=== PATIENT | male | born 1965 | race Caucasian/White ===

== ENCOUNTER 2016-08-10 21:10 | Emergency (ER) | payer OTHER ==
[~2016-08-10] VITALS: Ht 175.3 cm; Wt 77.1 kg
[~2016-08-10 21:10] MED LIST: ALBU17IN2 INH; PAXI20TA3 PO; PROP1TAB29 PO; SERO1TAB PO
[2016-08-10] MEDS ORDERED: LISI-538 PO (21:32)
[2016-08-10] MEDS ORDERED: METH40TA PO (21:32)
[2016-08-10] MEDS ORDERED: CELE20TA PO (21:32)
[2016-08-10] MEDS ORDERED: IPRATROPIUM 0.5MG/ALBUTEROL 2.5MG INH SOL UD 3ML (DUONEB)(J7620) NEB ONE (22:30)
[2016-08-10] MEDS ORDERED: methylPREDNISolone INJ 125 MG/2 ML VIAL (J2930) IV ONE (22:30)
[2016-08-10] MEDS ORDERED: ALBUTEROL SULFATE 2.5 MG/0.5 ML INH NEB SOLN INH ONE (22:30)
[2016-08-10 22:54] LABS: ABG BASE EXCESS 3.5 (-2.0-2.0); ABG HCO3 29.5 MEQ/L (22.0-26.0); ABG PARTIAL PRESSURE CO2 50.1 mmHg (35.0-45.0); ABG PARTIAL PRESSURE O2 58.1 mmHg (75.0-100.0); ABG STANDARD HCO3 27.5 MEQ/L (22.0-26.0); ABG pH (ARTERIAL) 7.388 UNITS (7.350-7.450)
[2016-08-10 23:24] LABS: BASO % 0.1 % (0.0-1.0); EOS # 0.2 K/mm3 (0.0-0.50); EOS % 1.8 % (0.0-3.0); LARGE UNSTAINED CELL # 0.1 K/mm3 (0.0-0.4); LARGE UNSTAINED CELL % 0.7 % (0.0-4.0); LYMPH # 0.8 K/mm3 (1.5-4.5); LYMPH % 9.4 % (24.0-44.0); MEAN CORPUSCULAR HEMOGLOBIN 33.2 pg (27.0-33.0); MEAN CORPUSCULAR HGB CONC 33.7 g/dl (32.0-36.5); MEAN CORPUSCULAR VOLUME 98.8 fl (80.0-96.0); MONO # 0.1 K/mm3 (0.0-0.8); MONO % 1.4 % (0.0-5.0); NEUTROPHILS # 7.8 K/mm3 (1.8-7.7); NEUTROPHILS % 86.7 % (36.0-66.0); PLATELET COUNT, AUTOMATED 218 k/mm3 (150-450); RED CELL DISTRIBUTION WIDTH 12.9 % (11.5-14.5)
[2016-08-10 23:37] LABS: ANION GAP 7 MEQ/L (8-16); BLOOD UREA NITROGEN 15 MG/DL (7-18); CALCIUM LEVEL 8.1 MG/DL (8.5-10.1); CARBON DIOXIDE LEVEL 31 MEQ/L (21-32); CHLORIDE LEVEL 101 MEQ/L (98-107); CREATININE FOR GFR 1.07 MG/DL (0.70-1.30); GLOMERULAR FILTRATION RATE > 60.0 (>60); GLUCOSE, FASTING 120 MG/DL (70-105); POTASSIUM SERUM 3.6 MEQ/L (3.5-5.1); SODIUM LEVEL 139 MEQ/L (136-145)
[2016-08-11 00:08] VITALS: O2SAT 91
[2016-08-11 00:09] VITALS: BP 110/64
[2016-08-11] MEDS ORDERED: MUCI600T34 PO (00:11)
[2016-08-11] MEDS ORDERED: ALBU17IN INH (00:11)
[2016-08-11] MEDS ORDERED: PRED20TA PO (00:11)
--- NOTE | 2016-08-11 08:48 | REP ---
Chest x-ray: Two views. History: Shortness of breath. Comparison study January 03, 2016. Findings: There are increased markings in the left base suggesting early left lower lobe infiltrate. Lung edward are otherwise well inflated and clear. Pleural angles are sharp. Cardiomediastinal silhouette is unremarkable. Impression: Subtle left base infiltrate, suspect left lower lobe pneumonia. Signed by Carlos Sherman MD 08/11/2016 08:40 A
== END 2016-08-11 00:21 | disposition home or self-care (01) ==
LOC: EDBD 21:10 → M ED 23:33
DX: J45.901 Unspecified asthma with (acute) exacerbation (principal)

== ENCOUNTER → 2016-11-02 | Outpatient (CLI) | payer OTHER ==
[~2016-11-02] MED LIST changes: +ALBU17IN INH; +CELE20TA PO; +LISI-538 PO; +METH40TA PO; +MUCI600T34 PO; +PRED20TA PO
--- NOTE | 2016-11-02 09:17 | REP ---
Right shoulder three views: Comparison is 11/08/2015. Mineralization is normal. The acromioclavicular glenohumeral articulations are unremarkable. There is no fracture or dislocation. No calcifications or foreign bodies. Impression: Negative right shoulder. There is no interval change. Sign taking Signed by Stan Torres MD 11/02/2016 09:08 A
--- NOTE | 2016-11-02 09:44 | REP ---
Cervical spine series: Eight views. History: Neck pain. Findings: Lateral views done in flexion/extension and neutral position show preserved vertebral body heights and normal alignment. No subluxation or instability is seen. Disc space narrowing and anterior and posterior osteophyte formation are seen at C4-5, C5-6, and C6-7. There is a vacuum phenomenon at the C5-6 level. These changes indicate degenerative disc disease. Swimmers lateral view shows no additional abnormality. Open-mouth odontoid and AP views are unremarkable. Oblique radiographs demonstrate uncovertebral spurring on the left producing neural foraminal narrowing at C5-6. Mild uncovertebral spurring is seen on the right at C4-5 and C5-6. Impression: Degenerative disc changes C4-5 through C6-7 as described above. Signed by Carlos Sherman MD 11/02/2016 01:18 P
== END ==
LOC: M RAD 08:23
PROVIDERS: ATTEND Nurse Practitioner Family
DX: M54.2 Cervicalgia (principal); M25.511 Pain in right shoulder

== ENCOUNTER → 2016-12-03 | Outpatient (CLI) | payer OTHER ==
[~2016-12-03] MED LIST changes: -MUCI600T34 PO; +MUCI600T37 PO; +PAXI20TA29 PO; -PAXI20TA3 PO
--- NOTE | 2016-12-03 14:02 | REP ---
MRI RIGHT SHOULDER: TECHNIQUE: Axial T2 fat sat, gradient echo, sagittal oblique T2 fat sat, coronal oblique T1, T2 fat sat. There is increased signal on T2-weighted images in the supraspinatus tendon primarily anteriorly, extending through the entire thickness of the tendon compatible with a partial full thickness tear. The rotator cuff tendons appear intact. There are mild hypertropic degenerative changes of the acromioclavicular joint. Acromion is not hooked in shape. Biceps tendon is within the bicipital groove. There is moderate fluid surrounding the biceps tendon which may indicate tenosynovitis. There is no Hill-Sach's deformity. There is no abnormal signal in the deltoid muscle. There is ill-defined high signal in the region of the superior labrum which probably represents some degree of fraying. No other definite labral tear is seen, but the study is somewhat limited due to patient motion. Subchondral cystic changes are seen in the superolateral humeral head. There is no occult fracture. There is no paralabral cyst. IMPRESSION: Full thickness partial tear anterior supraspinatus tendon. Mild hypertrophic degenerative changes acromioclavicular joint. There appears to be fraying of the superior labrum. Evaluation of the labrum is limited due to patient motion. Subchondral cystic changes superolateral humeral head. Fluid around the biceps tendon may indicate tendosynovitis. Signed by Stan Hester MD 12/03/2016 05:09 P
== END ==
LOC: M RAD 11:33
PROVIDERS: ATTEND Nurse Practitioner Family
DX: S46.011A Strain of muscle(s) and tendon(s) of the rotator cuff of right shoulder, initial encounter (principal); X58.XXXA Exposure to other specified factors, initial encounter; Y92.89 Other specified places as the place of occurrence of the external cause; Y93.89 Activity, other specified; Y99.8 Other external cause status

== ENCOUNTER → 2017-02-25 | Outpatient (REF) | payer OTHER ==
[2017-02-25 19:30] LABS: BASO # 0.1 10^3/uL (0.0-0.2); BASO % 0.4 % (0.0-1.0); EOS # 0.3 10^3/uL (0.0-0.50); EOS % 2.5 % (0.0-3.0); IMMATURE GRANULOCYTE % 0.4 % (0-0); LYMPH # 3.1 10^3/uL (1.5-4.5); LYMPH % 23.1 % (24.0-44.0); MEAN CORPUSCULAR HEMOGLOBIN 32.7 pg (27.0-33.0); MEAN CORPUSCULAR HGB CONC 33.3 g/dl (32.0-36.5); MEAN CORPUSCULAR VOLUME 98.2 fl (80.0-96.0); MONO # 1.3 10^3/uL (0.0-0.8); MONO % 9.5 % (0.0-5.0); NEUTROPHILS # 8.5 10^3/uL (1.8-7.7); NEUTROPHILS % 64.1 % (36.0-66.0); PLATELET COUNT, AUTOMATED 295 10^3/uL (150-450); RED CELL DISTRIBUTION WIDTH 12.9 % (11.5-14.5); WHITE BLOOD COUNT 13.3 10^3/uL (4.0-10.0)
[2017-02-25 20:22] LABS: VITAMIN B12 LEVEL 552 PG/ML (247-911)
[2017-02-25 20:32] LABS: ALBUMIN 3.8 GM/DL (3.2-5.2); ALBUMIN/GLOBULIN RATIO 1.03 (1.00-1.93); ALKALINE PHOSPHATASE 63 U/L (45-117); ALT/SGPT 29 U/L (12-78); ANION GAP 6 MEQ/L (8-16); AST/SGOT 21 U/L (15-37); BILIRUBIN,TOTAL 0.4 MG/DL (0.2-1.0); BLOOD UREA NITROGEN 12 MG/DL (7-18); CALCIUM LEVEL 8.9 MG/DL (8.5-10.1); CARBON DIOXIDE LEVEL 30 MEQ/L (21-32); CHLORIDE LEVEL 101 MEQ/L (98-107); CHOLESTEROL LEVEL 253 MG/DL (<200); CREATININE FOR GFR 0.76 MG/DL (0.70-1.30); FERRITIN 94 NG/ML (26-388); GLOMERULAR FILTRATION RATE > 60.0 (>60); GLUCOSE, FASTING 76 MG/DL (70-105); PERCENT SATURATION 14.8 % (19.7-50.0); POTASSIUM SERUM 4.4 MEQ/L (3.5-5.1); SODIUM LEVEL 137 MEQ/L (136-145); TOTAL IRON BINDING CAPACITY 237 UG/DL (250-450); TOTAL PROTEIN 7.5 GM/DL (6.4-8.2); TRIGLYCERIDES LEVEL 193 MG/DL (<150)
== END ==
LOC: M SFHCPLAZ 15:33
PROVIDERS: ATTEND Physician Assistant Medical
DX: Z86.2 Personal history of diseases of the blood and blood-forming organs and certain disorders involving the immune mechanism (principal); I10 Essential (primary) hypertension; E78.00 Pure hypercholesterolemia, unspecified

== ENCOUNTER → 2017-03-13 | Outpatient (REF) | payer OTHER | LOC: M SFHCPLAZ 11:36 | PROVIDERS: ATTEND Physician Assistant Medical | DX: D50.9 Iron deficiency anemia, unspecified (principal) ==

== ENCOUNTER 2017-07-30 10:42 | Outpatient (CLI) | payer OTHER ==
[2017-07-31 13:23] LABS: BASO % 0.5 % (0.0-1.0); EOS # 0.3 10^3/uL (0.0-0.50); EOS % 3.5 % (0.0-3.0); HEMATOCRIT 43.6 % (42.0-52.0); IMMATURE GRANULOCYTE % 0.5 % (0-3.0); LYMPH # 2.7 10^3/uL (1.5-4.5); MEAN CORPUSCULAR HGB CONC 34.4 g/dl (32.0-36.5); MONO # 0.6 10^3/uL (0.0-0.8); MONO % 6.8 % (0.0-5.0); NEUTROPHILS # 4.8 10^3/uL (1.8-7.7); NEUTROPHILS % 56.7 % (36.0-66.0); PLATELET COUNT, AUTOMATED 347 10^3/uL (150-450); RED BLOOD COUNT 4.69 10^6/uL (4.30-6.10); RED CELL DISTRIBUTION WIDTH 13.2 % (11.5-14.5); WHITE BLOOD COUNT 8.5 10^3/uL (4.0-10.0)
[2017-07-31 14:27] LABS: ALBUMIN 4.2 GM/DL (3.2-5.2); ALBUMIN/GLOBULIN RATIO 1.17 (1.00-1.93); ALKALINE PHOSPHATASE 84 U/L (45-117); ALT/SGPT 17 U/L (12-78); ANION GAP 9 MEQ/L (8-16); AST/SGOT 16 U/L (7-37); BILIRUBIN,TOTAL 0.4 MG/DL (0.2-1.0); BLOOD UREA NITROGEN 19 MG/DL (7-18); CARBON DIOXIDE LEVEL 27 MEQ/L (21-32); CHLORIDE LEVEL 99 MEQ/L (98-107); CREATININE FOR GFR 0.92 MG/DL (0.70-1.30); GLOMERULAR FILTRATION RATE > 60.0 (>56); GLUCOSE, FASTING 89 MG/DL (70-100); POTASSIUM SERUM 4.3 MEQ/L (3.5-5.1); SODIUM LEVEL 135 MEQ/L (136-145); TOTAL PROTEIN 7.8 GM/DL (6.4-8.2)
== END 2017-07-31 ==
LOC: M LAB 10:42
DX: F11.20 Opioid dependence, uncomplicated (principal)
CPT/HCPCS: 93005

== ENCOUNTER 2018-01-13 18:12 | Emergency (ER) | payer OTHER | END 2018-01-13 20:31 | disposition left against medical advice (07) | LOC: M ED 18:12 | DX: Z53.21 Procedure and treatment not carried out due to patient leaving prior to being seen by health care provider (principal) ==

== ENCOUNTER → 2018-07-23 | Outpatient (REF) | payer OTHER ==
[~2018-07-23] MED LIST changes: +BENA25CA4 PO; +GABA800T4 PO; +HYDR-3363 PO; +METH10CO6 PO; -PROP1TAB29 PO; +PROP20TA72 PO; +SERT-138 PO
[2018-07-23 18:08] LABS: BASO # 0.1 10^3/uL (0.0-0.2); BASO % 0.7 % (0.0-1.0); EOS # 0.4 10^3/uL (0.0-0.50); EOS % 5.5 % (0.0-3.0); HEMATOCRIT 39.3 % (42.0-52.0); HEMOGLOBIN 13.3 g/dl (13.5-17.5); LYMPH # 2.7 10^3/uL (1.5-4.5); LYMPH % 36.7 % (24.0-44.0); MEAN CORPUSCULAR HEMOGLOBIN 31.9 pg (27.0-33.0); MEAN CORPUSCULAR HGB CONC 33.8 g/dl (32.0-36.5); MEAN CORPUSCULAR VOLUME 94.2 fl (80.0-96.0); MONO # 0.8 10^3/uL (0.0-0.8); MONO % 11.1 % (0.0-5.0); NEUTROPHILS # 3.4 10^3/uL (1.8-7.7); NEUTROPHILS % 45.6 % (36.0-66.0); PLATELET COUNT, AUTOMATED 337 10^3/uL (150-450); RED BLOOD COUNT 4.17 10^6/uL (4.30-6.10); WHITE BLOOD COUNT 7.4 10^3/uL (4.0-10.0)
[2018-07-23 18:37] LABS: ALBUMIN 3.9 GM/DL (3.2-5.2); ALT/SGPT 23 U/L (12-78); BILIRUBIN,TOTAL 0.2 MG/DL (0.2-1.0); BLOOD UREA NITROGEN 22 MG/DL (7-18); CALCIUM LEVEL 8.7 MG/DL (8.5-10.1); CARBON DIOXIDE LEVEL 32 MEQ/L (21-32); CHLORIDE LEVEL 102 MEQ/L (98-107); CHOLESTEROL LEVEL 314 MG/DL (<200); CHOLESTEROL RISK RATIO 8.263 (<5); CPK CREATINE PHOSPHOKINASE 90 U/L (39-308); CREATININE FOR GFR 0.73 MG/DL (0.70-1.30); GLOMERULAR FILTRATION RATE > 60.0 (>56); GLUCOSE, FASTING 65 MG/DL (70-100); HDL CHOLESTEROL 38 MG/DL (>40); LDL CHOLESTEROL 212 MG/DL (<100); NON-HDL-C 276 MG/DL; POTASSIUM SERUM 4.6 MEQ/L (3.5-5.1); SODIUM LEVEL 137 MEQ/L (136-145); TOTAL PROTEIN 7.3 GM/DL (6.4-8.2); TRIGLYCERIDES LEVEL 322 MG/DL (<150)
== END ==
LOC: M SFHCPLAZ 15:58
PROVIDERS: ATTEND Physician Assistant Medical
DX: E78.00 Pure hypercholesterolemia, unspecified (principal); Z86.2 Personal history of diseases of the blood and blood-forming organs and certain disorders involving the immune mechanism

== ENCOUNTER 2018-07-26 10:47 | Inpatient (IN) | payer OTHER ==
[~2018-07-26] VITALS: Ht 175.3 cm; Wt 76.7 kg
--- NOTE | 2018-07-26 11:08 | REP ---
Clinical: Acute cerebrovascular accident . Comparison: 11/24/2015 . Findings: The ventricles, sulci, and cisterns are normal in position and appearance. Hester-white differentiation is maintained. No acute intracranial hemorrhage, mass/mass effect, pathology or trauma/injury. No evidence for acute infarction. No extra-axial fluid collection. Calvarium is intact. Paranasal sinuses and mastoid air cells are clear. Impression: Normal noncontrast head CT. No evidence for acute intracranial pathology or trauma/injury. Electronically Signed by Iam Garcia MD 07/26/2018 11:00 A
[2018-07-26] MEDS ORDERED: ISOVUE-370 76% 100ML VIAL (Q9967) As Ordered ONE (11:10)
--- NOTE | 2018-07-26 11:19 | REP ---
Clinical: Cerebrovascular accident . Comparison: 08/10/2016 . Findings: The mediastinum and cardiac silhouette are stable and within normal limits for portable technique. The lung edward are clear without acute consolidation, effusion, or pneumothorax. Skeletal structures are intact. Impression: No acute cardiopulmonary process appreciated. Electronically Signed by Iam aGrcia MD 07/26/2018 11:11 A
[2018-07-26] MEDS ORDERED: VENTAER INH (11:29)
[2018-07-26] MEDS ORDERED: SLEE25TA PO (11:29)
[2018-07-26 11:35] LABS: BASO % 0.2 % (0.0-1.0); EOS # 0.3 10^3/uL (0.0-0.50); EOS % 1.4 % (0.0-3.0); HEMATOCRIT 37.5 % (42.0-52.0); HEMOGLOBIN 12.3 g/dl (13.5-17.5); LYMPH # 2.2 10^3/uL (1.5-4.5); LYMPH % 11.6 % (24.0-44.0); MEAN CORPUSCULAR HEMOGLOBIN 32.5 pg (27.0-33.0); MEAN CORPUSCULAR HGB CONC 32.8 g/dl (32.0-36.5); MEAN CORPUSCULAR VOLUME 98.9 fl (80.0-96.0); MONO # 1.5 10^3/uL (0.0-0.8); MONO % 7.7 % (0.0-5.0); NEUTROPHILS # 14.9 10^3/uL (1.8-7.7); NEUTROPHILS % 78.6 % (36.0-66.0); PLATELET COUNT, AUTOMATED 299 10^3/uL (150-450); RED BLOOD COUNT 3.79 10^6/uL (4.30-6.10); WHITE BLOOD COUNT 18.9 10^3/uL (4.0-10.0)
[2018-07-26 11:42] LABS: INR 1.03; PROTHROMBIN TIME 13.6 SECONDS (12.1-14.4)
[2018-07-26 11:43] LABS: PARTIAL THROMBOPLASTIN TIME 28.8 SECONDS (25.4-37.6)
[2018-07-26] MEDS ORDERED: IPRATROPIUM 0.5MG/ALBUTEROL 2.5MG INH SOL UD 3ML (DUONEB)(J7620) NEB ONE (11:45)
[2018-07-26] MEDS ORDERED: ALBUTEROL SULFATE 2.5 MG/0.5 ML INH NEB SOLN INH ONE (11:45)
--- NOTE | 2018-07-26 11:56 | REP ---
Clinical: Left facial droop. Technique: Axial contrast enhanced images obtained in arterial angiographic phase from the skull base to the vertex with coronal and sagittal re-formations. 100 ml Isovue 370 intravenous contrast material administered without complication. Findings: Atherosclerotic disease of the intracranial internal carotid arteries noted. [place] of [place], vertebrobasilar system and arterial vasculature to the bilateral hemispheres appear intact and symmetric. No arteriovenous malformation or obvious aneurysm identified. Impression: Mild atherosclerotic changes of the visualized internal carotid arteries. Otherwise unremarkable examination without significant asymmetry, area of occlusion, AV malformation or aneurysm. Electronically Signed by Iam Garcia MD 07/26/2018 11:46 A
--- NOTE | 2018-07-26 12:07 | REP ---
Clinical: Left facial droop. Technique: Axial contrast enhanced images are obtained following the intravenous administration of 100 mL of Isovue 370. Sagittal, coronal and 3D reconstruction images are performed. Findings: Partially calcified atheromatous plaque identified at the bilateral carotid bulbs bilaterally without evidence for significant stenosis/narrowing. Asymmetric tortuosity noted of the left internal carotid artery. The bilateral common carotid arteries as well as the visualized internal carotid arteries are otherwise patent and relatively symmetric without evidence for significant stenosis. The vertebral arteries are essentially symmetric and patent. Surrounding visualized soft tissues of the neck are essentially symmetric and normal. No obvious mass lesion is appreciated. No significant adenopathy noted. Incidental note is made of mild scattered patchy ill-defined opacities in the visualized lung apices. IMPRESSION: 1. Mild mixed atheromatous plaquing of the bilateral carotid bulbs (left greater than right) without areas of stenosis. Electronically Signed by Iam Garcia MD 07/26/2018 11:58 A
[2018-07-26] MEDS ORDERED: ATORVASTATIN 20 MG TAB PO ONE (12:15)
[2018-07-26] MEDS ORDERED: ASPIRIN 81 MG CHEW TABLET PO ONE (12:15)
[2018-07-26] MEDS ORDERED: NS 1,000 ML IV ONE ×3 (12:15→14:00)
[2018-07-26 12:25] LABS: BLOOD UREA NITROGEN 35 MG/DL (7-18); CALCIUM LEVEL 8.3 MG/DL (8.5-10.1); CARBON DIOXIDE LEVEL 28 MEQ/L (21-32); CHLORIDE LEVEL 102 MEQ/L (98-107); CPK CREATINE PHOSPHOKINASE 1555 U/L (39-308); CREATININE FOR GFR 3.19 MG/DL (0.70-1.30); GLUCOSE, FASTING 89 MG/DL (70-100); MB/CK RELATIVE INDEX 6.08 (< OR =4); POTASSIUM SERUM 4.5 MEQ/L (3.5-5.1); SODIUM LEVEL 137 MEQ/L (136-145); TROPONIN I < 0.02 NG/ML (< 0.10)
[2018-07-26 14:20] LABS: SALICYLATE LEVEL 2.8 MG/DL (5.0-30.0)
[2018-07-26 14:21] LABS: ACETAMINOPHEN LEVEL < 2.0 UG/ML (10.0-30.0); ETHYL ALCOHOL (ETHANOL) < 0.003 % (0.000-0.010)
[2018-07-26 15:44] LABS: AMPHETAMINES LEVEL URINE NEGATIVE (NEGATIVE); BARBITURATES URINE NEGATIVE (NEGATIVE); BENZODIAZEPINES URINE NEGATIVE (NEGATIVE); CANNABINOIDS URINE NEGATIVE (NEGATIVE); COCAINE METABOLITE URINE NEGATIVE (NEGATIVE); METHADONE URINE POSITIVE (NEGATIVE); OPIATES URINE NEGATIVE (NEGATIVE); PHENCYCLIDINE URINE NEGATIVE (NEGATIVE)
[2018-07-26] MEDS ORDERED: ONDANSETRON 4MG/2ML VIAL (J2405) IV PRN (16:15)
[2018-07-26] MEDS: LR 1,000 ML IV SCH ×2 (16:50→20:52)
[2018-07-26] MEDS ORDERED: LevoFLOXacin IV 500 MG in APPROPRIATE DILUENT 1 EA IV ONE (17:00)
[2018-07-26 17:03] LABS: ALBUMIN 3.2 GM/DL (3.2-5.2); BILIRUBIN,TOTAL 0.4 MG/DL (0.2-1.0); CALCIUM LEVEL 7.7 MG/DL (8.5-10.1); CREATININE FOR GFR 2.48 MG/DL (0.70-1.30); GLOMERULAR FILTRATION RATE 29.4 (>56); PHOSPHORUS LEVEL 4.4 MG/DL (2.5-4.9); POTASSIUM SERUM 4.2 MEQ/L (3.5-5.1)
[2018-07-26] MEDS: METHADONE 10 MG TAB (S0109) PO SCH (17:23)
[2018-07-26] MEDS ORDERED: NS 500 ML IV ONE (18:00)
[2018-07-26] MEDS: PANTOPRAZOLE 40MG INJ (PROTONIX) (C9113) IV SCH (18:23)
[2018-07-26] MEDS: methylPREDNISolone INJ 40 MG/1 ML VIAL (J2920) IV SCH (18:23)
--- NOTE | 2018-07-26 19:18 | ECGEPIP ---
Stationary ECG Study [facility] - ED Test Date: 2018-07-26 Pat Name: JANETH BELLO Department: Room: - Gender: M Outreach Associate: TC : 1965 Requested By: Nisreen Jose Order Number: [id number] Reading MD: Nisreen Jose Measurements Intervals [place] Rate: 77 P: 33 MO: 148 QRS: 34 QRSD: 96 T: 17 QT: 364 QTc: 414 Interpretive Statements SINUS RHYTHM NONSPECIFIC T-WAVE ABNORMALITY CW 07/31/[address] T WAVE CHANGES Electronically Signed On 07-26-2018 19:18:00 EST by Nisreen Jose
[2018-07-26] MEDS: IPRATROPIUM 0.5MG/ALBUTEROL 2.5MG INH SOL UD 3ML (DUONEB)(J7620) NEB SCH (20:00)
[2018-07-26 20:40] VITALS: BP 132/63
[2018-07-26] MEDS: ENOXAPARIN 40 MG/0.4 ML SYRINGE (J1650) SC SCH (20:52)
[2018-07-26] MEDS: GABAPENTIN 400 MG CAP PO SCH (20:52)
[2018-07-26] MEDS: TAMSULOSIN 0.4 MG CAP PO SCH (20:52)
[2018-07-26 22:22] LABS: ALBUMIN 3.3 GM/DL (3.2-5.2); CALCIUM LEVEL 8.2 MG/DL (8.5-10.1); CREATININE FOR GFR 1.47 MG/DL (0.70-1.30); GLOMERULAR FILTRATION RATE 53.8 (>56); PHOSPHORUS LEVEL 1.9 MG/DL (2.5-4.9); POTASSIUM SERUM 4.6 MEQ/L (3.5-5.1)
[2018-07-26 23:59] VITALS: BP 98/55
[2018-07-27 04:00] VITALS: BP 118/65
[2018-07-27 05:52] LABS: BASO % 0.2 % (0.0-1.0); EOS % 0.3 % (0.0-3.0); HEMATOCRIT 34.5 % (42.0-52.0); HEMOGLOBIN 11.3 g/dl (13.5-17.5); LYMPH # 1.5 10^3/uL (1.5-4.5); LYMPH % 17.2 % (24.0-44.0); MEAN CORPUSCULAR HEMOGLOBIN 31.4 pg (27.0-33.0); MEAN CORPUSCULAR HGB CONC 32.8 g/dl (32.0-36.5); MEAN CORPUSCULAR VOLUME 95.8 fl (80.0-96.0); MONO # 0.4 10^3/uL (0.0-0.8); MONO % 4.6 % (0.0-5.0); NEUTROPHILS # 6.8 10^3/uL (1.8-7.7); NEUTROPHILS % 77.1 % (36.0-66.0); PLATELET COUNT, AUTOMATED 235 10^3/uL (150-450); WHITE BLOOD COUNT 8.9 10^3/uL (4.0-10.0)
[2018-07-27] MEDS: IPRATROPIUM 0.5MG/ALBUTEROL 2.5MG INH SOL UD 3ML (DUONEB)(J7620) NEB SCH ×4 (05:55→20:00)
[2018-07-27] MEDS: methylPREDNISolone INJ 40 MG/1 ML VIAL (J2920) IV SCH ×2 (05:59→17:26)
[2018-07-27] MEDS: LR 1,000 ML IV SCH ×2 (05:59→11:09)
[2018-07-27 06:13] LABS: ALBUMIN 2.8 GM/DL (3.2-5.2); ALT/SGPT 34 U/L (12-78); BILIRUBIN,TOTAL 0.6 MG/DL (0.2-1.0); BLOOD UREA NITROGEN 18 MG/DL (7-18); CALCIUM LEVEL 8.4 MG/DL (8.5-10.1); CARBON DIOXIDE LEVEL 26 MEQ/L (21-32); CHLORIDE LEVEL 111 MEQ/L (98-107); CPK CREATINE PHOSPHOKINASE 895 U/L (39-308); CREATININE FOR GFR 0.98 MG/DL (0.70-1.30); GLOMERULAR FILTRATION RATE > 60.0 (>56); GLUCOSE, FASTING 101 MG/DL (70-100); POTASSIUM SERUM 5.1 MEQ/L (3.5-5.1); SODIUM LEVEL 141 MEQ/L (136-145)
[2018-07-27 08:00] VITALS: BP 135/78
[2018-07-27] MEDS: PANTOPRAZOLE 40MG INJ (PROTONIX) (C9113) IV SCH (08:42)
[2018-07-27] MEDS: SERTRALINE HCL 50 MG TAB PO SCH (08:43)
[2018-07-27] MEDS: ASPIRIN 325 MG TAB PO SCH (08:43)
[2018-07-27] MEDS: GABAPENTIN 400 MG CAP PO SCH ×3 (08:44→20:04)
[2018-07-27] MEDS: METHADONE 10 MG TAB (S0109) PO SCH (08:44)
[2018-07-27] MEDS ORDERED: FLUBLOK(EGG FREE)(QUAD)INFLUENZA VACC 0.5ML SYRINGE (90682)18YRS&OLDER IM ONE (09:00)
--- NOTE | 2018-07-27 11:50 | IPNPDOC ---
Subjective Date Seen The patient was seen on 07/27/18. Subjective Chief Complaint/HPI desires to advance diet-took pills s difficulty, improving L sided weakness Constitutional: Denies: Chills, Fever Eyes: Denies: Pain ENT: Denies: Head Aches Skin: Denies: Rash Pulmonary: Denies: Dyspnea, Cough Cardiovascular: Denies: Chest Pain Gastrointestinal: Denies: Nausea, Vomiting Neurological: Reports: Weakness Objective Physical Examination General Exam: Positive: Alert Eye Exam: Positive: PERRLA ENT Exam: Positive: Atraumatic Neck Exam: Negative: JVD Chest Exam: Positive: Rhonchi, Diminished Heart Exam: Positive: Rate Normal Telemetry: Positive: No significant arrhythmia Abdomen Exam: Positive: Normal bowel sounds Extremity Exam: Negative: Edema Skin Exam: Negative: Rash Neuro Exam: Positive: Strength at 5/5 X4 ext (L mild facial droop, 4+/5 L LLE>LUE), Sensation Intact (decreased LT/PP L hand) Psych Exam: Positive: Mental status NL Assessment /Plan Problems (1) Non-hemorrhagic cerebrovascular accident (CVA) Status: Acute Response to Treatment: Stable Problem Specific Plan: Consult Specialist Problem Text: Continues asa 325 (started 07/26/18), rosuva 40 (started 07/27/18) 07/27/18 improving weakness 07/26/18 CT head, CTA head/neck scattered atheromatous plaque 07/27/18 MRI/MRA brain P PT/OT/ST P MBS P for 07/28 (2) Asthma exacerbation Status: Acute Problem Text: D2 levo/SM/alb/atro neb q6H 07/27 improving, AF, on RA, WBC 9 (18.9) 07/26 BCX2 NG 07/26 RP - (3) Acute kidney injury Status: Acute Problem Text: 07/27 resolved c aggressive hydration to 18/1.0, 5.1; therefore, changed LR 200H to 1/2NS 100 c slow advancement of honey-thick liquids (until MBS) (4) Physical deconditioning Status: Acute (5) Methadone maintenance therapy patient Status: Chronic Problem Text: opioid and alcohol use disorder on maintenance methadone 125 QD (per patient from [facility]) 3/ lower dose 40 administered 2 soft BP, lethargy (6) Nicotine use disorder Problem Text: baseline 10 cigs QD 3/3 + 2 mg gum per patient request (7) Rhabdomyolysis Status: Acute Problem Text: improving c hydration-/07/26 admit CPK 1563 c EMANUEL (undetermined etiology) 07/27 895 (8) Hyperlipidemia Status: Chronic Problem Text: chronic non-compliance 07/27 + rosuva 40-watch CPK (9) Hypertension Status: Chronic Problem Text: Stable off HD lisin 20 (10) BPH w urinary obs/LUTS Status: Chronic Problem Text: no evidence of obstruction of on HD tamsul 0.4 (11) MDD (major depressive disorder) Status: Chronic Problem Text: Stable on HD sert/ian Plan/VTE VTE Prophylaxis Ordered?: Yes VS, I&O, 24H, Fishbone Vital Signs/I&O Vital Signs Date Time Temp Pulse Resp B/P (MAP) Pulse Ox O2 Delivery O2 Flow Rate FiO2 07/27/18 08:44 16 07/27/18 08:00 96.5 76 135/78 (97) 97 07/26/18 11:35 Room Air I&O- Last 24 Hours up to 6 AM 07/27/18 06:00 Intake Total 2600 ml Output Total 1250 ml Balance 1350 ml Laboratory Data 24H LABS Laboratory Tests 2 07/26/18 13:55: Urine Color YELLOW, Urine Appearance CLEAR, Urine pH 5.0, Urine Specific [place] 1.020, Urine Protein NEGATIVE, Urine Glucose (UA) NEGATIVE, Urine Ketones NEGATI VE, Urine Blood 2+H, Urine Nitrite NEGATIVE, Urine Bilirubin NEGATIVE, Urine Urobilinogen 0.2, Urine Leukocyte Esterase NEGATIVE, Urine WBC (Auto) 0, Urine RBC (Auto) 0, Urine Hyaline Casts (Auto) 0, Urine Bacteria (Auto) NEGATIVE, Urine Squamous Epithelial Cells 0, Urine Sperm (Auto) , Urine Amphetamines Screen NEGATIVE, Urine Benzodiazepines Screen NEGATIVE, Urine Opiates Screen NEGATIVE, Urine Methadone Screen POSITIVEH, Urine Barbiturates Screen NEGATIVE, Urine Phencyclidine Screen NEGATIVE, Urine Cocaine Metabolite Screen NEGATIVE, Urine Cannabinoids Screen NEGATIVE 07/26/18 14:03: Lactic Acid Level 1.3 07/26/18 16:14: Anion Gap 8, Glomerular Filtration Rate 29.4L, Blood Urea Nitrogen 34H, Creatinine 2.48H, Sodium Level 138, Potassium Level 4.2, Chloride Level 107, Carbon Dioxide Level 23, Calcium Level 7.7L, Phosphorus Level 4.4, Aspartate Ami no Transf (AST/SGOT) 54H, Alanine Aminotransferase (ALT/SGPT) 29, Lactate Dehydrogenase 232, Total Creatine Kinase 1563H, Alkaline Phosphatase 51, Total Bilirubin 0.4, Triglycerides Level 106, Cholesterol Level 244H, Total Protein 6.0L, Albumin 3.2, Albumin/Globulin Ratio 1.14 07/26/18 21:32: Anion Gap 4L, Glomerular Filtration Rate 53.8L, Blood Urea Nitrogen 25H, Creatinine 1.47H, Sodium Level 140, Potassium Level 4.6, Chloride Level 112H, Carbon Dioxide Level 24, Calcium Level 8.2L, Phosphorus Level 1.9#L, Total Creatine Kinase 1555H, Albumin 3.3 07/27/18 05:35: Immature Granulocyte % (Auto) 0.6, White Blood Count 8.9, Red Blood Count 3.60L, Hemoglobin 11.3L, Hematocrit 34.5L, Mean Corpuscular Volume 95.8, Mean Corpuscular Hemoglobin 31.4, Mean Corpuscular Hemoglobin Concent 32.8, Red Cell Distribution Width 13.4, Platelet Count 235, Neutrophils (%) (Auto) 77.1H, Lymphocytes (%) (Auto) 17.2L, Monocytes (%) (Auto) 4.6, Eosinophils (%) (Auto) 0.3, Basophils (%) (Auto) 0.2, Neutrophils # (Auto) 6.8, Lymphocytes # (Auto) 1.5, Monocytes # (Auto) 0.4, Eosinophils # (Auto) 0.0, Basophils # (Auto) 0.0, Nucleated Red Blood Cells % (auto) 0.0, Anion Gap 4L, Glomerular Filtration Rate > 60.0, Blood Urea Nitrogen 18, Creatinine 0.98, Sodium Level 141, Potassium Level 5.1, Chloride Level 111H, Carbon Dioxide Level 26, Calcium Level 8.4L, Aspartate Amino Transf (AST/SGOT) 54H, Alanine Aminotransferase (ALT/SGPT) 34, Total Creatine Kinase 895H, Alkaline Phosphatase 46, Total Bilirubin 0.6, Total Protein 6.0L, Albumin 2.8L, Albumin/Globulin Ratio 0.88L CBC/BMP Laboratory Tests 07/26/18 16:14 Calcium Level 7.7 L, Phosphorus Level 4.4, Aspartate Amino Transf (AST/SGOT) 54 H, Alanine Aminotransferase (ALT/SGPT) 29, Lactate Dehydrogenase 232, Total Creatine Kinase 1563 H, Alkaline Phosphatase 51, Total Bilirubin 0.4, Triglyce rides Level 106, Cholesterol Level 244 H, Total Protein 6.0 L, Albumin 3.2 07/26/18 21:32 Anion Gap 4 L 07/27/18 05:35 Calcium Level 8.4 L, Aspartate Amino Transf (AST/SGOT) 54 H, Alanine Aminotransferase (ALT/SGPT) 34, Total Creatine Kinase 895 H, Alkaline Phosphatase 46, Total Bilirubin 0.6, Total Protein 6.0 L, Albumin 2.8 L, Red Blood Count 3.60 L, Mean Corpuscular Volume 95.8, Mean Corpuscular Hemoglobin 31.4, Mean Corpuscular Hemoglobin Concent 32.8, Red Cell Distribution Width 13.4, Neutrophils (%) (Auto) 77.1 H, Lymphocytes (%) (Auto) 17.2 L, Monocytes (%) (Auto) 4.6, Eosinophils (%) (Auto) 0.3, Basophils (%) (Auto) 0.2, Neutrophils # (Auto) 6.8, Lymphocytes # (Auto) 1.5, Monocytes # (Auto) 0.4, Eosinophils # (Auto) 0.0, Basophils # (Auto) 0.0 Microbiology Microbiology 07/26/18 Blood Culture, Received Pending 07/26/18 Blood Culture, Received Pending 07/26/18 Respiratory Virus Panel (PCR) (JILL) - Final, Complete Joe Way M.D. Jul 27, 2018 11:50
[2018-07-27 12:00] VITALS: BP 110/64
[2018-07-27] MEDS: LORazepam 2 MG/ML VIAL (J2060) IV PRN ×2 (12:53→13:21)
[2018-07-27] MEDS: ROSUVASTATIN 10 MG TAB (CRESTOR) PO SCH (12:53)
[2018-07-27] MEDS: NICOTINE POLACRILEX 2 MG GUM PO PRN (12:54)
[2018-07-27] MEDS ORDERED: METHADONE 10 MG TAB (S0109) PO ONE (13:00)
[2018-07-27] MEDS: NS 0.45% 1,000 ML IV SCH (14:40)
[2018-07-27 16:00] VITALS: BP 117/66
[2018-07-27] MEDS ORDERED: LevoFLOXacin IV 500 MG in APPROPRIATE DILUENT 1 EA IV SCH (17:00)
[2018-07-27 20:00] VITALS: BP 120/58
[2018-07-27] MEDS: TAMSULOSIN 0.4 MG CAP PO SCH (20:04)
[2018-07-27] MEDS: ENOXAPARIN 40 MG/0.4 ML SYRINGE (J1650) SC SCH (20:05)
[2018-07-28] VITALS: BP 121/74
[2018-07-28] MEDS: NS 0.45% 1,000 ML IV SCH (00:50)
[2018-07-28 04:00] VITALS: BP 115/59
[2018-07-28] MEDS: IPRATROPIUM 0.5MG/ALBUTEROL 2.5MG INH SOL UD 3ML (DUONEB)(J7620) NEB SCH ×3 (04:39→13:32)
[2018-07-28 05:17] LABS: BASO % 0.2 % (0.0-1.0); EOS % 0.4 % (0.0-3.0); HEMATOCRIT 33.9 % (42.0-52.0); HEMOGLOBIN 11.4 g/dl (13.5-17.5); LYMPH # 2.5 10^3/uL (1.5-4.5); LYMPH % 29.8 % (24.0-44.0); MEAN CORPUSCULAR HEMOGLOBIN 32.3 pg (27.0-33.0); MEAN CORPUSCULAR HGB CONC 33.6 g/dl (32.0-36.5); MONO # 0.5 10^3/uL (0.0-0.8); MONO % 5.8 % (0.0-5.0); NEUTROPHILS # 5.3 10^3/uL (1.8-7.7); NEUTROPHILS % 63.3 % (36.0-66.0); PLATELET COUNT, AUTOMATED 232 10^3/uL (150-450); RED BLOOD COUNT 3.53 10^6/uL (4.30-6.10); WHITE BLOOD COUNT 8.4 10^3/uL (4.0-10.0)
[2018-07-28 05:53] LABS: ALBUMIN 2.8 GM/DL (3.2-5.2); ALT/SGPT 30 U/L (12-78); BILIRUBIN,TOTAL 0.5 MG/DL (0.2-1.0); BLOOD UREA NITROGEN 15 MG/DL (7-18); CALCIUM LEVEL 8.4 MG/DL (8.5-10.1); CARBON DIOXIDE LEVEL 27 MEQ/L (21-32); CHLORIDE LEVEL 109 MEQ/L (98-107); CPK CREATINE PHOSPHOKINASE 245 U/L (39-308); CREATININE FOR GFR 0.75 MG/DL (0.70-1.30); GLOMERULAR FILTRATION RATE > 60.0 (>56); GLUCOSE, FASTING 87 MG/DL (70-100); POTASSIUM SERUM 4.4 MEQ/L (3.5-5.1); SODIUM LEVEL 140 MEQ/L (136-145); TOTAL PROTEIN 5.9 GM/DL (6.4-8.2)
--- NOTE | 2018-07-28 06:21 | ECHO ---
DATE OF PROCEDURE: 07/27/2018 DATE OF : 1965 AGE: 53 REFERRING PROVIDER: Dr. Joe Way. REASON FOR ECHOCARDIOGRAM: Cerebrovascular accident (CVA). 2D MEASUREMENTS: IVS: 0.8 cm LV: 5.0 cm LVPW: 0.8 cm LA: 2.8 cm Aorta: 3.0 cm IVC: 2.5 cm DOPPLER MEASUREMENTS: Peak velocity across the aortic valve: 1.9 m/s Peak velocity across the LVOT: 1.2 m/s Mitral E: 1.1 Mitral A: 0.70 Ratio 1.5 2D COMMENTS: 1. Normal left ventricular size, wall thickness and normal global left ventricular systolic function. The estimated global left ventricular systolic ejection fraction is 60% to 65%. 2. Normal left atrium. Normal right atrium and right ventricle. 3. The atrial septum appeared to be normal without evidence of defect or shunt. 4. Normal aortic root. 5. Trace pericardial effusion noted in limited views posteriorly. 6. Minimally calcified aortic valve with minimally limited leaflet motion. Normal mitral valve, normal tricuspid valve. The pulmonic valve and proximal pulmonary artery branches were not well visualized. 7. The inferior vena cava appeared to be enlarged, central venous pressure might be elevated. DOPPLER: It detects trace mitral regurgitation. Assessment of the left ventricular diastolic function appeared to be normal. IMPRESSION: 1. Normal global left ventricular systolic and diastolic function. 2. Aortic valve sclerosis with trivial aortic stenosis but no aortic regurgitation. 3. Trace mitral regurgitation. 4. Trace pericardial effusion noted posteriorly in limited views. 5. The study was technically limited due to poor acoustic window. [facility]
[2018-07-28] MEDS: methylPREDNISolone INJ 40 MG/1 ML VIAL (J2920) IV SCH (06:22)
[2018-07-28 08:00] VITALS: BP 111/64
--- NOTE | 2018-07-28 08:20 | REP ---
MR angiography the brain without contrast: History: Right hemispheric CVA. Technique: 3-D [id number] MR angiography of the brain is acquired in the usual fashion and maximal intensity projection images were generated in rotational format about the vertical and horizontal axes. In addition, source axial T1-weighted images are viewed in cine mode. MR angiographic findings: The distal vertebral arteries are patent and co-dominant. Basilar artery is a little tortuous but widely patent. The posterior cerebral and superior cerebellar vessels are normal and symmetric. The distal internal carotid arteries are unremarkable. Anterior and middle cerebral arteries appear intact. There is no visible martinez aneurysm or arteriovenous malformation. Impression: Unremarkable MR angiography the brain. Electronically Signed by Carlos Sherman MD 07/28/2018 08:12 A
--- NOTE | 2018-07-28 08:30 | REP ---
MRI brain without contrast: History: Right hemispheric CVA. Comparison CT study July 26, 2018. Technique: Axial and sagittal imaging planes are utilized for T1 and T2-weighted scans. Sequences include spin-echo, fast spin echo, FLAIR, and diffusion weighted sequences. MRI findings: Diffusion weighted sequences demonstrate multiple foci of restricted diffusion. The largest is in the right parietal lobe where there is a 3.2 cm area of gyral restricted diffusion. There are also small foci of cerebral ischemia and restricted diffusion in the occipital lobes, one foci on each side. Lastly, there is a focus of restricted diffusion in the left posterior frontal lobe white matter. These areas are consistent with cerebral ischemia. There is no evidence of intracranial hemorrhage. FLAIR and turbo spin echo T2-weighted scans demonstrate T2 hyperintensity in these regions. No T1 hypointensity is appreciated. No extra-axial fluid collection or mass is seen. Craniocervical junction is unremarkable. Impression: Scattered bilateral foci of restricted diffusion consistent with acute infarction involving right parietal lobe, left frontal lobe, and bilateral small foci in each occipital lobe. Question embolic infarction, possibly cerebral anoxic insult. Otherwise negative. Electronically Signed by Carlos Sherman MD 07/28/2018 12:40 P
[2018-07-28] MEDS: PANTOPRAZOLE 40MG INJ (PROTONIX) (C9113) IV SCH (08:42)
[2018-07-28] MEDS: SERTRALINE HCL 50 MG TAB PO SCH (08:43)
[2018-07-28] MEDS: ASPIRIN 325 MG TAB PO SCH (08:43)
[2018-07-28] MEDS: GABAPENTIN 400 MG CAP PO SCH (08:43)
[2018-07-28] MEDS: ROSUVASTATIN 10 MG TAB (CRESTOR) PO SCH (08:44)
[2018-07-28] MEDS: METHADONE 10 MG TAB (S0109) PO SCH (08:45)
[2018-07-28] MEDS: NICOTINE POLACRILEX 2 MG GUM PO PRN (08:46)
--- NOTE | 2018-07-28 10:53 | NUR ---
Pt seen for bedside swallow evaluation d/t CVA. Pt presents with mild decreased sensation of the left oral cavity. Mild oral phase dysphagia noted with decreased chewing with crunchier solids. Whole meds with thin liquid wash tolerated well. Recommend: Level 2 solids and regular thin liquids. Meds whole with liquid wash. Pt should be OOB and in full upright position for all meals. Will follow for possible upgrade as sensation improves. Oral care 3x a day Addendum: 07/28/18 at 1057 by PAXTON JONES [facility] Amended: Links added.
[2018-07-28] MEDS ORDERED: SERT50TA PO (11:43)
[2018-07-28] MEDS ORDERED: FLOM0.4C39 PO (11:43)
[2018-07-28] MEDS ORDERED: NICO2GUM40 PO (11:43)
[2018-07-28] MEDS ORDERED: PRED20TA PO (11:43)
[2018-07-28] MEDS ORDERED: ASPI1TAB20 PO (11:43)
[2018-07-28] MEDS ORDERED: CRES10TA32 PO (11:43)
[2018-07-28] MEDS ORDERED: LEVO500T3 PO (11:43)
[2018-07-28 12:00] VITALS: BP 139/83
--- NOTE | 2018-07-29 06:56 | DSES ---
DATE OF ADMISSION: 07/26/2018 DATE OF DISCHARGE: 07/28/2018 PRIMARY CARE PROVIDER: QUAN Christensen ATTENDING TODAY: Dr. Guido Lagos. HISTORY: This is a 53-year-old male patient who presented to [facility] emergency room where he suffered from left sided facial droop as well as aphasia, loss of strength, numbness to the left upper extremity. He was evaluated in the emergency room with a CT scan of the head which was benign. He was admitted to the hospital for cerebrovascular accident, started on aspirin 325 mg daily as well as rosuvastatin 40 mg daily. He has had improvement in his weakness. His speech has improved significantly. He feels as though his slight slurring of the speech is related to his left lower lip feeling numb and with decreased motion. He is also felt to be an active asthma exacerbation and was started on IV Levaquin/Solu-Medrol as well as nebulizers. His respiratory status has improved significantly. He was in mild acute renal failure which resolved with hydration. After admission, he underwent MRI of the brain which was suggestive of scattered bilateral foci of restricted diffusion consistent with acute infarct involving the right parietal lobe, left frontal lobe, bilateral small foci in each occipital lobe, question embolic infarction, possibly cerebral anoxic insult, otherwise negative. CT angio of the brain was performed in the emergency room with mild atherosclerotic changes of the visualized internal carotid arteries. Otherwise unremarkable. CTA of the neck was performed with mild mixed atheromatous plaquing of bilateral carotid bulbs left greater than right without areas of stenosis. He underwent an echocardiogram following admission with a normal ejection fraction, normal ventricular size, thickness and function, normal left atrium, normal right atrium and ventricle, normal aortic root, trace pericardial effusion noted in limited views posteriorly, minimally calcified aortic valve with minimally limited leaflet motion, normal mitral valve, normal tricuspid valve. The pulmonic valve and proximal pulmonary arteries were not well visualized. Inferior vena cava appeared to be enlarged with potentially elevated CVP. Doppler reveals trace mitral regurgitation. Left ventricular diastolic function appears to be normal. During his hospitalization, the patient has remained medically stable. He is eager to return home. DISCHARGE DIAGNOSES: Nonhemorrhagic cerebral vascular accident. Asthma exacerbation. Acute kidney injury. Physical deconditioning. Methadone maintenance therapy. Nicotine use disorder. Rhabdomyolysis. Hyperlipidemia. Hypertension. Benign prostatic hypertrophy. Major depressive disorder. DISCHARGE MEDICATION: Includes: - Sertraline 150 mg by mouth daily - aspirin 325 mg by mouth daily - Levaquin 500 mg by mouth daily times 7 days - prednisone 20 mg daily times 5 additional days - Crestor 40 mg daily - tamsulosin 0.4 mg by mouth daily - albuterol sulfate HFA two puffs inhaled every 4 hours as needed for shortness of breath - gabapentin 800 mg by mouth three times daily - hydroxyzine 25 mg by mouth every 8 hours as needed for anxiety or agitation - lisinopril 20 mg daily - methadone by mouth daily DISCHARGE PLAN: Followup with Alyson Arceo and Dr. Joe Way in 5-7 days. His diet should be regular with thin liquids, level 2 solid, soft. He had an influenza vaccine during his hospitalization. He will be referred for outpatient occupational therapy (OT)/physical therapy (PT) evaluation which the patient is aware of and agreeable to.
== END 2018-07-28 14:11 | disposition home or self-care (01) | DRG 45 ==
LOC: M ED 10:47 → M ED INP 16:13 → M PCU 20:28
PROVIDERS: ADMIT Family Medicine; ATTEND Family Medicine
DX: I63.59 Cerebral infarction due to unspecified occlusion or stenosis of other cerebral artery (principal); N17.9 Acute kidney failure, unspecified; M62.82 Rhabdomyolysis; J45.31 Mild persistent asthma with (acute) exacerbation; F11.20 Opioid dependence, uncomplicated; R47.01 Aphasia; E78.2 Mixed hyperlipidemia; I10 Essential (primary) hypertension; F17.210 Nicotine dependence, cigarettes, uncomplicated; F34.1 Dysthymic disorder; R29.810 Facial weakness; N40.0 Benign prostatic hyperplasia without lower urinary tract symptoms; J32.1 Chronic frontal sinusitis; Z79.899 Other long term (current) drug therapy

== ENCOUNTER → 2018-08-04 | Outpatient (REF) | payer OTHER ==
[~2018-08-04] MED LIST changes: +ASPI1TAB20 PO; +ASPI81TA85 PO; +B COTAB3 PO; +CRES10TA32 PO; +ELIQ5TAB PO; +FLOM0.4C39 PO; +LEVO25TA5 PO; +LEVO500T3 PO; +LISI10TA4 PO; +NICO14PA TD; +NICO2GUM34 PO; +NICO2GUM40 PO; +ROSU40TA3 PO; +SERT50TA PO; +SLEE25TA PO; +VENTAER INH
[2018-08-04 17:39] LABS: HEMOGLOBIN A1c 5.3 %
[2018-08-04 17:49] LABS: C REACTIVE PROTEIN QUANTITATIV 0.84 MG/DL (0.00-0.30); CHOLESTEROL RISK RATIO 3.352 (<5); FREE T4 0.82 NG/DL (0.76-1.46); THYROID STIMULATING HORMONE 9.57 uIU/ML (0.358-3.740)
[2018-08-04 17:55] LABS: BASO # 0.1 10^3/uL (0.0-0.2); BASO % 0.5 % (0.0-1.0); EOS # 0.3 10^3/uL (0.0-0.50); EOS % 2.9 % (0.0-3.0); HEMATOCRIT 39.5 % (42.0-52.0); HEMOGLOBIN 13.1 g/dl (13.5-17.5); LYMPH # 2.7 10^3/uL (1.5-4.5); MEAN CORPUSCULAR HEMOGLOBIN 32.2 pg (27.0-33.0); MEAN CORPUSCULAR HGB CONC 33.2 g/dl (32.0-36.5); MEAN CORPUSCULAR VOLUME 97.1 fl (80.0-96.0); MONO # 0.9 10^3/uL (0.0-0.8); MONO % 8.7 % (0.0-5.0); NEUTROPHILS # 5.7 10^3/uL (1.8-7.7); NEUTROPHILS % 58.8 % (36.0-66.0); PLATELET COUNT, AUTOMATED 336 10^3/uL (150-450); RED BLOOD COUNT 4.07 10^6/uL (4.30-6.10); WHITE BLOOD COUNT 9.8 10^3/uL (4.0-10.0)
== END ==
LOC: M SFHCPLAZ 15:31
PROVIDERS: ATTEND Family Medicine
DX: I10 Essential (primary) hypertension (principal); E78.2 Mixed hyperlipidemia; I63.9 Cerebral infarction, unspecified

== ENCOUNTER 2018-08-06 14:47 | Observation (INO) | payer OTHER ==
[~2018-08-06] VITALS: Ht 175.3 cm; Wt 79.4 kg
[2018-08-06] MEDS: LEVOTHYROXINE 25MCG TABLET (0.025MG) PO SCH (06:00)
[~2018-08-06 14:47] MED LIST changes: -ASPI81TA85 PO; -B COTAB3 PO; -ELIQ5TAB PO; -LEVO25TA5 PO; -LISI10TA4 PO; -NICO14PA TD; -NICO2GUM34 PO; -ROSU40TA3 PO
[2018-08-06] MEDS ORDERED: LEVO25TA5 PO (15:05)
[2018-08-06] MEDS ORDERED: ASPI81TA85 PO (15:05)
[2018-08-06] MEDS ORDERED: ELIQ5TAB PO (15:38)
--- NOTE | 2018-08-06 15:56 | REP ---
CT Head without contrast HISTORY: Neurologic symptoms COMPARISON: 07/26/2018 There is no intraparenchymal hemorrhage, acute infarct, mass or midline shift. The ventricular system is normal in appearance. There is no extra cerebral collection. There is no fracture. The visualized sinuses are clear. IMPRESSION: There is no intracranial lesion. Electronically Signed by Kvng Fritz MD 08/06/2018 03:47 P
[2018-08-06] MEDS ORDERED: ACETAMINOPHEN TAB 650MG DOSE (2X325MG) PO ONE (16:00)
[2018-08-06 16:21] LABS: HEMATOCRIT 36.7 % (42.0-52.0); HEMOGLOBIN 11.9 g/dl (13.5-17.5); MEAN CORPUSCULAR HEMOGLOBIN 32.2 pg (27.0-33.0); MEAN CORPUSCULAR HGB CONC 32.4 g/dl (32.0-36.5); MEAN CORPUSCULAR VOLUME 99.2 fl (80.0-96.0); PLATELET COUNT, AUTOMATED 256 10^3/uL (150-450); WHITE BLOOD COUNT 8.8 10^3/uL (4.0-10.0)
--- NOTE | 2018-08-06 16:25 | REP ---
Chest one-view HISTORY: Fever Comparison: 07/26/2018 The lungs are clear. The heart is normal in size. The pulmonary vasculature is normal in appearance. Impression: No acute disease. Electronically Signed by Kvng Fritz MD 08/06/2018 04:17 P
[2018-08-06] MEDS ORDERED: ASPIRIN 325 MG TAB PO ONE (16:30)
[2018-08-06 16:33] LABS: BLOOD UREA NITROGEN 43 MG/DL (7-18); CALCIUM LEVEL 8.6 MG/DL (8.5-10.1); CARBON DIOXIDE LEVEL 29 MEQ/L (21-32); CHLORIDE LEVEL 104 MEQ/L (98-107); CPK CREATINE PHOSPHOKINASE 130 U/L (39-308); CREATININE FOR GFR 1.92 MG/DL (0.70-1.30); GLOMERULAR FILTRATION RATE 39.5 (>56); GLUCOSE, FASTING 69 MG/DL (70-100); MB/CK RELATIVE INDEX 1.77 (< OR =4); POTASSIUM SERUM 5.5 MEQ/L (3.5-5.1); SODIUM LEVEL 137 MEQ/L (136-145); TROPONIN I < 0.02 NG/ML (< 0.10)
[2018-08-06] MEDS ORDERED: ROSU40TA3 PO (16:44)
[2018-08-06] MEDS ORDERED: NICO2GUM34 PO (16:44)
[2018-08-06] MEDS ORDERED: NS 1,000 ML IV ONE (16:45)
[2018-08-06] MEDS ORDERED: SERT50TA PO (16:46)
[2018-08-06] MEDS ORDERED: B COTAB3 PO (16:47)
[2018-08-06] MEDS ORDERED: FLOM0.4C39 PO (16:47)
[2018-08-06 17:09] LABS: INR 1.03; PROTHROMBIN TIME 13.6 SECONDS (12.1-14.4)
[2018-08-06 17:10] LABS: PARTIAL THROMBOPLASTIN TIME 31.2 SECONDS (25.4-37.6)
[2018-08-06] MEDS ORDERED: LORazepam 2 MG/ML VIAL (J2060) IV STA (17:39)
[2018-08-06] MEDS ORDERED: NICOTINE POLACRILEX 2 MG GUM PO PRN (18:45)
[2018-08-06] MEDS ORDERED: ALBUTEROL 90 MCG/ACT 8GM HFA INHALER INH PRN (18:45)
[2018-08-06] MEDS ORDERED: hydrOXYzine 25 MG TAB PO PRN (18:45)
--- NOTE | 2018-08-06 19:12 | REPVR ---
EXAM: MR Head Without Contrast EXAM DATE/TIME: 08/06/2018 6:03 PM CLINICAL HISTORY: 53 years old, male; Signs and symptoms; Other: Recurrent neuro symptoms; Additional info: Recurrent neuro symptoms, recnt embolic infarcts TECHNIQUE: MR of the head without contrast. COMPARISON: MRI-Brain without Contrast 07/27/2018 1:33 PM FINDINGS: Brain: There is a focus of abnormal gyral diffusion demonstrated in the mid posterior right parietal lobe which is visible on flair and T2 weighted images. Findings have substantially improved in comparison to the prior study. -Small focus of restricted diffusion demonstrated in the anterior parietal lobe on the left markedly decreased in signal intensity on flair weighted imaging improved in comparison to the prior study. -Foci of abnormal gyral diffusion which is no longer demonstrated on flair or T2-weighted weighted imaging demonstrated the left occipital lobe with a small barely visible similar focus in the right occipital lobe. Findings are substantially improved in comparison to prior study. Ventricles: Normal. No ventriculomegaly. Bones/joints: Unremarkable. Soft tissues: Normal. Sinuses: Normal as visualized. No acute sinusitis. Mastoid air cells: Normal as visualized. No mastoid effusion. Orbits: Unremarkable. IMPRESSION: There is a focus of abnormal gyral diffusion demonstrated in the mid posterior right parietal lobe which is visible on flair and T2 weighted images. Findings have substantially improved in comparison to the prior study. Similar improvement demonstrated in the left frontal lobe both occipital lobes. Findings may represent evolution of previously demonstrated suspected embolic infarcts. Electronically signed by: Dick Keenan On 08/06/2018 19:11:58 PM
[2018-08-06] MEDS: NS 1,000 ML IV SCH (19:30)
--- NOTE | 2018-08-06 19:34 | HPE ---
DATE OF ADMISSION: 08/06/2018 ADDENDUM Patient has been noted to have an isolated fever. He has no white count. He is symptomatic. He has no upper respiratory symptoms. He has no abdominal pain, nausea. No dysuria or frequency. Urinalysis and chest x-ray were negative. Will get a respiratory panel and see if this could be either fluid versus some kind of acute viral syndrome. For now, no antibiotics necessary.
--- NOTE | 2018-08-06 19:41 | HPE ---
DATE OF ADMISSION: 08/06/2018 53-year-old male with past medical history of hypertension, hyperlipidemia, chronic active tobacco use, quit post infarct this past month on admission presents to the emergency room after the family noticed that he has a worsening left facial droop and the visiting nurse noted the blood pressure of the patient to be 80 systolic. In the ER, the patient's blood pressure was initially 117/58. Was given gentle hydration. He did drop to 82/60 but has been maintaining systolic 110 to 120s when I was interviewing him. According to the patient, he does feel that in the last few days his left droop has worsened and he has been drooling a little bit more. No coughing. He has been eating well. His swallowing reflex has been okay and has been taking all of his medications as prescribed. ER attending called neurology who recommended the patient is staying in the hospital for a repeat MR in case there is an extension of the infarct and/or new infarcts being present. Patient denies any chest pain, shortness of breath, vertigo or headache. Again he was just discharged this past month for multiple acute infarctions that appear embolic though the patient has no history of atrial fibrillation. PAST MEDICAL HISTORY: Hypertension. Hyperlipidemia. History of opioid abuse, on methadone program. History of chronic alcoholism. Benign prostatic hypertrophy (BPH). Asthma. History of recent multiple cerebrovascular accident (CVA) with mild residual deficit. Hypothyroidism. ALLERGIES: He has no known drug allergies. FAMILY HISTORY: Noncontributory. SOCIAL HISTORY: Patient was a pack a day smoker for many years. Quit this past month after his strokes. He denies any alcohol or illicit drugs. MEDICATIONS: He takes at home are as follow: - albuterol as needed - Apixaban which was just started today 5 mg orally daily - aspirin 81 mg orally daily - B complex vitamin one tablet orally daily - gabapentin 800 mg orally three times a day - hydroxyzine 25 mg orally every 8 hours as needed - Synthroid 25 mcg orally daily - lisinopril 20 mg orally daily - methadone 223 mg orally daily - nicotine 2 mg by mouth every one hour as needed - rosuvastatin 40 mg orally daily - sertraline 50 mg orally three times a day - tamsulosin 0.4 mg orally at bedtime REVIEW OF SYSTEMS: Negative all 10 major systems except what is mentioned in HPI. VITALS: Blood pressure 95/56, heart rate 90 and regular. Respiratory rate is 16. Temperature is 101.3, oxygen saturation is 93% on 1 liter nasal cannula. Head: Atraumatic. Normocephalic. Neck: Supple. No jugular venous distention (JVD). Lungs: Clear to auscultation. S1, S2 audible. No murmurs appreciated. Abdomen: Soft, positive bowel sounds. No pedal edema. Skin: Intact. Neurological examination: Patient awake, alert and oriented times three. Patient does have a left facial droop noted though I do not know what his baseline was. He has +4 strength in his left upper extremity. No other focalities noted. LABS: WBC 8.8, hemoglobin 11.9, hematocrit 36.7, platelets are 256,000. Sodium 137, potassium 5.5, chloride 104, CO2 29, BUN is 43, creatinine is 1.92. Glucose is 69. Troponin is less than 0.02. Urinalysis shows specific urine, specific gravity of 1.019, otherwise negative urinalysis. CT head was negative for acute bleed. IMPRESSION: 1. TIA or CVA. 2. Acute kidney injury (EMANUEL). PLAN: Patient will be admitted to the PCU. Will get another MRI as per neurology and have them on consult. As far as the EMANUEL is concerned, the patient has been eating and drinking well. I believe this is likely secondary to the lisinopril. I am holding the lisinopril. I feel the lisinopril is also causing the transient hypotension. Again, it will be held for now. I will start the patient on normal saline 100 mL an hour and will monitor BUN and creatine trends. Will continue following his care in the PCU.
--- NOTE | 2018-08-06 21:05 | ECGEPIP ---
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
[2018-08-06] MEDS: GABAPENTIN 400 MG CAP PO SCH (22:30)
[2018-08-06] MEDS: TAMSULOSIN 0.4 MG CAP PO SCH (22:30)
[2018-08-06] MEDS: SERTRALINE HCL 50 MG TAB PO SCH (22:30)
[2018-08-07] MEDS: NS 1,000 ML IV SCH ×2 (05:30→15:35)
[2018-08-07] MEDS: LEVOTHYROXINE 25MCG TABLET (0.025MG) PO SCH (06:00)
[2018-08-07] MEDS ORDERED: LISINOPRIL 20 MG TAB PO SCH (09:00)
[2018-08-07] MEDS: METHADONE 10 MG TAB (S0109) PO SCH (11:25)
[2018-08-07 12:20] VITALS: BP 117/72
[2018-08-07] MEDS: SERTRALINE HCL 50 MG TAB PO SCH ×3 (12:39→20:09)
[2018-08-07] MEDS: GABAPENTIN 400 MG CAP PO SCH ×3 (12:39→20:09)
[2018-08-07] MEDS: ASPIRIN 81 MG ENTERIC TAB PO SCH (12:39)
[2018-08-07] MEDS: ROSUVASTATIN 10 MG TAB (CRESTOR) PO SCH (12:39)
[2018-08-07 14:27] LABS: HEMATOCRIT 37.2 % (42.0-52.0); HEMOGLOBIN 12.2 g/dl (13.5-17.5); MEAN CORPUSCULAR HEMOGLOBIN 32.4 pg (27.0-33.0); MEAN CORPUSCULAR HGB CONC 32.8 g/dl (32.0-36.5); MEAN CORPUSCULAR VOLUME 98.9 fl (80.0-96.0); PLATELET COUNT, AUTOMATED 214 10^3/uL (150-450); RED BLOOD COUNT 3.76 10^6/uL (4.30-6.10); WHITE BLOOD COUNT 4.6 10^3/uL (4.0-10.0)
[2018-08-07 14:44] LABS: ALBUMIN 3.4 GM/DL (3.2-5.2); ALT/SGPT 36 U/L (12-78); BILIRUBIN,TOTAL 0.4 MG/DL (0.2-1.0); BLOOD UREA NITROGEN 26 MG/DL (7-18); CALCIUM LEVEL 8.1 MG/DL (8.5-10.1); CARBON DIOXIDE LEVEL 29 MEQ/L (21-32); CHLORIDE LEVEL 107 MEQ/L (98-107); CREATININE FOR GFR 0.83 MG/DL (0.70-1.30); GLOMERULAR FILTRATION RATE > 60.0 (>56); GLUCOSE, FASTING 99 MG/DL (70-100); POTASSIUM SERUM 4.8 MEQ/L (3.5-5.1); SODIUM LEVEL 141 MEQ/L (136-145); TOTAL PROTEIN 6.2 GM/DL (6.4-8.2)
[2018-08-07 16:00] VITALS: BP 100/56
[2018-08-07] MEDS: NICOTINE 14 MG/24 HR TRANSDERMAL TD SCH (16:45)
--- NOTE | 2018-08-07 18:27 | IPNPDOC ---
Subjective Date Seen The patient was seen on 08/07/18. Subjective Chief Complaint/HPI Patient seen this morning in the ER with his mother. Last night he was with his family and clinical nursing assistant who noticed he was having left sided drooling and facial drooping. This prompted them to bring him to the emergency department. This morning he has no similar complaints and is feeling generally well. His blood pressure is low and he is concerned about that. He acknowledges left sided perioral numbness, and 1st/2nd digit numbness and weakness. Objective Physical Examination General Exam: Positive: Alert, Cooperative, No Acute Distress Eye Exam: Positive: PERRLA, Conjunctiva & lids normal, EOMI; Negative: Sclera icteric ENT Exam: Positive: Atraumatic, Mucous membr. moist/pink, Pharynx Normal Neck Exam: Positive: Supple; Negative: JVD Chest Exam: Positive: Clear to auscultation, Normal air movement; Negative: Rales, Rhonchi, Wheezing, Diminished Heart Exam: Positive: Rate Normal, Normal S1, Normal S2; Negative: Gallops, Murmurs, Rubs Abdomen Exam: Positive: Normal bowel sounds, Soft; Negative: Tenderness Extremity Exam: Negative: Edema Skin Exam: Positive: Nl turgor and temperature; Negative: Rash Neuro Exam: Positive: Normal Speech, Strength at 5/5 X4 ext, Normal Tone, Cranial Nerves 3-12 NL, Reflexes 2+; Negative: Sensation Intact (perioral numbness on the left side along V2 dermatome with slight lopsided smile. ) Psych Exam: Positive: Mental status NL, Mood NL Assessment /Plan Problems (1) TIA (transient ischemic attack) Status: Acute Problem Text: Patient presenting with symptoms of TIA, as this is the second event in recent time without the patient being seen by neurology, we will consult there service for evaluation. Dr. Way had planned on starting the patient on eliquis for suspected PAF as well as having the patient get a 30 day event monitor from cardiology, we will wait on neuro recommendations before initiating this med as the patient had yet to start it. (2) Acute kidney injury Status: Resolved Problem Text: Resolved with IV fluid hydration. 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 (7) Nicotine use disorder Status: Chronic Response to Treatment: Stable Plan/VTE VTE Prophylaxis Ordered?: Yes VS, I&O, 24H, Fishbone Vital Signs/I&O Vital Signs Date Time Temp Pulse Resp B/P (MAP) Pulse Ox O2 Delivery O2 Flow Rate FiO2 08/07/18 16:00 96.5 62 18 100/56 (71) 96 08/07/18 12:08 Room Air 08/07/18 06:00 2.0 Laboratory Data 24H LABS Laboratory Tests 2 08/07/18 13:49: Nucleated Red Blood Cells % (auto) 0.0, Anion Gap 5L, Glomerular Filtration Rate > 60.0, Blood Urea Nitrogen 26H, Creatinine 0.83#, Sodium Level 141, Potassium Level 4.8, Chloride Level 107, Carbon Dioxide Level 29, Calcium Level 8.1L, Aspartate Amino Transf (AST/SGOT) 49H, Alanine Aminotransferase (ALT/SGPT) 36, Alkaline Phosphatase 43L, Total Bilirubin 0.4, Total Protein 6.2L, Albumin 3.4, Albumin/Globulin Ratio 1.21 CBC/BMP Laboratory Tests 08/07/18 13:49 Red Blood Count 3.76 L, Mean Corpuscular Volume 98.9 H, Mean Corpuscular Hemoglobin 32.4, Mean Corpuscular Hemoglobin Concent 32.8, Red Cell Distribution Width 14.2, Calcium Level 8.1 L, Aspartate Amino Transf (AST/SGOT) 49 H, Alanine Aminotransferase (ALT/SGPT) 36, Alkaline Phosphatase 43 L, Total Bilirubin 0.4, Total Protein 6.2 L, Albumin 3.4 Microbiology Microbiology 08/06/18 Blood Culture - Preliminary, Resulted No growth after 24 hours . All specim... 08/06/18 Blood Culture - Preliminary, Resulted No growth after 24 hours . All specim... 08/06/18 Respiratory Virus Panel (PCR) (JILL) - Final, Complete GME ATTESTATION GME ATTESTATION My faculty preceptor for this patient encounter was physically present during the encounter and was fully available. All aspects of the patient interview, examination, medical decision making process, and medical care plan development were reviewed and approved by the faculty preceptor. The faculty preceptor is aware and concurs with the plan as stated in the body of this note and will attest to such by his/her cosignature. HANNAH BALDERAS DO Aug 07, 2018 18:27
[2018-08-07 20:00] VITALS: BP 108/72
[2018-08-07] MEDS: TAMSULOSIN 0.4 MG CAP PO SCH (20:09)
[2018-08-07 23:00] VITALS: BP 145/69
[2018-08-07 23:38] VITALS: BP 122/58
[2018-08-08] MEDS: NS 1,000 ML IV SCH (01:04)
[2018-08-08 04:00] VITALS: BP 111/58
[2018-08-08 05:35] LABS: HEMATOCRIT 34.4 % (42.0-52.0); HEMOGLOBIN 11.1 g/dl (13.5-17.5); MEAN CORPUSCULAR HEMOGLOBIN 31.7 pg (27.0-33.0); MEAN CORPUSCULAR HGB CONC 32.3 g/dl (32.0-36.5); MEAN CORPUSCULAR VOLUME 98.3 fl (80.0-96.0); PLATELET COUNT, AUTOMATED 180 10^3/uL (150-450); WHITE BLOOD COUNT 4.8 10^3/uL (4.0-10.0)
[2018-08-08] MEDS: LEVOTHYROXINE 25MCG TABLET (0.025MG) PO SCH (05:36)
[2018-08-08 05:56] LABS: BLOOD UREA NITROGEN 18 MG/DL (7-18); CALCIUM LEVEL 8.1 MG/DL (8.5-10.1); CARBON DIOXIDE LEVEL 27 MEQ/L (21-32); CHLORIDE LEVEL 108 MEQ/L (98-107); CREATININE FOR GFR 0.73 MG/DL (0.70-1.30); GLOMERULAR FILTRATION RATE > 60.0 (>56); GLUCOSE, FASTING 84 MG/DL (70-100); POTASSIUM SERUM 4.4 MEQ/L (3.5-5.1); SODIUM LEVEL 139 MEQ/L (136-145)
[2018-08-08 08:00] VITALS: BP 110/75
--- NOTE | 2018-08-08 08:47 | CR ---
DATE OF CONSULTATION: 08/07/2018 REASON FOR CONSULTATION: Suspected stroke. The patient is a 53-year-old male with past medical history significant for recent ischemic stroke thought to be embolic involving right parietal, left cerebral hemisphere, bilateral occipital regions. The patient was under the care of Dr. Joe Way, his primary care provider. He also has a history of hypertension, hyperlipidemia, history of tobacco abuse in the past. The patient was discharged with plans to be placed on low-dose aspirin and Eliquis. The patient could not acquire Eliquis. He presents to [facility] after being noted to have significant hypotension. The patient was presenting similar symptoms of his prior stroke, including left facial droop. He has residual paresthesia, numbness around his lip and left digits 1 and 2 of his hand. The patient states that intermittently he has had slurred speech, depending on how much he is tired. The patient is currently on lisinopril 10 mg daily. It is recommended at this point to adjust the medication to provide adequate tissue perfusion to the brain. The patient's symptoms were likely due to hypoperfusion of the brain parenchyma affected by the prior stroke. The patient does not appear to have had a new embolic stroke or ischemic stroke. MRI of the brain was completed, which was negative for that. It is unclear whether the patient had a transesophageal echocardiogram (CHRISTIE) in the past. As a young person having a stroke thought to be cardioembolic it would be necessary to eliminate the intracardiac source. Recommend transesophageal echocardiogram if not completed. Continue telemetry monitoring, physical therapy (PT), occupational therapy (OT) evaluation, adjust antihypertensive medications to optimize blood pressure keeping systolic blood pressures 110-120 rather than low 100 or 90s systolic. PAST MEDICAL HISTORY: 1. Hypertension. 2. Hyperlipidemia. 3. History of recent ischemic stroke in July 2018, thought to be embolic. 4. Hypothyroidism. 5. Asthma. 6. BPH. 7. History of chronic alcoholism. 8. History of tobacco abuse in the past. ALLERGIES: NO KNOWN DRUG ALLERGIES. FAMILY HISTORY: Noncontributory. SOCIAL HISTORY: The patient is a former smoker. He used to drink. Denies use of any illicit drugs. CURRENT MEDICATIONS: - albuterol - aspirin 81 mg by mouth daily - B complex by mouth daily - gabapentin 800 mg by mouth three times a day - hydroxyzine 25 mg by mouth every 8 hours - Synthroid 25 mcg by mouth daily - lisinopril 20 mg by mouth daily (now currently 10 mg by mouth daily) - methadone 223 mg by mouth daily - nicotine 2 mg every hour as needed - rosuvastatin 40 mg by mouth daily - sertraline 50 mg by mouth three times a day - tamsulosin 0.4 mg by mouth nightly REVIEW OF SYSTEMS: 14-point review of systems obtained and is negative except as per history of present illness (HPI). PHYSICAL EXAMINATION: Blood pressure is 100/63, pulse rate 77, respiratory rate is 18, temperature is 98.1 degrees Fahrenheit, oxygenation 96% on 2 liters nasal cannula. The patient is awake, alert, oriented to person, place and time. Speech, language, comprehension, repetition are intact. Very faint subtle left upper motor neuron weakness is noted of the face. There is no pronator drift. The patient has decrease touch sensation involving the left face perioral as well as left digits 1 and 2 of the hand. Extraocular movements are intact. Pupils are round and reactive. Tongue is midline. No weakness of sternocleidomastoids bilaterally. Hearing is subjectively equal to finger rub. Strength is 5/5 in bilateral deltoids, biceps, triceps, handgrip, iliopsoas, tibialis anterior. Sensory is intact in all four extremities with exception as mentioned above. Coordination without any gross ataxia, dysmetria. Gait deferred. ASSESSMENT: 53-year-old male with recent ischemic stroke in early July of 2017 presenting with hypotension likely resulting in hypoperfusion to the patient's prior brain parenchyma affected by stroke. At this point, it is less likely the patient had another ischemic event. There is no evidence of new stroke or cardioembolic stroke. No evidence of atrial fibrillation presently. PLAN: 1. Adjust antihypertensive medications to not be so aggressive to treat blood pressure. 2. Recommend transesophageal echocardiogram if not already completed. 3. Recommend continue telemetry monitoring. 4. Recommend increase aspirin to 325 mg p.o. daily. 5. Continue rosuvastatin 40 mg daily. 6. PT, OT evaluation. 7. Followup with primary care provider as scheduled. 8. Recommend loop recorder placement for long-term evaluation for possible paroxysmal atrial fibrillation (AFib) as a cause of the patient's multiple strokes.
[2018-08-08] MEDS ORDERED: LISINOPRIL 10 MG TAB PO SCH (09:00)
[2018-08-08 09:08] VITALS: BP 110/75
[2018-08-08] MEDS: GABAPENTIN 400 MG CAP PO SCH (09:08)
[2018-08-08] MEDS: ROSUVASTATIN 10 MG TAB (CRESTOR) PO SCH (09:08)
[2018-08-08] MEDS: ASPIRIN 81 MG ENTERIC TAB PO SCH (09:08)
[2018-08-08] MEDS: SERTRALINE HCL 50 MG TAB PO SCH (09:09)
[2018-08-08] MEDS: METHADONE 10 MG TAB (S0109) PO SCH (09:10)
[2018-08-08] MEDS: NICOTINE 14 MG/24 HR TRANSDERMAL TD SCH (09:10)
--- NOTE | 2018-08-08 09:59 | IPNPDOC ---
Subjective Date Seen The patient was seen on 08/08/18. Subjective Chief Complaint/HPI Pt this morning is feeling pretty well. He reports that his symptoms have improved. Some numbness of L upper lip and L fingers, but better than on admission. He wants to go home. Was seen by Neuro yest General: Denies: Fatigue Constitutional: Denies: Chills, Fever ENT: Denies: Head Aches Pulmonary: Denies: Dyspnea, Cough Cardiovascular: Denies: Chest Pain, Palpitations Gastrointestinal: Denies: Nausea, Vomiting, Diarrhea Neurological: Denies: Weakness Psych: Reports: Mood Normal Objective Physical Examination General Exam: Positive: Alert, Cooperative, No Acute Distress ENT Exam: Positive: Mucous membr. moist/pink Neck Exam: Positive: Supple; Negative: JVD Chest Exam: Positive: Clear to auscultation, Normal air movement; Negative: Rales, Rhonchi, Wheezing, Diminished Heart Exam: Positive: Rate Normal, Normal S1, Normal S2; Negative: Gallops, Murmurs, Rubs Abdomen Exam: Positive: Normal bowel sounds, Soft; Negative: Tenderness Extremity Exam: Negative: Edema Skin Exam: Positive: Nl turgor and temperature; Negative: Rash Neuro Exam: Positive: Normal Speech, Strength at 5/5 X4 ext, Normal Tone, Cranial Nerves 3-12 NL, Reflexes 2+; Negative: Sensation Intact (perioral numbness on the left side along V2 dermatome with slight lopsided smile. ) Psych Exam: Positive: Mental status NL, Mood NL Assessment /Plan Problems (1) TIA (transient ischemic attack) Status: Acute Problem Text: 08/08 Pt with clinical improvement, suspect symptoms related to hypotension and hypoperfusion of the brain. Pressures improved since inpt. Await input from Neuro today with dictated note. Cont with tele for now. Will need outpt event monitor. 08/07 Patient presenting with symptoms of TIA, as this is the second event in recent time without the patient being seen by neurology, we will consult there service for evaluation. Dr. Way had planned on starting the patient on eliquis for suspected PAF as well as having the patient get a 30 day event monitor from cardiology, we will wait on neuro recommendations before initiating this med as the patient had yet to start it. (2) Acute kidney injury Status: Resolved Problem Text: Resolved with IV fluid hydration. 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 (7) Nicotine use disorder Status: Chronic Response to Treatment: Stable Plan/VTE VTE Prophylaxis Ordered?: Yes VS, I&O, 24H, Fishbone Vital Signs/I&O Vital Signs Date Time Temp Pulse Resp B/P (MAP) Pulse Ox O2 Delivery O2 Flow Rate FiO2 08/08/18 09:10 18 08/08/18 09:08 110/75 08/08/18 08:00 96.8 73 97 08/07/18 12:08 Room Air 08/07/18 06:00 2.0 I&O- Last 24 Hours up to 6 AM 08/08/18 06:00 Intake Total 2040 ml Output Total 2975 ml Balance -935 ml Laboratory Data 24H LABS Laboratory Tests 2 08/07/18 13:49: Nucleated Red Blood Cells % (auto) 0.0, Anion Gap 5L, Glomerular Filtration Rate > 60.0, Blood Urea Nitrogen 26H, Creatinine 0.83#, Sodium Level 141, Potassium Level 4.8, Chloride Level 107, Carbon Dioxide Level 29, Calcium Level 8.1L, Aspartate Amino Transf (AST/SGOT) 49H, Alanine Aminotransferase (ALT/SGPT) 36, Alkaline Phosphatase 43L, Total Bilirubin 0.4, Total Protein 6.2L, Albumin 3.4, Albumin/Globulin Ratio 1.21 08/08/18 04:53: Nucleated Red Blood Cells % (auto) 0.0, Anion Gap 4L, Glomerular Filtration Rate > 60.0, Blood Urea Nitrogen 18, Creatinine 0.73, Sodium Level 139, Potassium Level 4.4, Chloride Level 108H, Carbon Dioxide Level 27, Calcium Level 8.1L CBC/BMP Laboratory Tests 08/07/18 13:49 Red Blood Count 3.76 L, Mean Corpuscular Volume 98.9 H, Mean Corpuscular Hemoglobin 32.4, Mean Corpuscular Hemoglobin Concent 32.8, Red Cell Distribution Width 14.2, Calcium Level 8.1 L, Aspartate Amino Transf (AST/SGOT) 49 H, Alanine Aminotransferase (ALT/SGPT) 36, Alkaline Phosphatase 43 L, Total Bilirubin 0.4, Total Protein 6.2 L, Albumin 3.4 08/08/18 04:53 Red Blood Count 3.50 L, Mean Corpuscular Volume 98.3 H, Mean Corpuscular Hemoglobin 31.7, Mean Corpuscular Hemoglobin Concent 32.3, Red Cell Distribution Width 13.8, Calcium Level 8.1 L Microbiology Microbiology 08/06/18 Blood Culture - Preliminary, Resulted No growth after 24 hours . All specim... 08/06/18 Blood Culture - Preliminary, Resulted No growth after 24 hours . All specim... 08/06/18 Respiratory Virus Panel (PCR) (JILL) - Final, Complete LUCIAN MARIANO PA-C Aug 08, 2018 09:59
[2018-08-08 12:00] VITALS: BP 136/65
[2018-08-08] MEDS ORDERED: LISI10TA4 PO (12:14)
[2018-08-08] MEDS ORDERED: NICO14PA TD (12:14)
== END 2018-08-08 14:56 | disposition home or self-care (01) ==
LOC: M ED 14:47 → M ED INP 18:44 → M PCU 08-07 12:19
PROVIDERS: ADMIT Internal Medicine; ATTEND Family Medicine
DX: G45.9 Transient cerebral ischemic attack, unspecified (principal); N17.9 Acute kidney failure, unspecified; I10 Essential (primary) hypertension; E78.5 Hyperlipidemia, unspecified; N40.1 Benign prostatic hyperplasia with lower urinary tract symptoms; J45.909 Unspecified asthma, uncomplicated; E03.9 Hypothyroidism, unspecified; Z86.73 Personal history of transient ischemic attack (TIA), and cerebral infarction without residual deficits; Z87.891 Personal history of nicotine dependence; Z79.51 Long term (current) use of inhaled steroids; Z79.82 Long term (current) use of aspirin; Z79.899 Other long term (current) drug therapy; F11.11 Opioid abuse, in remission; F10.21 Alcohol dependence, in remission
CPT/HCPCS: 36415; 70450; 70551; 71045; 80048; 80053; 81001; 82550; 82553; 85027; 85610; 85730; 87040; 87486; 87581; 87633; 87798; 93005; 96361; 96374; 99285; J2060

== ENCOUNTER → 2018-08-19 | Outpatient (REF) | payer OTHER ==
[~2018-08-19] MED LIST changes: +ASPI81TA85 PO; +B COTAB3 PO; +ELIQ5TAB PO; +LEVO25TA5 PO; +LISI10TA4 PO; +NICO14PA TD; +NICO2GUM34 PO; +ROSU40TA3 PO
[2018-08-19 17:48] LABS: BASO % 0.5 % (0.0-1.0); EOS # 0.3 10^3/uL (0.0-0.50); EOS % 3.4 % (0.0-3.0); HEMATOCRIT 37.8 % (42.0-52.0); HEMOGLOBIN 13.1 g/dl (13.5-17.5); LYMPH # 2.4 10^3/uL (1.5-4.5); LYMPH % 32.8 % (24.0-44.0); MEAN CORPUSCULAR HEMOGLOBIN 32.1 pg (27.0-33.0); MEAN CORPUSCULAR HGB CONC 34.7 g/dl (32.0-36.5); MEAN CORPUSCULAR VOLUME 92.6 fl (80.0-96.0); MONO # 0.6 10^3/uL (0.0-0.8); MONO % 8.1 % (0.0-5.0); NEUTROPHILS # 4.1 10^3/uL (1.8-7.7); NEUTROPHILS % 54.9 % (36.0-66.0); PLATELET COUNT, AUTOMATED 318 10^3/uL (150-450); RED BLOOD COUNT 4.08 10^6/uL (4.30-6.10); WHITE BLOOD COUNT 7.5 10^3/uL (4.0-10.0)
[2018-08-19 17:54] LABS: ALBUMIN 4.1 GM/DL (3.2-5.2); ALT/SGPT 23 U/L (12-78); BILIRUBIN,TOTAL 0.7 MG/DL (0.2-1.0); BLOOD UREA NITROGEN 13 MG/DL (7-18); CALCIUM LEVEL 9.2 MG/DL (8.5-10.1); CARBON DIOXIDE LEVEL 25 MEQ/L (21-32); CHLORIDE LEVEL 103 MEQ/L (98-107); CREATININE FOR GFR 0.95 MG/DL (0.70-1.30); GLOMERULAR FILTRATION RATE > 60.0 (>56); GLUCOSE, FASTING 77 MG/DL (70-100); POTASSIUM SERUM 4.4 MEQ/L (3.5-5.1); SODIUM LEVEL 135 MEQ/L (136-145); TOTAL PROTEIN 7.3 GM/DL (6.4-8.2)
== END ==
LOC: M SFHCPLAZ 15:06
PROVIDERS: ATTEND Physician Assistant Medical
DX: N17.9 Acute kidney failure, unspecified (principal)

== ENCOUNTER 2018-09-09 13:50 | Day surgery (SDC) | payer OTHER ==
[~2018-09-09] VITALS: Ht 175.3 cm; Wt 80.7 kg
[~2018-09-09 13:50] MED LIST changes: +CRES10TA PO; -CRES10TA32 PO; +LIDOCAINE VISCOUS 2% SOLN 15ML UDC As Ordered ONE; +LISI-542 PO; -NICO2GUM34 PO; +NICO2GUM50 PO; +SERT-141 PO; -SERT50TA PO; +ceFAZolin SOD 1 GM in D5W MINI-BAG PLUS 50 ML IV ONE
[2018-09-09] MEDS ORDERED: MIDAZOLAM INJ 2 MG/2 ML VIAL (J2250) As Ordered ONE (14:13)
[2018-09-09 15:10] VITALS: BP 105/69
[2018-09-09] MEDS ORDERED: NS 1,000 ML IV ONE (15:15)
--- NOTE | 2018-09-09 15:27 | T-ECHO ---
DATE OF PROCEDURE: 09/09/2018 REFERRING PHYSICIAN: Dr. Martinez Fabian. INDICATION: Cryptogenic stroke. PROCEDURE PERFORMED: Transesophageal echocardiogram with bubble study. PREPROCEDURE DIAGNOSIS: Cryptogenic stroke. POSTPROCEDURE DIAGNOSIS. Cryptogenic stroke, very mild aortic sclerosis with trace aortic regurgitation, no patent foramen ovale or atrial septal defect. No intracardiac bubble shunting. IV SEDATION: Midazolam 6 mg IV. PROCEDURE PERFORMED BY: Martinez Fabian MD LABORER GOLF COURSE: None. COMPLICATIONS: None. PROCEDURE DESCRIPTION: Rhythm was sinus. The patient received 50 mL of 2% Viscous lidocaine to gargle and swallow. He received a total of 6 mg of midazolam IV for light IV conscious sedation. Esophageal intubation was accomplished without difficulty using a Zoila 3D transesophageal echocardiogram probe. The atrium was intact anatomically and by color flow Doppler. Bubble study was performed twice, each time using 1 mL of the patient's own blood withdrawn from the antecubital vein into the syrine, along with 8.5 mL of normal saline and 0.5 mL of air. This was swished back and forth between a three way stopcock and this was performed twice during Valsalva maneuver with injection into the right antecubital vein. No intracardiac shunting was seen and specifically no appearance of contrast bubbles appearing in the left atrium, either from the pulmonary veins or the intraatrial septum. Left and right ventricles were normal in size and systolic function and without regional wall motion abnormalities. Left ventricular ejection fraction was 65% by visual estimate. No pericardial effusion. Aortic valve was 3-cusp and displayed mild focal thickening and minor focal calcific deposits. Trace aortic regurgitation was present. Mitral leaflets were structurally functional and without mitral regurgitation. Tricuspid and pulmonic valves were normal and without regurgitation. Distal aortic arch and descending thoracic aorta appeared normal. CONCLUSIONS: 1. Negative bubble study for detection of intracardiac shunting. Negative for detection of atrial septal defect or patent foramen ovale. 2. Mild aortic valve sclerosis of a 3- cusp aortic valve. Trace aortic regurgitation. 3. Normal left and right ventricle systolic function. LVEF 65% by visual estimate.
== END 2018-09-09 15:13 | disposition home or self-care (01) ==
LOC: M OPP 13:50
PROVIDERS: ATTEND Internal Medicine Cardiovascular Disease
DX: I35.0 Nonrheumatic aortic (valve) stenosis (principal); I35.8 Other nonrheumatic aortic valve disorders; I63.9 Cerebral infarction, unspecified; I10 Essential (primary) hypertension; E78.2 Mixed hyperlipidemia; E66.3 Overweight; E03.9 Hypothyroidism, unspecified; K21.9 Gastro-esophageal reflux disease without esophagitis; R07.9 Chest pain, unspecified; J45.909 Unspecified asthma, uncomplicated; M25.511 Pain in right shoulder; R06.83 Snoring; N40.0 Benign prostatic hyperplasia without lower urinary tract symptoms; F41.9 Anxiety disorder, unspecified; F32.9 Major depressive disorder, single episode, unspecified; Z68.25 Body mass index [BMI] 25.0-25.9, adult; Z72.0 Tobacco use; Z86.59 Personal history of other mental and behavioral disorders; Z79.899 Other long term (current) drug therapy
CPT/HCPCS: 93312; 93320; 93325; J0690; J2250

== ENCOUNTER 2018-09-10 10:34 | Day surgery (SDC) | payer OTHER ==
[~2018-09-10] VITALS: Ht 175.3 cm; Wt 80.3 kg
[~2018-09-10 10:34] MED LIST changes: -LIDOCAINE VISCOUS 2% SOLN 15ML UDC As Ordered ONE; +LIDOCAINE VISCOUS 2% SOLN 15ML UDC MT ONE; +MIDAZOLAM INJ 2 MG/2 ML VIAL (J2250) IV ONE; -ceFAZolin SOD 1 GM in D5W MINI-BAG PLUS 50 ML IV ONE
[2018-09-10] MEDS ORDERED: ceFAZolin 2 GM/D5W 50 ML IV BAG (J0690 PER 500MG) As Ordered ONE (10:58)
[2018-09-10] MEDS ORDERED: ceFAZolin 1GM INJ (J0690 PER 500MG) As Ordered ONE (11:03)
[2018-09-10] MEDS ORDERED: ceFAZolin SOD 1 GM in D5W MINI-BAG PLUS 50 ML IV ONE (11:15)
[2018-09-10] MEDS ORDERED: LIDOCAINE 1% SDV INJ 30 ML VIAL As Ordered ONE (12:03)
[2018-09-10] MEDS ORDERED: fentaNYL 100 MCG/2 ML INJECTION (J3010) As Ordered ONE (12:31)
[2018-09-10] MEDS ORDERED: PROPOFOL 200 MG/20 ML VIAL As Ordered ONE (12:31)
[2018-09-10] MEDS ORDERED: LIDOCAINE 2% INJ 100 MG/5 ML SDV (FOR ANES.) As Ordered ONE (12:31)
[2018-09-10] MEDS ORDERED: MIDAZOLAM INJ 2 MG/2 ML VIAL (J2250) As Ordered ONE (12:31)
--- NOTE | 2018-09-10 14:38 | RO ---
DATE OF PROCEDURE: 09/10/2018 PREOPERATIVE DIAGNOSIS: Cryptogenic stroke. POSTOPERATIVE DIAGNOSIS: Cryptogenic stroke. FINDINGS: Cryptogenic stroke. PROCEDURE PERFORMED: Implantation of Medtronic implantable loop recorder. SURGEON: Martinez Fabian MD BATCH STILL OPERATOR: None. ANESTHESIA: Lidocaine 1% local and monitored anesthetic care. SPECIMENS: None. ESTIMATED BLOOD LOSS: 1 mL. No blood products replaced. No drains. No complications. PROCEDURE DESCRIPTION: The patient was prepped and draped over the sternum and left anterior chest. Lidocaine 1% was used as a local anesthetic. An incision approximately 1 cm in length was made with a #15 blade at approximately the left interspace 1 inch lateral to the left midclavicular line. The guide on the insertion tool was placed into the incision and advanced into the subcutaneous fat parallel to the chest wall in a roughly 45 degree left lateral-caudal direction. The insertion tool was then rotated 180 degrees and then the plunger was placed into the insertion tool and used to advance the loop recorder into the subcutaneous tissue. The plunger was removed and then the insertion tool was removed leaving the loop recorder behind. The initial R wave amplitude varied between 1.10 and 1.50 mV. The skin was then approximated with a #4-0 Biosyn suture placed subcuticular with the ends protruding about a half centimeter from the ends of the incision on both sides. Next, two layers of DERMABOND was applied. The Biosyn suture was then snipped at one end and pulled from the other end to remove it entirely from the incision. After the two layers of DERMABOND was dry, Mastisol was applied to either side of the incision and then two 1/2 inch Steri-Strips were applied across the incision in a perpendicular fashion to the direction of the incision line. The patient tolerated the procedure well without any immediate complications. The implantable loop recorder implanted was a YES.TAP Reveal LINQ with model LNQ11 with serial number [id number].
[2018-09-10 14:50] VITALS: BP 101/61
== END 2018-09-10 14:55 | disposition home or self-care (01) ==
LOC: M SDC 10:34
PROVIDERS: ATTEND Internal Medicine Cardiovascular Disease
DX: I63.9 Cerebral infarction, unspecified (principal); I10 Essential (primary) hypertension; E78.2 Mixed hyperlipidemia; E66.3 Overweight; I25.10 Atherosclerotic heart disease of native coronary artery without angina pectoris; I65.23 Occlusion and stenosis of bilateral carotid arteries; E03.9 Hypothyroidism, unspecified; J45.909 Unspecified asthma, uncomplicated; Z79.82 Long term (current) use of aspirin; Z79.899 Other long term (current) drug therapy; Z79.01 Long term (current) use of anticoagulants; N40.0 Benign prostatic hyperplasia without lower urinary tract symptoms; F41.9 Anxiety disorder, unspecified; F32.9 Major depressive disorder, single episode, unspecified; F90.9 Attention-deficit hyperactivity disorder, unspecified type; Z87.891 Personal history of nicotine dependence
CPT/HCPCS: 33285; C1764; J0690; J2250; J3010

== ENCOUNTER → 2018-09-15 | Outpatient (REF) | payer OTHER ==
[~2018-09-15] MED LIST changes: -LIDOCAINE VISCOUS 2% SOLN 15ML UDC MT ONE; -MIDAZOLAM INJ 2 MG/2 ML VIAL (J2250) IV ONE
[2018-09-15 16:25] LABS: ALBUMIN 4.1 GM/DL (3.2-5.2); ALT/SGPT 21 U/L (12-78); BILIRUBIN,TOTAL 0.6 MG/DL (0.2-1.0); BLOOD UREA NITROGEN 19 MG/DL (7-18); CALCIUM LEVEL 9.1 MG/DL (8.5-10.1); CARBON DIOXIDE LEVEL 28 MEQ/L (21-32); CHLORIDE LEVEL 103 MEQ/L (98-107); CPK CREATINE PHOSPHOKINASE 80 U/L (39-308); FREE T4 0.79 NG/DL (0.76-1.46); GLOMERULAR FILTRATION RATE > 60.0 (>56); GLUCOSE, FASTING 84 MG/DL (70-100); SODIUM LEVEL 136 MEQ/L (136-145); TOTAL PROTEIN 7.2 GM/DL (6.4-8.2)
[2018-09-15 16:26] LABS: THYROID PEROXIDASE ANTIBODY 31.7 U/ML (<60.0); VITAMIN B12 LEVEL 369 PG/ML (247-911)
[2018-09-17 10:56] LABS: ALBUMIN 4.36 GM/DL (3.29-5.55); ALBUMIN % 60.6 % (55.8-66.1); ALPHA-1-GLOBULIN % 3.6 % (2.9-4.9); ALPHA-1-GLOBULINS 0.26 GM/DL (0.17-0.41); ALPHA-2-GLOBULINS 0.64 GM/DL (0.42-0.99); ALPHA-2-GLOBULINS % 8.9 % (7.1-11.8); BETA-1-GLOBULINS % 5.7 % (4.7-7.2); BETA-2-GLOBULINS % 6.5 % (3.2-6.5); GAMMA GLOBULIN % 14.7 % (11.1-18.8)
[2018-09-17 10:57] LABS: BETA-1-GLOBULINS 0.41 GM/DL (0.28-0.60); BETA-2-GLOBULINS 0.47 GM/DL (0.19-0.55); GAMMA GLOBULINS 1.06 GM/DL (0.65-1.58)
== END ==
LOC: M SFHCPLAZ 13:11
PROVIDERS: ATTEND Family Medicine
DX: I10 Essential (primary) hypertension (principal); E78.2 Mixed hyperlipidemia; I63.9 Cerebral infarction, unspecified

== ENCOUNTER 2019-03-08 02:46 | Emergency (ER) | payer OTHER ==
[~2019-03-08] VITALS: Ht 175.3 cm; Wt 77.3 kg
[2019-03-08 02:46] VITALS: BP 142/72
[~2019-03-08 02:46] MED LIST changes: -ASPI1TAB20 PO; +ASPI325T57 PO; -ROSU40TA3 PO; +ROSU40TA4 PO
[2019-03-08] MEDS ORDERED: PRED20TA PO (02:58)
[2019-03-08] MEDS ORDERED: diphenhydrAMINE INJ 50MG/ML VIAL (J1200) IM ONE (03:00)
[2019-03-08] MEDS ORDERED: dexameTHASONE 20 MG/5 ML VIAL (J1100) IM ONE (03:00)
== END 2019-03-08 03:23 | disposition home or self-care (01) ==
LOC: M ED 02:46
DX: T78.40XA Allergy, unspecified, initial encounter (principal); L50.9 Urticaria, unspecified; J45.909 Unspecified asthma, uncomplicated; F32.9 Major depressive disorder, single episode, unspecified; N40.1 Benign prostatic hyperplasia with lower urinary tract symptoms
CPT/HCPCS: 96372; 99283; J1100; J1200

== ENCOUNTER → 2019-04-08 | Outpatient (REF) | payer OTHER ==
[2019-04-08 11:02] LABS: BASO % 0.7 % (0.0-1.0); EOS # 0.3 10^3/uL (0.0-0.5); EOS % 5.9 % (0.0-3.0); HEMATOCRIT 40.3 % (42.0-52.0); HEMOGLOBIN 13.4 g/dl (13.5-17.5); LYMPH # 1.9 10^3/uL (1.5-5.0); LYMPH % 34.1 % (24.0-44.0); MEAN CORPUSCULAR HEMOGLOBIN 31.7 pg (27.0-33.0); MEAN CORPUSCULAR HGB CONC 33.3 g/dl (32.0-36.5); MEAN CORPUSCULAR VOLUME 95.3 fl (80.0-96.0); MONO # 0.5 10^3/uL (0.0-0.8); MONO % 9.1 % (0.0-5.0); NEUTROPHILS # 2.8 10^3/uL (1.5-8.5); NEUTROPHILS % 49.7 % (36.0-66.0); PLATELET COUNT, AUTOMATED 308 10^3/uL (150-450); RED BLOOD COUNT 4.23 10^6/uL (4.30-6.10); WHITE BLOOD COUNT 5.6 10^3/uL (4.0-10.0)
[2019-04-08 11:47] LABS: ALBUMIN 3.3 GM/DL (3.2-5.2); ALT/SGPT 19 U/L (12-78); BILIRUBIN,TOTAL 0.2 MG/DL (0.2-1.0); BLOOD UREA NITROGEN 8 MG/DL (7-18); CALCIUM LEVEL 8.7 MG/DL (8.5-10.1); CARBON DIOXIDE LEVEL 30 MEQ/L (21-32); CHLORIDE LEVEL 104 MEQ/L (98-107); CPK CREATINE PHOSPHOKINASE 92 U/L (39-308); CREATININE FOR GFR 0.85 MG/DL (0.70-1.30); FREE T4 0.78 NG/DL (0.76-1.46); GLOMERULAR FILTRATION RATE > 60.0 (>56); GLUCOSE, FASTING 71 MG/DL (70-100); POTASSIUM SERUM 4.5 MEQ/L (3.5-5.1); SODIUM LEVEL 140 MEQ/L (136-145); TOTAL PROTEIN 6.2 GM/DL (6.4-8.2)
== END ==
LOC: M SFHCPLAZ 08:17
PROVIDERS: ATTEND Physician Assistant Medical
DX: E03.9 Hypothyroidism, unspecified (principal); I10 Essential (primary) hypertension; E78.2 Mixed hyperlipidemia

== ENCOUNTER → 2019-04-27 | Outpatient (CLI) | payer OTHER ==
[2019-04-27 14:23] LABS: HEMATOCRIT 44.8 % (42.0-52.0); HEMOGLOBIN 15.1 g/dl (13.5-17.5); MEAN CORPUSCULAR HEMOGLOBIN 32.1 pg (27.0-33.0); MEAN CORPUSCULAR HGB CONC 33.7 g/dl (32.0-36.5); MEAN CORPUSCULAR VOLUME 95.3 fl (80.0-96.0); PLATELET COUNT, AUTOMATED 388 10^3/uL (150-450); WHITE BLOOD COUNT 8.6 10^3/uL (4.0-10.0)
[2019-04-27 14:53] LABS: ALT/SGPT 22 U/L (12-78); BILIRUBIN,TOTAL 0.4 MG/DL (0.2-1.0); BLOOD UREA NITROGEN 15 MG/DL (7-18); CALCIUM LEVEL 9.6 MG/DL (8.5-10.1); CARBON DIOXIDE LEVEL 26 MEQ/L (21-32); CHLORIDE LEVEL 106 MEQ/L (98-107); CREATININE FOR GFR 0.84 MG/DL (0.70-1.30); GLOMERULAR FILTRATION RATE > 60.0 (>56); GLUCOSE, FASTING 102 MG/DL (70-100); POTASSIUM SERUM 4.6 MEQ/L (3.5-5.1); SODIUM LEVEL 139 MEQ/L (136-145); TOTAL PROTEIN 7.3 GM/DL (6.4-8.2)
[2019-04-27 15:19] LABS: HEPATITIS B SURFACE ANTIGEN NEGATIVE (NEGATIVE)
[2019-04-27 15:47] LABS: HEPATITIS C VIRUS ABY INDEX 0.1 INDEX (<0.8); HIV 1&2 SCREEN CENTAUR NEGATIVE (NEGATIVE)
--- NOTE | 2019-04-27 15:57 | ECGEPIP ---
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
[2019-04-27 16:17] LABS: CHLAMYDIA DNA AMPLIFICATION NEGATIVE (NEGATIVE); GC DNA AMPLIFICATION NEGATIVE (NEGATIVE)
== END ==
LOC: M LAB 13:29
PROVIDERS: ATTEND Family Medicine
DX: F11.20 Opioid dependence, uncomplicated (principal)

== ENCOUNTER → 2019-06-02 | Outpatient (CLI) | payer OTHER ==
--- NOTE | 2019-06-02 20:16 | REPPI ---
Clinical: Pain with prior rotator cuff injury. Technique: Internal rotation, external rotation, and Y view of the right shoulder. Findings: The acromioclavicular joint is normal. There is a moderate spur along the inferior margin of the glenoid rim. Humeral head appears normal. No acute fracture dislocation. Subacromial space is normal. No periarticular calcifications or loose bodies identified. Impression: Spurring along the inferior margin of the glenoid. Otherwise age appropriate examination. Electronically Signed by Iam Garcia MD 06/02/2019 08:08 P
== END ==
LOC: M PLAIMG 14:44
PROVIDERS: ATTEND Physician Assistant Medical
DX: M75.101 Unspecified rotator cuff tear or rupture of right shoulder, not specified as traumatic (principal)

== ENCOUNTER → 2019-07-07 | Outpatient (CLI) | payer OTHER ==
[~2019-07-07] MED LIST changes: +CONRAY-43 43% 50ML VIAL (Q9960) As Ordered ONE
--- NOTE | 2019-07-07 10:25 | REP ---
CT ARTHROGRAPHY RIGHT SHOULDER: HISTORY: Right shoulder pain. No known injury. Comparison MRI study December 03, 2016. The patient has a loop recorder currently. Comparison radiographs June 02, 2019. TECHNIQUE: Injection procedure is performed and dictated separately. Post intra-articular contrast injected CT arthrography is performed with helical scanning. 3 mm axial images are reformatted. Oblique coronal and oblique sagittal multiplanar re-formation images are generated. CT ARTHROGRAPHIC FINDINGS: Digital hoop driving machine operator helper radiograph demonstrates a loop recorder projecting over the left precordium. On bone window settings, there is subcortical cyst formation in the anteromedial and posterolateral humeral head consistent with impingement. There is good filling and contrast enhancement of the glenohumeral articulation. There is also extensive filling of the subacromial subdeltoid bursa with contrast enhanced saline. There is a full-thickness distal supraspinatus tendon tear near the greater tuberosity of the proximal humerus at the distal end of the tendon. This is allowing for opacification of the subacromial subdeltoid bursa. The AC joint is not opacified. The remainder of the supraspinatus tendon is attenuated and there is narrowing of the subacromial space. There is humeral head and glenoid chondromalacia with linear fissuring in the humeral head articular cartilage and an area of attenuation and thinning anteriorly on the glenoid articular cartilage. This undermines. The anterior labrum. No loose body is seen. Biceps tendon is seen within the bony bicipital groove and appears to be intact. The infraspinatus and subscapularis tendons silhouettes are unremarkable. There is marginal spur formation on the articular margin of the humerus and on the inferior margin of the glenoid. Minimal hypertrophy is seen at the AC joint. IMPRESSION: Findings consistent with complete distal supraspinatus cuff tear with injected contrast enhanced saline filling the subacromial subdeltoid bursa in addition to the glenohumeral joint. There are areas of glenoid and humeral head chondromalacia. There is glenohumeral osteoarthritis spurring. The remaining supraspinatus tendon is attenuated and there is narrowing of the subacromial space. Electronically Signed by Carlos Sherman MD 07/07/2019 07:56 P
--- NOTE | 2019-07-07 20:02 | REP ---
RIGHT SHOULDER ARTHROGRAM The procedure was performed under the direct supervision of Dr. Sherman. The benefits and risks including but not limited to pain infection bleeding and anaphylaxis were explained to the patient and informed consent was obtained. The right glenohumeral joint space was localized using fluoroscopic guidance. The skin was prepped and draped in a sterile fashion. 1% lidocaine was used as a local anesthetic. Using fluoroscopic guidance a 22-gauge spinal needle was inserted and advanced into the joint. 11 ml of Conray 43 was injected. The needle was removed and the patient has taken to CT scan for postprocedural imaging. The patient tolerated the procedure well and there were no immediate complications. Less than 6 seconds of fluoroscopy time was utilized for this procedure. Electronically Signed by NELSON Henry 07/07/2019 04:41 P Electronically Signed by Carlos Sherman MD 07/07/2019 07:53 P
== END ==
LOC: M RADPRO 08:53
PROVIDERS: ATTEND Physician Assistant Medical
DX: M94.211 Chondromalacia, right shoulder (principal); M19.011 Primary osteoarthritis, right shoulder; M75.111 Incomplete rotator cuff tear or rupture of right shoulder, not specified as traumatic
CPT/HCPCS: 23350; 73201; 77002; Q9960

== ENCOUNTER 2019-08-31 20:59 | Emergency (ER) | payer OTHER ==
[~2019-08-31] VITALS: Ht 175.3 cm; Wt 75.0 kg
[2019-08-31 20:59] VITALS: BP 116/67
[~2019-08-31 20:59] MED LIST changes: -CONRAY-43 43% 50ML VIAL (Q9960) As Ordered ONE
[2019-08-31] MEDS ORDERED: ELIQ5TAB PO (21:04)
[2019-08-31] MEDS ORDERED: FLEET OIL RETENTION ENEMA PR STA (22:35)
[2019-08-31] MEDS ORDERED: SIME180C PO (23:09)
--- NOTE | 2019-09-01 07:41 | REP ---
REASON: Constipation. PRIORS: None. FINDINGS: KUB shows the intestinal gas pattern to be nonspecific. The organ silhouettes insofar as delineated are unremarkable. There is no evidence of free intraperitoneal air. There is a moderate amount of stool in the right colon and rectosigmoid region. IMPRESSION: Nonspecific. Electronically Signed by Wisam Loaiza DO 09/01/2019 11:35 A
== END 2019-08-31 23:19 | disposition home or self-care (01) ==
LOC: M ED 20:59
DX: K59.00 Constipation, unspecified (principal); R14.1 Gas pain; I10 Essential (primary) hypertension; E11.9 Type 2 diabetes mellitus without complications; E78.5 Hyperlipidemia, unspecified; J45.909 Unspecified asthma, uncomplicated; K21.9 Gastro-esophageal reflux disease without esophagitis; Z86.73 Personal history of transient ischemic attack (TIA), and cerebral infarction without residual deficits; Z79.899 Other long term (current) drug therapy; Z79.01 Long term (current) use of anticoagulants

== ENCOUNTER → 2020-04-07 | Outpatient (CLI) | payer OTHER ==
[~2020-04-07] MED LIST changes: -ASPI81TA85 PO; +ASPI81TA86 PO; +SIME180C PO
[2020-04-07 12:46] LABS: BASO # 0.1 10^3/uL (0.0-0.2); BASO % 0.7 % (0.0-1.0); EOS # 0.4 10^3/uL (0.0-0.5); EOS % 4.9 % (0.0-3.0); HEMATOCRIT 38.3 % (42.0-52.0); HEMOGLOBIN 12.8 g/dl (13.5-17.5); MEAN CORPUSCULAR HEMOGLOBIN 32.3 pg (27.0-33.0); MEAN CORPUSCULAR HGB CONC 33.4 g/dl (32.0-36.5); MEAN CORPUSCULAR VOLUME 96.7 fl (80.0-96.0); MONO # 0.9 10^3/uL (0.0-0.8); MONO % 11.7 % (0.0-5.0); NEUTROPHILS # 4.2 10^3/uL (1.5-8.5); NEUTROPHILS % 56.4 % (36.0-66.0); PLATELET COUNT, AUTOMATED 255 10^3/uL (150-450); RED BLOOD COUNT 3.96 10^6/uL (4.30-6.10); WHITE BLOOD COUNT 7.5 10^3/uL (4.0-10.0)
[2020-04-07 13:52] LABS: ALBUMIN 3.9 GM/DL (3.2-5.2); ALT/SGPT 23 U/L (12-78); BILIRUBIN,TOTAL 0.3 MG/DL (0.2-1.0); BLOOD UREA NITROGEN 17 MG/DL (7-18); CARBON DIOXIDE LEVEL 28 MEQ/L (21-32); CHLORIDE LEVEL 103 MEQ/L (98-107); CHOLESTEROL LEVEL 208 MG/DL (<200); CHOLESTEROL RISK RATIO 4.078 (<5); CREATININE FOR GFR 0.84 MG/DL (0.70-1.30); FREE T4 0.81 NG/DL (0.76-1.46); GLOMERULAR FILTRATION RATE > 60.0 (>56); GLUCOSE, FASTING 78 MG/DL (70-100); HDL CHOLESTEROL 51 MG/DL (>40); LDL CHOLESTEROL 139 MG/DL (<100); NON-HDL-C 157 MG/DL; POTASSIUM SERUM 4.5 MEQ/L (3.5-5.1); SODIUM LEVEL 137 MEQ/L (136-145); TOTAL PROTEIN 6.9 GM/DL (6.4-8.2); TRIGLYCERIDES LEVEL 92 MG/DL (<150)
== END ==
LOC: M LAB 11:50
PROVIDERS: ATTEND Physician Assistant Medical
DX: I10 Essential (primary) hypertension (principal); E03.9 Hypothyroidism, unspecified; F41.1 Generalized anxiety disorder; E78.2 Mixed hyperlipidemia; I63.9 Cerebral infarction, unspecified

== ENCOUNTER 2020-04-13 19:16 | Inpatient (IN) | payer OTHER ==
[~2020-04-13] VITALS: Ht 175.3 cm; Wt 81.3 kg
[~2020-04-13 19:16] MED LIST changes: -AIRD1INH3 INH; -CEFD1CAP8 PO; -DOXY100T PO; -GABA-1171 PO; -HYDR1CAP25 PO; -MAGICMW SS; -MELO15TA28 PO; -METH10CO PO; -PATIENT COMMENT; -PRED10TA2 PO; -PROAAER10 INH; -SYNT50TA PO
[2020-04-13] MEDS ORDERED: NALOXONE INJ 0.4MG/1ML VIAL (J2310 PER 1MG) As Ordered ONE (20:01)
[2020-04-13] MEDS ORDERED: FUROSEMIDE 40MG/4ML VIAL (J1940) IV ONE (20:15)
[2020-04-13] MEDS ORDERED: NALOXONE INJ 0.4MG/1ML VIAL (J2310 PER 1MG) IV STA (20:26)
[2020-04-13 20:37] LABS: BASO % 0.2 % (0.0-1.0); EOS # 0.4 10^3/uL (0.0-0.5); HEMATOCRIT 32.4 % (42.0-52.0); HEMOGLOBIN 10.3 g/dl (13.5-17.5); LYMPH # 1.2 10^3/uL (1.5-5.0); LYMPH % 11.8 % (24.0-44.0); MEAN CORPUSCULAR HGB CONC 31.8 g/dl (32.0-36.5); MEAN CORPUSCULAR VOLUME 97.6 fl (80.0-96.0); MONO # 0.4 10^3/uL (0.0-0.8); MONO % 3.5 % (0.0-5.0); NEUTROPHILS # 8.1 10^3/uL (1.5-8.5); PLATELET COUNT, AUTOMATED 247 10^3/uL (150-450); RED BLOOD COUNT 3.32 10^6/uL (4.30-6.10); WHITE BLOOD COUNT 10.1 10^3/uL (4.0-10.0)
[2020-04-13] MEDS ORDERED: APIXABAN 5 MG TAB (ELIQUIS) PO SCH (21:00)
[2020-04-13 21:16] LABS: ALBUMIN 2.5 GM/DL (3.2-5.2); BILIRUBIN,DIRECT 0.3 MG/DL (0.0-0.2); BILIRUBIN,TOTAL 0.6 MG/DL (0.2-1.0); CK-MB VALUE MASS 16.5 NG/ML (<3.6); CREATININE FOR GFR 1.39 MG/DL (0.70-1.30); FREE T4 1.23 NG/DL (0.76-1.46); GLOMERULAR FILTRATION RATE 57.1 (>56); MB/CK RELATIVE INDEX 5.34 (< OR =4); POTASSIUM SERUM 3.9 MEQ/L (3.5-5.1); THYROID STIMULATING HORMONE 1.63 uIU/ML (0.358-3.740); TOTAL PROTEIN 5.7 GM/DL (6.4-8.2); TROPONIN I 0.89 NG/ML (< 0.10)
[2020-04-13] MEDS ORDERED: DEXTROSE 50% 50 ML SYRINGE IV STA (21:40)
[2020-04-13] MEDS ORDERED: cefTRIAXone SOD 1 GM in D5W MINI-BAG PLUS 50 ML IV ONE (22:30)
--- NOTE | 2020-04-13 22:46 | HPEPDOC ---
[facility] Medical History & Physical Date of Admission Apr 13, 2020 Date of Service: Apr 13, 2020 Primary Care Physician: Alyson Arceo Attending Physician: BRENT BELL MD History and Physical CHIEF COMPLAINT: Shortness of breath HISTORY OF PRESENT ILLNESS: Patient is a 54-year-old male with multiple comorbidities who presented to the emergency department per the recommendation of his PCP. Patient states that he presented to his primary care provider's office earlier today after a 3 day history of subjective fevers chills and myalgias. He reports a 2- day history of increasing productive cough with green colored sputum. He states that he has been short of breath but that has seemed to have improved. He denies sore throat but does report left lateral tongue irritation 2/2 to a chipped L molar. Patient does carry a history of HTN, embolic CVA, HLD, mood disorder, Opioid/Alcohol use disorder (in remission and on Methadone). In the PCPs office today, patient was found to be hypoxic, saturation of 72 while in the room wearing a mask. Chest x-ray was ordered as an outpatient in addition to a number of laboratory studies. Chest x-ray did demonstrate edema, infectious versus cardiac. CBC showed a white count of 10.5, neutrophilic predominance. H/H of 11.2/35.0. BNP was ordered and found to be 4666. D-dimer of 4000. ESR of 61, CRP of 26.4. BUN/Cr of 37/1.38. Glucose of 49. In the emergency department, the above laboratory studies were repeated with values consistent with earlier results. EKG did demonstrate some ST depressions in the anterior precordial leads. Troponin of 0.89. Cardiology was contacted who felt that this was most likely secondary to demand ischemia, recommend serial troponins and echo. Patient gently diuresed with 40 of IV Lasix. He was started on ceftriaxone, azithromycin for presumed community-acquired pneumonia. Hospitalist team was contacted to admit the patient for further monitoring and management. PAST MEDICAL HISTORY: History of multiple CVAs, anticoagulation with Eliquis Essential hypertension Hyperlipidemia Opioid use disorder, methadone since 2016 Alcohol use disorder, abstinent since 2016 MDD/JANETH BPH Mild persistent asthma Hypothyroid PAST SURGICAL HISTORY: Internal heart monitor, 09/12 Endoscopy, 09/12 SOCIAL HISTORY: Marital status: Single Resides in: Rents a single story apartment in [place], [place]. Employment: Disabled Tobacco use: Former smoker, history of nicotine abuse disorder ETOH: Reports a sensation, history of alcohol abuse disorder Illicit drug use: Denies IV drug use: Denies FAMILY HISTORY: Denies any known history of colon, breast or prostate cancer. ALLERGIES: Please see below. REVIEW OF SYSTEMS: CONSTITUTIONAL: Reports a 3 day history of subjective fevers, chills, myalgias and fatigue. Denies any vickey night sweats. Reports that his weight has been stable. HEENT: Denies any headache, changes in vision, changes in hearing or ear pain/fullness. Patient does report left-sided tongue irritant secondary to left molar. Denies any difficulty swallowing or sore throat. CARDIOVASCULAR: Denies any chest pain, palpitations, near syncopal or syncopal episodes. RESPIRATORY: Admits to 23 days' worth of productive sputum, green in color. Dyspnea on exertion. Denies any hemoptysis, orthopnea, PND GASTROINTESTINAL: Reports 2 days of intermittent generalized abdominal pain, now resolved. Denies any nausea or vomiting or changes in bowel habits. GENITOURINARY: Denies any difficulty urinating. SKIN: No new rashes or bruising MUSCULOSKELETAL: No muscle aches or pains. NEUROLOGICAL: Reports some left upper lip, distal left upper and lower extremity paresthesias secondary to previous CVA. Denies any changes in sensorium or balance. PSYCHIATRIC: Admits to history of depression and anxiety, reports that it is adequately controlled with current medication. This is usually worsened and patient is unable to obtain his methadone. HOME MEDICATIONS: Please see below. PHYSICAL EXAMINATION: VITAL SIGNS: Please see below. GENERAL APPEARANCE: Patient is interviewed and examined in the emergency department. Patient was found to be resting in bed comfortably. He did not appe ar to be in any acute distress. He was conversant, able to answer questions regarding his medical history. HEENT: Normocephalic, atraumatic, EOMI, PERRLA without any obvious scleral icterus or conjunctival injection. Mucous membranes do appear dry. Patient has a very poor oral hygiene, no vickey lacerations of patient's tongue though the left side does appear irritated. No posterior erythema, tonsilar swelling/exudates noted. Nasal turbinates dry. CARDIOVASCULAR: Regular rate and rhythm without any obvious murmur. LUNGS: No conversational dyspnea noted. ABDOMEN: Soft, nontender, nondistended EXTREMITIES: No lower extremity edema. No calf tenderness. NEUROLOGICAL: No dysarthria or aphasia. Strength equal in both upper and lower extremities bilaterally. PSYCHIATRIC: Mood and affect are appropriate. LABORATORY DATA: See below. IMAGING: Chest XR (04/13/20): Diffuse patchy airspace opacities are seen bilaterally. This is seen in conjunction with increased interstitial markings. The pleural angles remain sharp. The heart is not enlarged. The osseous structures are stable and intact. Pulmonary edema either cardiogenic or infectious etiology. Correlate clinically. MICROBIOLOGY: Respiratory virus panel (04/13/20): Negative Blood cultures (04/13/20): Pending Sputum culture (04/13/20): To be collected ASSESSMENT: Patient is a 54-year-old male with a number of comorbidities, sent to the ED from PCP office after outpatient ordered labs and x-rays indicate pulmonary edema cardiogenic versus infectious. Patient carries a 3 day history of subjective fevers and chills with myalgias and a 2 day history of increasingly productive cough with green sputum. In the emergency department patient was found to be afebrile, with saturations in the low 90s on room air. EKG demonstrated small ST depressions in the precordial leads, troponin of 0.89. BNP of 4274. Cardiology was consulted by the ED provider who believes the patient's EKG findings and troponin elevation are indicative of demand ischemia. Per their recommendation, patient will be monitored with telemetry, serial tr oponins and an echocardiogram in the morning. He was started on antibiotic therapy for suspected community acquired pneumonia. PLAN: #Suspect community-acquired pneumonia -Continue ceftriaxone and azithromycin. -WBC of 10.1 in ED, neutrophilic predominance. Pt has remained afebrile. -Pro-calcitonin, Sputum culture pending. -Duonebs and supplemental oxygen #Elevated troponin -Case was discussed with cardiology in the emergency department. EKG does demonstrate some ST depressions in the anterioseptal leads. -Cardiology seems to be in favor of a demand ischemia. He does remain asymptomatic. -Placed on telemetry. We'll continue to monitor troponins throughout the evening. Will speak with cardiology if upward trending. -Echocardiogram ordered for tomorrow. Repeat troponin at 0245 of 2.10. Pt asymptomatic, EKG without ischemic changes. Case again discussed with cardiology who suspects elevation 2/2 to viral eduard/myocarditis. Recommend following trops and echocardiography this morning. Dx supported by elevations of CRP/ESR and BNP. #EMANUEL -Creatinine of 1.39 upon presentation, 0.84 on 04/07/20. -Pt did receive a single dose of 40 mg Lasix IV in the ED. -Gentle PO hydration in the setting of elevated BNP, pending echocardiogram. -Serial CMP for monitoring #Hypoglycemia -Glucose of 49 on presentation. 74 s/p D50w -Patient reports regular dietary habits. -Continue to monitor. #Left lateral tongue irritation -Secondary to poor dental hygiene. -Magic mouthwash PRN. -Recommend dental follow-up after discharge. #Hypertension Normotensive through ED visit. Patient reports that his PCP has taken him off his lisinopril. #History of multiple CVAs -Stable, continue Eliquis and statin #MDD/JANETH -Stable, continue home SSRI. -Limit hydroxyzine PRN #Right supraspinatus tear -Meloxicam and Gabapentin -Will hold Meloxicam 2/2 to increase CVD risk. #Hypothyroid -Continue home levothyroxine 50 mcg. #BPH -Continue home tamsulosin #Methadone dependence -Follows with [facility] DVT PROPHYLAXIS: Teds and sequentials. DISPOSITION: Pending clinical improvement, and to speak tonight's days. Vital Signs Vital Signs Date Time Temp Pulse Resp B/P (MAP) Pulse Ox O2 Delivery O2 Flow Rate FiO2 04/13/20 22:16 75 88 04/13/20 22:15 121/64 (83) 04/13/20 20:54 Nasal Cannula 2.0 04/13/20 19:17 98.7 14 Laboratory Data Labs 24H Laboratory Tests 2 04/13/20 20:09: Immature Granulocyte % (Auto) 0.5, Neutrophils (%) (Auto) 80.0H, Lymphocytes (%) (Auto) 11.8L, Monocytes (%) (Auto) 3.5, Eosinophils (%) (Auto) 4.0H, Basophils (%) (Auto) 0.2, Neutrophils # (Auto) 8.1, Lymphocytes # (Auto) 1.2L, Monocytes # (Auto) 0.4, Eosinophils # (Auto) 0.4, Basophils # (Auto) 0.0, Nucleated Red Blood Cells % (auto) 0.3H, Anion Gap 5L, Glomerular Filtration Rate 57.1, Calcium Level 8.0L, Total Bilirubin 0.6, Direct Bilirubin 0.3H, Aspartate Amino Transf (AST/SGOT) 40H, Alanine Aminotransferase (ALT/SGPT) 17, Alkaline Phosphatase 95, Total Creatine Kinase 309H, Creatine Kinase MB 16.5H, Creatine Kinase MB Relative Index 5.34H, Troponin I 0.89H, MP-Icp-T-Type Natriuretic Peptide 4274H, Total Protein 5.7L, Albumin 2.5L, Albumin/Globulin Ratio 0.8, Thyroid Stimulating Hormone (TSH) 1.630, Free Thyroxine 1.23 CBC/BMP Laboratory Tests 04/13/20 20:09 Microbiology Microbiology 04/13/20 Respiratory Virus Panel (PCR) (JILL) - Final, Complete 04/13/20 Blood Culture, Received Pending 04/13/20 Blood Culture, Received Pending Home Medications Scheduled Apixaban (Eliquis) 5 Mg Tablet, 5 MG PO BID Cefdinir (Cefdinir) 300 Mg Capsule, 300 MG PO BID Doxycycline Hyclate (Doxycycline Hyclate) 100 Mg Tablet, 100 MG PO BID Fluticasone Propion/Salmeterol (Airduo Respiclick 232-14 Mcg) 1 Each Aer.pow.ba, 1 PUFF INH BID HAS NOT STARTED YET Gabapentin (Gabapentin) 100 Mg Capsule, 100 MG PO TID TAKES WITH 800MG FOR 900MG TID Gabapentin (Gabapentin) 800 Mg Tablet, 800 MG PO TID TAKES WITH 100MG FOR 900MG TID Levothyroxine Sodium (Synthroid) 50 Mcg Tablet, 50 MCG PO DAILY Meloxicam (Meloxicam) 15 Mg Tablet, 15 MG PO DAILY Methadone HCl (Methadone HCl) 10 Mg/1 Ml Oral.conc, 138 MG PO DAILY Prednisone (Prednisone) 10 Mg Tablet, 10 MG PO TAPER Take 4 tabs daily x 3 days, then 3 tabs daily x 3 days, then 2 tabs daily x 3 days, then 1 tab daily x 3 days and stop Rosuvastatin Calcium (Rosuvastatin Calcium) 40 Mg Tablet, 40 MG PO DAILY Sertraline HCl (Sertraline HCl) 100 Mg Tablet, 100 MG PO BID Tamsulosin HCl (Flomax) 0.4 Mg Capsule, 0.4 MG PO QHS Scheduled PRN Albuterol Sulfate (Proair Hfa) 8.5 Gm Hfa.aer.ad, 2 PUFF INH Q8H PRN for WHEEZING Hydroxyzine Pamoate (Hydroxyzine Pamoate) 25 Mg Capsule, 25 MG PO Q8H PRN for ANXIETY Magic Mouthwash (First-Mouthwash Blm) 1 Ea Susp, 0 EA SS Q4HP PRN for DISCOMFORT Allergies Coded Allergies: No Known Allergies (Unverified , 09/03/18) A-FIB/CHADSVASC A-FIB History Current/History of A-Fib/PAF?: No Current PO Anticoag Therapy: Yes Age/Risk Factor Scoring CHADSVASC: CHADSVASC Response (Comments) Value Age Risk Factor Age < 65 years old 0 Gender Risk Factor Male 0 Hx of HTN Yes 1 Hx of Stroke/TIA/or VTE Yes 2 Total 3 GME ATTESTATION GME ATTESTATION My faculty preceptor for this patient encounter was physically present during the encounter and was fully available. All aspects of the patient interview, examination, medical decision making process, and medical care plan development were reviewed and approved by the faculty preceptor. The faculty preceptor is aware and concurs with the plan as stated in the body of this note and will attest to such by his/her cosignature. ATTENDING NOTE TIME OF SERVICE 1130PM is a 54 yr old w a hx of alcoholism HTN, dyslipidemia, asthma, multiple CVAs, and Hypothyroidism who presented w c/o fever and cough productive of green sputum; he will be admitted for evaluation of dyspnea possibly due to pneumonitis vs pulm edema & type 2 NSTEMI. 1.Dyspnea possibly due to pneumonitis vs pulm edema - O2, pulse ox & supplemental O2, f/u Echo 2. Elevated troponin possibly 2/2 myocarditis vs type 2 NSTEMI vs reduced trop clearance due to EMANUEL - per d/w trend trops, no need for transfer, no need to switch to Heparin drip and DAPT right now 3. Encephalopathy 2/2 hypoglycemia vs methadone OD - D5NS, neuro checks, FSBS, narcan PRN 4. Macrocytic anemia - f/u iron studies, B12 and folate 5. EMANUEL - IVF, f/u ulytes & renal US rest per 's H&P BROCK PEARSON DO Apr 13, 2020 22:46 BRENT BELL MD Apr 14, 2020 05:32
[2020-04-13] MEDS ORDERED: AZITHROMYCIN INJ 500 MG, VIAL MATE ADAPTER 1 EACH in D5W 250 ML IV ONE (23:00)
[2020-04-13 23:12] LABS: VENOUS BASE EXCESS 4.6 (-2.0-2.0); VENOUS HCO3 29.7 MEQ/L (23.0-27.0); VENOUS O2 SATURATION 97.1 % (60.0-80.0); VENOUS PARTIAL PRESSURE CO2 46.5 mmHg (38.0-50.0); VENOUS PARTIAL PRESSURE O2 96.6 mmHg (30.0-50.0); VENOUS PH 7.423 UNITS (7.330-7.430); VENOUS STANDARD HCO3 28.6 MEQ/L; VENOUS TOTAL CO2 31.1 MEQ/L (24.0-28.0)
[2020-04-13] MEDS ORDERED: ACETAMINOPHEN TAB 650MG DOSE (2X325MG) PO PRN (23:15)
[2020-04-13] MEDS ORDERED: IPRATROPIUM 0.5MG/ALBUTEROL 2.5MG INH SOL UD 3ML (DUONEB) INH PRN (23:15)
[2020-04-13] MEDS ORDERED: ALBUTEROL SULFATE 2.5 MG/0.5 ML INH NEB SOLN INH PRN (23:15)
[2020-04-13] MEDS ORDERED: hydrOXYzine 25 MG TAB PO PRN (23:30)
[2020-04-13] MEDS ORDERED: ALBUTEROL 90 MCG/ACT 8GM HFA INHALER INH PRN (23:30)
[2020-04-14] VITALS (8 sets, daily range): BP systolic 100–119; BP diastolic 55–73; O2SAT 92–94
[2020-04-14] MEDS ORDERED: MAGIC MOUTHWASH SUSPENSION BTL SS PRN
[2020-04-14] MEDS ORDERED: ELIQ5TAB PO (00:07)
[2020-04-14] MEDS ORDERED: HYDR1CAP25 PO (00:07)
[2020-04-14] MEDS ORDERED: ROSU40TA4 PO (00:07)
[2020-04-14] MEDS ORDERED: MELO15TA28 PO (00:07)
[2020-04-14] MEDS ORDERED: METH10CO PO (00:07)
[2020-04-14] MEDS ORDERED: PROAAER10 INH (00:07)
[2020-04-14] MEDS ORDERED: SYNT50TA PO (00:07)
[2020-04-14] MEDS ORDERED: GABA800T4 PO (00:07)
[2020-04-14] MEDS ORDERED: GABA-1171 PO (00:07)
[2020-04-14] MEDS ORDERED: FLOM0.4C39 PO (00:07)
[2020-04-14] MEDS ORDERED: SERT-138 PO (00:07)
[2020-04-14] MEDS ORDERED: AIRD1INH3 INH (00:07)
[2020-04-14] MEDS ORDERED: PATIENT COMMENT (00:08)
[2020-04-14] MEDS ORDERED: D5W/0.9% SODIUM CHLORIDE 1,000 ML IV SCH ×2 (01:15→14:00)
[2020-04-14] MEDS ORDERED: NALOXONE INJ 0.4MG/1ML VIAL (J2310 PER 1MG) IV PRN (01:15)
[2020-04-14 01:42] LABS: PERCENT SATURATION 4.9 % (19.7-50.0)
[2020-04-14 02:50] LABS: HEMATOCRIT 30.9 % (42.0-52.0); HEMOGLOBIN 9.7 g/dl (13.5-17.5); MEAN CORPUSCULAR HGB CONC 31.4 g/dl (32.0-36.5); MEAN CORPUSCULAR VOLUME 98.7 fl (80.0-96.0); PLATELET COUNT, AUTOMATED 238 10^3/uL (150-450); RED BLOOD COUNT 3.13 10^6/uL (4.30-6.10); WHITE BLOOD COUNT 8.7 10^3/uL (4.0-10.0)
[2020-04-14] MEDS: SERTRALINE 100 MG TAB PO SCH ×3 (02:58→20:39)
[2020-04-14] MEDS: GABAPENTIN 300 MG CAP PO SCH ×4 (02:58→20:40)
[2020-04-14] MEDS: TAMSULOSIN 0.4 MG CAP PO SCH ×2 (02:58→20:39)
[2020-04-14 03:25] LABS: ALBUMIN 2.3 GM/DL (3.2-5.2); BILIRUBIN,TOTAL 0.5 MG/DL (0.2-1.0); CALCIUM LEVEL 8.2 MG/DL (8.5-10.1); CREATININE FOR GFR 1.48 MG/DL (0.70-1.30); GLOMERULAR FILTRATION RATE 53.1 (>56); MAGNESIUM LEVEL 2.4 MG/DL (1.8-2.4); PHOSPHORUS LEVEL 4.8 MG/DL (2.5-4.9); POTASSIUM SERUM 3.8 MEQ/L (3.5-5.1); TROPONIN I 2.1 NG/ML (< 0.10)
[2020-04-14] MEDS ORDERED: HEPARIN SOD (PORCINE) 5000UNITS/ML 1ML VIAL/SYRINGE IV PRN (04:00)
[2020-04-14] MEDS ORDERED: ASPIRIN 81 MG CHEW TABLET PO ONE (04:00)
[2020-04-14 04:56] LABS: CHOLESTEROL RISK RATIO 2.562 (<5)
[2020-04-14 05:01] LABS: HEMOGLOBIN A1c 5.2 %
[2020-04-14] MEDS: LEVOTHYROXINE 50MCG TABLET (0.05MG) PO SCH (06:26)
[2020-04-14] MEDS ORDERED: NS 1,000 ML IV SCH ×2 (08:30→09:30)
[2020-04-14] MEDS: ROSUVASTATIN 10 MG TAB (CRESTOR) PO SCH (08:58)
[2020-04-14] MEDS: APIXABAN 5 MG TAB (ELIQUIS) PO SCH ×2 (08:59→20:40)
[2020-04-14] MEDS ORDERED: METHADONE 10 MG TAB (S0109) PO SCH (09:00)
[2020-04-14] MEDS ORDERED: GABAPENTIN 100 MG CAP PO SCH (09:00)
[2020-04-14 09:07] LABS: BASO % 0.5 % (0.0-1.0); EOS # 0.4 10^3/uL (0.0-0.5); EOS % 5.5 % (0.0-3.0); HEMOGLOBIN 9.7 g/dl (13.5-17.5); LYMPH # 0.9 10^3/uL (1.5-5.0); LYMPH % 11.8 % (24.0-44.0); MEAN CORPUSCULAR HGB CONC 31.3 g/dl (32.0-36.5); MONO # 0.2 10^3/uL (0.0-0.8); NEUTROPHILS # 6.3 10^3/uL (1.5-8.5); NEUTROPHILS % 78.7 % (36.0-66.0); PLATELET COUNT, AUTOMATED 236 10^3/uL (150-450); RED BLOOD COUNT 3.13 10^6/uL (4.30-6.10)
--- NOTE | 2020-04-14 09:16 | REP ---
INDICATION: Cough / SOB COMPARISON: None TECHNIQUE: Axial noncontrast images from the thoracic inlet to the upper abdomen with coronal and sagittal reformations. This CT examination was performed using the following dose reduction techniques: Automated exposure control, adjustment of mA and/or kv according to the patient's size, and use of iterative reconstruction technique. FINDINGS: Diffuse bilateral alveolar infiltrates are appreciated throughout the bilateral lung edward with associated mediastinal and hilar adenopathy as well as small pleural effusions. Left axillary adenopathy with inflammatory stranding is also noted. No pneumothorax. Atherosclerotic changes to the thoracic aorta and coronary arteries noted without aortic aneurysm or cardiomegaly/pericardial effusion. Limited upper abdomen cannot exclude subtle mesenteric stranding in the right upper quadrant and possible small reactive lymph nodes in the right upper quadrant/celiac axis distribution. Cholelithiasis also identified. IMPRESSION: 1. Diffuse significant bilateral alveolar infiltrates compatible with multifocal pneumonia including small pleural effusions and reactive adenopathy. 2. Adenopathy and fat stranding in the left axillary region is also appreciated and warrants investigation. 3. Cholelithiasis with possible subtle inflammatory stranding and reactive lymph nodes in the right upper quadrant/celiac axis distribution warranting further investigation. <Electronically signed by Iam Garcia > 04/14/20 0940
[2020-04-14] MEDS: DOXYCYCLINE HYCLATE 100MG TABLET PO SCH ×2 (09:32→20:39)
[2020-04-14 09:37] LABS: ALBUMIN 2.3 GM/DL (3.2-5.2); BILIRUBIN,TOTAL 0.5 MG/DL (0.2-1.0); C REACTIVE PROTEIN QUANTITATIV 20.7 MG/DL (0.00-0.30); CK-MB VALUE MASS 18.9 NG/ML (<3.6); CREATININE FOR GFR 1.39 MG/DL (0.70-1.30); GLOMERULAR FILTRATION RATE 57.1 (>56); MAGNESIUM LEVEL 2.5 MG/DL (1.8-2.4); MB/CK RELATIVE INDEX 7.59 (< OR =4); POTASSIUM SERUM 3.7 MEQ/L (3.5-5.1); TOTAL PROTEIN 5.4 GM/DL (6.4-8.2); TROPONIN I 2.03 NG/ML (< 0.10)
[2020-04-14 10:27] LABS: FOLATE 19.3 NG/ML (>5.4)
--- NOTE | 2020-04-14 10:43 | REP ---
INDICATION: gema COMPARISON: None TECHNIQUE: Real time brumfield scale ultrasound examination using curved array transducer. FINDINGS: The bilateral kidneys are normal in contour, size, echogenicity, and reniform shape without hydronephrosis, nephrolithiasis, cystic or renal mass lesion. Right kidney measures 10.6 x 5.4 x 4.5 cm. Left kidney measures 10.4 x 4.3 x 4.6 cm. Bladder is grossly unremarkable. Incidental findings include cholelithiasis and small right pleural effusion. IMPRESSION: 1. Normal appearance of bilateral kidneys 2. Cholelithiasis 3. Small right pleural effusion <Electronically signed by Iam Garcia > 04/14/20 [id number]
--- NOTE | 2020-04-14 14:26 | ECGEPIP ---
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
--- NOTE | 2020-04-14 14:40 | IPNPDOC ---
Date Seen The patient was seen on 04/14/20. Progress Note SUBJECTIVE: The patient was seen and examined at the bedside this morning. He reports that he came to the ED because of fevers, shortness of breath, cough, and concern for an infected tooth. This morning, he feels that his shortness of breath has somewhat improved but he still has a lot of congestion and pain on his tooth. He denies any chest pain, shortness of breath, abdominal pain, lightheadedness or dizziness. OBJECTIVE PHYSICAL EXAMINATION: VITAL SIGNS: see below GENERAL: alert and oriented, in no apparent distress, pleasant and conversant in full sentences. HEENT: PERRL, EOMI, Oral mucous membranes are moist without lesions. NECK: The patient has no noted JVD. No adenopathy is appreciated. No thyromegaly CHEST/LUNGS: There is diffuse wheezing in all lung edward bilaterally. There is no subcutaneous air appreciated. There is no tenderness to the chest wall. HEART:Regular rate and rhythm. No murmurs, rubs, or gallops are appreciated. Distal pulses are 2+. No carotid bruits appreciated. ABDOMEN: Soft, nontender, and nondistended. Bowel sounds are positive. No organomegaly is appreciated. No masses are appreciated. There are no peritoneal signs. There is no [place] sign. EXTREMITIES: No peripheral edema. There is no focal long bone tenderness or deformity. SKIN: The patients skin is warm and dry, without rashes or lesions. PSYCHIATRIC: AAO x 3, normal mood/affect NEUROLOGIC: The patient has 5/5 strength to the upper and lower extremities bilaterally. Sensation is intact throughout. Deep tendon reflexes are 2+ in all four extremities. There are no deficits to the cranial nerves. LABORATORY DATA, IMAGING STUDIES, MICROBIOLOGY: Please see below. RENAL US: FINDINGS: The bilateral kidneys are normal in contour, size, echogenicity, and reniform shape without hydronephrosis, nephrolithiasis, cystic or renal mass lesion. Right kidney measures 10.6 x 5.4 x 4.5 cm. Left kidney measures 10.4 x 4.3 x 4.6 cm. Bladder is grossly unremarkable. Incidental findings include cholelithiasis and small right pleural effusion. IMPRESSION: 1. Normal appearance of bilateral kidneys 2. Cholelithiasis 3. Small right pleural effusion CHEST CT: FINDINGS: Diffuse bilateral alveolar infiltrates are appreciated throughout the bilateral lung edward with associated mediastinal and hilar adenopathy as well as small pleural effusions. Left axillary adenopathy with inflammatory stranding is also noted. No pneumothorax. Atherosclerotic changes to the thoracic aorta and coronary arteries noted without aortic aneurysm or cardiomegaly/pericardial effusion. Limited upper abdomen cannot exclude subtle mesenteric stranding in the right upper quadrant and possible small reactive lymph nodes in the right upper quadrant/celiac axis distribution. Cholelithiasis also identified. IMPRESSION: 1. Diffuse significant bilateral alveolar infiltrates compatible with multifocal pneumonia including small pleural effusions and reactive adenopathy. 2. Adenopathy and fat stranding in the left axillary region is also appreciated and warrants investigation. 3. Cholelithiasis with possible subtle inflammatory stranding and reactive lymph nodes in the right upper quadrant/celiac axis distribution warranting further investigation. Echocardiogram: Pending official read. I did speak with Dr. Guzman this morning who, on quick read, notes that left atrial size was borderline enlarged, ejection fraction was essentially normal, left atrial pressure is around 10, no noted wall motion abnormality, and the patient has a mild pulmonary hypertension. CVP was normal DVT prophylaxis ordered?: KATTY/SCDs ASSESSMENT AND PLAN: This is a 54-year-old male with history of multiple CVAs, hypertension, hyperlipidemia and opioid use disorder who presented with shortness of breath, productive cough and congestion concerning for pneumonia found to have elevated troponins without EKG changes that is concerning for type II DC. PROBLEMS: 1. Elevated troponin: Concern for type II DC versus demand ischemia versus viral myocarditis -Troponin trend: 0.89 - 2.10 - 2.08 - 2.03 -EKG shows sinus rhythm with no ST changes -Patient denies any chest pain or shortness of breath that is worse than yeste rday -Case discussed with cardiology (Thomas) who looked at the patient's echo and notes no abnormalities other than some mild coronary hypertension. He suggested the elevated troponin is most likely from demand ischemia versus viral myocarditis. Consult placed. Appreciate recommendations -BNP elevated at 4274. No signs of hypervolemia. Will consider rechecking this tomorrow 2. Presumed community-acquired pneumonia: -Azithromycin changed to doxycycline due to prolonged QTC, measured at 476 -Continue course of doxycycline and ceftriaxone -CT demonstrates diffuse significant bilateral alveolar infiltrates compatible with multifocal pneumonia -Pro calcitonin elevated at 53.16 -CRP elevated at 20.7 -IV fluids D5/normal saline 100 mL per hour. Will change back to normal saline once the patient gets his liver ultrasound 3. Cholelithiasis finding on US/CT: -Incidental finding on chest CT and renal ultrasound: Cholelithiasis with possible subtle inflammatory stranding and reactive lymph nodes in the right upper quadrant/celiac axis -Liver ultrasound pending -Liver function studies have been normal and patient denies any abdominal pain 4. Acute kidney injury: Creatinine trended down to 1.39 from 1.48 -Likely prerenal. Will continue to trend -Holding all nephrotoxic medications 5. History of Hypertension: -Blood pressures have been stable 6. ?paroxysmal AF: -Patient currently sees Dr. Fabian and has loop recorder in -Continue [place] 7. History of multiple strokes: -Continue Crestor 8. Mood disorder: -Continue home Zoloft and Atarax 9. Hypothyroidism: -Continue levothyroxin 50 g daily 10. BPH: -Patient is not having any urinary issues. Continue Flomax 11. Methadone dependence: -Continue home methadone; will verify with pharmacy DISPOSITION: Pending clinical improvement VS, I&O, 24H, [facility] Vital Signs/I&O Vital Signs Date Time Temp Pulse Resp B/P (MAP) Pulse Ox O2 Delivery O2 Flow Rate FiO2 04/14/20 12:00 96.7 75 20 110/69 (83) 96 Nasal Cannula 4.0 I&O- Last 24 Hours up to 6 AM 04/14/20 06:00 Intake Total 665 ml Output Total 0 ml Balance 665 ml Laboratory Data 24H LABS Laboratory Tests 2 04/13/20 20:09: Immature Granulocyte % (Auto) 0.5, Neutrophils (%) (Auto) 80.0H, Lymphocytes (%) (Auto) 11.8L, Monocytes (%) (Auto) 3.5, Eosinophils (%) (Auto) 4.0H, Basophils (%) (Auto) 0.2, Neutrophils # (Auto) 8.1, Lymphocytes # (Auto) 1.2L, Monocytes # (Auto) 0.4, Eosinophils # (Auto) 0.4, Basophils # (Auto) 0.0, Nucleated Red Blood Cells % (auto) 0.3H, Anion Gap 5L, Glomerular Filtration Rate 57.1, Ca lcium Level 8.0L, Iron Level 7L, Total Iron Binding Capacity 142L, Transferrin % Saturation 4.9L, Ferritin 208, Total Bilirubin 0.6, Direct Bilirubin 0.3H, Aspartate Amino Transf (AST/SGOT) 40H, Alanine Aminotransferase (ALT/SGPT) 17, Alkaline Phosphatase 95, Total Creatine Kinase 309H, Creatine Kinase MB 16.5H, Creatine Kinase MB Relative Index 5.34H, Troponin I 0.89H, LQ-Epy-O-Type Natriuretic Peptide 4274H, Total Protein 5.7L, Albumin 2.5L, Albumin/Globulin Ratio 0.8, Vitamin B12 Level 871, Folate 19.3, Thyroid Stimulating Hormone (TSH) 1.630, Free Thyroxine 1.23 04/13/20 23:04: Blood Gas Bicarbonate Standard 28.6, Venous Blood pH 7.423, Venous Blood Partial Pressure CO2 46.5, Venous Blood Partial Pressure O2 96.6H, Venous Blood Total Carbon Dioxide 31.1H, Venous Blood HCO3 29.7H, Venous Blood Oxygen Saturation 97.1H, Venous Blood Base Excess 4.6H 04/13/20 23:43: Bedside Glucose (Misc Panel) 74 04/14/20 01:37: Bedside Glucose (Misc Panel) 84 04/14/20 02:43: Estimated Mean Plasma Glucose 103, Hemoglobin A1c 5.2 04/14/20 02:45: Nucleated Red Blood Cells % (auto) 0.3H, Anion Gap 4L, Glomerular Filtration Rate 53.1L, Calcium Level 8.2L, Phosphorus Level 4.8, Magnesium Level 2.4, Total Bilirubin 0.5, Aspartate Amino Transf (AST/SGOT) 44H, Alanine Aminotransferase (ALT/SGPT) 20, Alkaline Phosphatase 84, Total Creatine Kinase 263, Troponin I 2.10#*H, Total Protein 6.0L, Albumin 2.3L, Albumin/Globulin Ratio 0.6, Triglycerides Level 70, Total Cholesterol 82, LDL Cholesterol 36, Non-HDL Cholesterol (LDL + VLDL) 50, Total HDL Cholesterol 32L, Cholesterol/HDL Ratio 2.562 04/14/20 05:56: Bedside Glucose (Misc Panel) 98 04/14/20 08:35: Nucleated Red Blood Cells % (auto) 0.3H, Anion Gap 6L, Glomerular Filtration Rate 57.1, Calcium Level 8.0L, Magnesium Level 2.5H, Total Bilirubin 0.5, Aspartate Amino Transf (AST/SGOT) 44H, Alanine Aminotransferase (ALT/SGPT) 20, Alkaline Phosphatase 88, Total Creatine Kinase 249, Troponin I 2.03*H, Total Protein 5.4L, Albumin 2.3L, Albumin/Globulin Ratio 0.7, Immature Granulocyte % (Auto) 0.5, Neutrophils (%) (Auto) 78.7H, Lymphocytes (%) (Auto) 11.8L, Monocytes (%) (Auto) 3.0, Eosinophils (%) (Auto) 5.5H, Basophils (%) (Auto) 0.5, Neutrophils # (Auto) 6.3, Lymphocytes # (Auto) 0.9L, Monocytes # (Auto) 0.2, Eosinophils # (Auto) 0.4, Basophils # (Auto) 0.0, Creatine Kinase MB 18.9H, Crea agustina Kinase MB Relative Index 7.59H, C-Reactive Protein, Quantitative 20.70H 04/14/20 10:56: Coronavirus (COVID-19)(PCR) NEGATIVE 04/14/20 13:15: Bedside Glucose (Misc Panel) 61L 04/14/20 13:45: CBC/BMP Laboratory Tests 04/13/20 20:09 04/14/20 02:45 04/14/20 08:35 Microbiology Microbiology 04/13/20 Respiratory Virus Panel (PCR) (JILL) - Final, Complete 04/13/20 Blood Culture, Received Pending 04/13/20 Blood Culture, Received Pending GME ATTESTATION GME ATTESTATION My faculty preceptor for this patient encounter was physically present during the encounter and was fully available. All aspects of the patient interview, examination, medical decision making process, and medical care plan development were reviewed and approved by the faculty preceptor. The faculty preceptor is aware and concurs with the plan as stated in the body of this note and will attest to such by his/her cosignature. ATTENDING NOTE I, Hetal Montero, have independently examined this patient and performed my own physical exam, as well as reviewed the documentation and edited where necessary. I have discussed in detail with the resident / student the findings and plan of treatment as documented by the resident / student and edited their note. I agree with their findings and treatment plan and have edited their documentation. I will continue to follow the patient during this hospital stay. DELVIN MARTINEZ MD Apr 14, 2020 14:40 HETAL MONTERO MD Apr 14, 2020 15:41
--- NOTE | 2020-04-14 15:31 | REP ---
INDICATION: inflammation/adenopathy concern for cholecystitis. COMPARISON: None. TECHNIQUE: Real-time sonographic evaluation of right upper quadrant performed. FINDINGS: There is a gallstone in the gallbladder. It measures about 1.5 cm in diameter. There is no gallbladder wall thickening.. There is no intrahepatic or extrahepatic biliary dilatation, common bile duct measures 4 mm in maximum diameter. The liver demonstrates homogeneous echotexture with no gross mass. Pancreas is not well visualized due to overlying bowel gas. The right kidney demonstrates no hydronephrosis, with a normal size of 10.6 cm in length. No free fluid is seen. IMPRESSION: There is a gallstone in the gallbladder. There is no gallbladder wall thickening, pericholecystic fluid or biliary dilatation. <Electronically signed by Stan Hester > 04/14/20 3214
[2020-04-14 17:08] LABS: POTASSIUM RANDOM URINE 17.8 MEQ/L; TOTAL PROTEIN,RANDOM URINE 57.4 MG/DL (0.0-12.0)
[2020-04-14 17:15] LABS: AMPHETAMINES URINE REFLEX NEGATIVE (NEGATIVE); BARBITURATES URINE REFLEX NEGATIVE (NEGATIVE); BENZODIAZEPINES URINE REFLEX PENDING CONFIRMATION (NEGATIVE); CANNABINOIDS URINE REFLEX NEGATIVE (NEGATIVE); COCAINE METABOLITE URINE REFLE NEGATIVE (NEGATIVE); OPIATES URINE REFLEX NEGATIVE (NEGATIVE); PHENCYCLIDINE URINE REFLEX NEGATIVE (NEGATIVE)
[2020-04-14 17:43] LABS: METHADONE URINE REFLEX PENDING CONFIRMATION (NEGATIVE)
[2020-04-14] MEDS: NS 1,000 ML IV SCH (18:19)
[2020-04-14] MEDS ORDERED: PILL CUTTER 1 EACH XX PRN (18:45)
[2020-04-14] MEDS ORDERED: AZITHROMYCIN INJ 500 MG, VIAL MATE ADAPTER 1 EACH in D5W 250 ML IV SCH (22:00)
[2020-04-14] MEDS: cefTRIAXone SOD 1 GM in D5W MINI-BAG PLUS 50 ML IV SCH (23:46)
[2020-04-15] VITALS: BP 109/59
[2020-04-15 04:00] VITALS: BP 121/76
[2020-04-15] MEDS: NS 1,000 ML IV SCH (04:00)
[2020-04-15] MEDS: LEVOTHYROXINE 50MCG TABLET (0.05MG) PO SCH (05:26)
[2020-04-15 06:05] LABS: HEMOGLOBIN 9.7 g/dl (13.5-17.5); MEAN CORPUSCULAR HEMOGLOBIN 30.9 pg (27.0-33.0); MEAN CORPUSCULAR HGB CONC 30.3 g/dl (32.0-36.5); MEAN CORPUSCULAR VOLUME 101.9 fl (80.0-96.0); PLATELET COUNT, AUTOMATED 233 10^3/uL (150-450); RED BLOOD COUNT 3.14 10^6/uL (4.30-6.10); WHITE BLOOD COUNT 6.8 10^3/uL (4.0-10.0)
[2020-04-15 06:42] LABS: ALBUMIN 2.3 GM/DL (3.2-5.2); ALT/SGPT 23 U/L (12-78); BILIRUBIN,TOTAL 0.4 MG/DL (0.2-1.0); BLOOD UREA NITROGEN 24 MG/DL (7-18); CALCIUM LEVEL 8.4 MG/DL (8.5-10.1); CARBON DIOXIDE LEVEL 29 MEQ/L (21-32); CHLORIDE LEVEL 111 MEQ/L (98-107); CPK CREATINE PHOSPHOKINASE 109 U/L (39-308); GLOMERULAR FILTRATION RATE > 60.0 (>56); GLUCOSE, FASTING 83 MG/DL (70-100); MAGNESIUM LEVEL 2.3 MG/DL (1.8-2.4); PHOSPHORUS LEVEL 2.8 MG/DL (2.5-4.9); POTASSIUM SERUM 4.6 MEQ/L (3.5-5.1); SODIUM LEVEL 143 MEQ/L (136-145); TOTAL PROTEIN 5.9 GM/DL (6.4-8.2)
[2020-04-15 07:45] VITALS: BP 122/77
[2020-04-15] MEDS ORDERED: FLUBLOK(EGG FREE)(QUAD)INFLUENZA VACC 0.5ML SYRINGE 18YRS & OLDER IM ONE (09:00)
[2020-04-15] MEDS ORDERED: predniSONE 20 MG TAB PO SCH (09:00)
--- NOTE | 2020-04-15 09:12 | IPNPDOC ---
Date Seen The patient was seen on 04/15/20. Progress Note SUBJECTIVE: The patient was seen and examined at the bedside this morning. He reports that his chest does feel "tight" and he is wheezing but he feels much better than when he came in. He denies any chest pain, nor any abdominal pain, n/v/d. OBJECTIVE PHYSICAL EXAMINATION: VITAL SIGNS: see below GENERAL: alert and oriented, in no apparent distress, pleasant and conversant in full sentences. HEENT: PERRL, EOMI, Oral mucous membranes are moist without lesions. NECK: The patient has no noted JVD. No adenopathy is appreciated. No thyromegaly CHEST/LUNGS: There is diffuse wheezing in all lung edward bilaterally. There is no subcutaneous air appreciated. There is no tenderness to the chest wall. HEART:Regular rate and rhythm. No murmurs, rubs, or gallops are appreciated. Distal pulses are 2+. No carotid bruits appreciated. ABDOMEN: Soft, nontender, and nondistended. Bowel sounds are positive. No organomegaly is appreciated. No masses are appreciated. There are no peritoneal signs. There is no [place] sign. EXTREMITIES: No peripheral edema. There is no focal long bone tenderness or deformity. SKIN: The patients skin is warm and dry, without rashes or lesions. PSYCHIATRIC: AAO x 3, normal mood/affect NEUROLOGIC: The patient has 5/5 strength to the upper and lower extremities bilaterally. Sensation is intact throughout. Deep tendon reflexes are 2+ in all four extremities. There are no deficits to the cranial nerves. LABORATORY DATA, IMAGING STUDIES, MICROBIOLOGY: Please see below. RENAL US: FINDINGS: The bilateral kidneys are normal in contour, size, echogenicity, and reniform shape without hydronephrosis, nephrolithiasis, cystic or renal mass lesion. Right kidney measures 10.6 x 5.4 x 4.5 cm. Left kidney measures 10.4 x 4.3 x 4.6 cm. Bladder is grossly unremarkable. Incidental findings include cholelithiasis and small right pleural effusion. IMPRESSION: 1. Normal appearance of bilateral kidneys 2. Cholelithiasis 3. Small right pleural effusion LIVER US: FINDINGS: There is a gallstone in the gallbladder. It measures about 1.5 cm in diameter. There is no gallbladder wall thickening.. There is no intrahepatic or extrahepatic biliary dilatation, common bile duct measures 4 mm in maximum diameter. The liver demonstrates homogeneous echotexture with no gross mass. Pancreas is not well visualized due to overlying bowel gas. The right kidney demonstrates no hydronephrosis, with a normal size of 10.6 cm in length. No free fluid is seen. IMPRESSION: There is a gallstone in the gallbladder. There is no gallbladder wall thickening, pericholecystic fluid or biliary dilatation. CHEST CT: FINDINGS: Diffuse bilateral alveolar infiltrates are appreciated throughout the bilateral lung edward with associated mediastinal and hilar adenopathy as well as small pleural effusions. Left axillary adenopathy with inflammatory stranding is also noted. No pneumothorax. Atherosclerotic changes to the thoracic aorta and coronary arteries noted without aortic aneurysm or cardiomegaly/pericardial effusion. Limited upper abdomen cannot exclude subtle mesenteric stranding in the right upper quadrant and possible small reactive lymph nodes in the right upper quadrant/celiac axis distribution. Cholelithiasis also identified. IMPRESSION: 1. Diffuse significant bilateral alveolar infiltrates compatible with multifocal pneumonia including small pleural effusions and reactive adenopathy. 2. Adenopathy and fat stranding in the left axillary region is also appreciated and warrants investigation. 3. Cholelithiasis with possible subtle inflammatory stranding and reactive lymph nodes in the right upper quadrant/celiac axis distribution warranting further investigation. Echocardiogram: Pending official read. I did speak with Dr. Guzman yesterday morning who, on quick read, notes that left atrial size was borderline enlarged, ejection fraction was essentially normal, left atrial pressure is around 10, no noted wall motion abnormality, and the patient has a mild pulmonary hypertension. CVP was normal DVT prophylaxis ordered?: KATTY/SCDs ASSESSMENT AND PLAN: This is a 54-year-old male with history of multiple CVAs, hypertension, hyperlipidemia and opioid use disorder who presented with shortness of breath, productive cough and congestion concerning for pneumonia found to have elevated troponins without EKG changes that is concerning for type II [place]. His troponins have since trended down but he is still wheezing on exam and requiring 4L oxygen. PROBLEMS: 1. Elevated troponin: Concern for type II TX versus demand ischemia versus viral myocarditis -Troponin trend: 0.89 - 2.10 - 2.08 - 2.03 - 1.54 -EKG shows sinus rhythm with no ST changes -Patient denies any chest pain or shortness of breath -Case discussed with cardiology (Thomas) who looked at the patient's echo and notes no abnormalities other than some mild coronary hypertension. He suggested the elevated troponin is most likely from demand ischemia versus viral myocarditis. Consult placed. Appreciate recommendations -BNP elevated at 4274. No signs of hypervolemia. Will consider rechecking this tomorrow 2. Presumed community-acquired pneumonia: -Azithromycin changed to doxycycline due to prolonged QTC, measured at 476 -Continue course of doxycycline and ceftriaxone -CT demonstrates diffuse significant bilateral alveolar infiltrates compatible with multifocal pneumonia -Pro calcitonin elevated at 53.16 -CRP elevated at 20.7 -IV fluids stopped for now -Prednisone 40mg daily started and inhaled therapy 3. Cholelithiasis finding on US/CT: -Incidental finding on chest CT and renal ultrasound: Cholelithiasis with possible subtle inflammatory stranding and reactive lymph nodes in the right upper quadrant/celiac axis -Liver ultrasound shows gallstones but no gallbladder wall thickening, pericholecystic fluid or biliary dilatation. -Liver function studies have been normal and patient denies any abdominal pain 4. Acute kidney injury: Resolved. Creatinine trended down to 0.80 -Likely prerenal. Will continue to trend -Holding all nephrotoxic medications 5. History of Hypertension: -Blood pressures have been stable 6. ?paroxysmal AF: -Patient currently sees Dr. Fabian and has loop recorder in -Continue Eliquis 7. History of multiple strokes: -Continue Crestor 8. Mood disorder: -Continue home Zoloft and Atarax 9. Hypothyroidism: -Continue levothyroxine 50 g daily 10. BPH: -Patient is not having any urinary issues. Continue Flomax 11. Methadone dependence: -Continue home methadone; Dose clarified with [facility] as 138mg daily, formulary only carries 135mg DISPOSITION: Pending clinical improvement VS, I&O, [facility] Vital Signs/I&O Vital Signs Date Time Temp Pulse Resp B/P (MAP) Pulse Ox O2 Delivery O2 Flow Rate FiO2 04/15/20 07:45 97.0 65 16 122/77 (92) 95 Nasal Cannula 4.0 I&O- Last 24 Hours up to 6 AM 04/15/20 06:00 Intake Total 2485 ml Output Total 1435 ml Balance 1050 ml Laboratory Data 24H LABS Laboratory Tests 2 04/14/20 10:56: Coronavirus (COVID-19)(PCR) NEGATIVE 04/14/20 13:15: Bedside Glucose (Misc Panel) 61L 04/14/20 13:45: Troponin I 1.54#*H 04/14/20 14:28: Bedside Glucose (Misc Panel) 66L 04/14/20 16:33: Urine Random Creatinine 125.0, Urine Random Total Protein 57.4H, Urine Random Sodium 97, Urine Random Potassium 17.8, Urine Opiates Screen NEGATIVE, Urine Methadone Screen PENDING CONFIRMATIONH, Urine Barbiturates Screen NEGATIVE, Urine Phencyclidine Screen NEGATIVE, Urine Amphetamines Screen NEGATIVE, Urine Benzodiazepines Screen PENDING CONFIRMATIONH, Urine Cocaine Metabolite Screen NEGATIVE, Urine Cannabinoids Screen NEGATIVE 04/14/20 17:18: Bedside Glucose (Misc Panel) 98 04/14/20 19:59: Bedside Glucose (Misc Panel) 67L 04/14/20 23:55: Bedside Glucose (Misc Panel) 110H 04/15/20 03:27: Bedside Glucose (Misc Panel) 71 04/15/20 05:41: Nucleated Red Blood Cells % (auto) 0.4H, Anion Gap 3L, Glomerular Filtration Rate > 60.0, Calcium Level 8.4L, Phosphorus Level 2.8#, Magnesium Level 2.3, Total Bilirubin 0.4, Aspartate Amino Transf (AST/SGOT) 38H, Alanine Aminotransferase (ALT/SGPT) 23, Alkaline Phosphatase 101, Total Creatine Kinase 109, Total Protein 5.9L, Albumin 2.3L, Albumin/Globulin Ratio 0.6 CBC/BMP Laboratory Tests 04/15/20 05:41 Microbiology Microbiology 04/13/20 Respiratory Virus Panel (PCR) (JILL) - Final, Complete 04/13/20 Blood Culture - Preliminary, Resulted No growth after 24 hours . All specim... 04/13/20 Blood Culture - Preliminary, Resulted No growth after 24 hours . All specim... GME ATTESTATION GME ATTESTATION My faculty preceptor for this patient encounter was physically present during the encounter and was fully available. All aspects of the patient interview, examination, medical decision making process, and medical care plan development were reviewed and approved by the faculty preceptor. The faculty preceptor is aware and concurs with the plan as stated in the body of this note and will attest to such by his/her cosignature. ATTENDING NOTE I, Hetal Montero, have independently examined this patient and performed my own physical exam, as well as reviewed the documentation and edited where necessary. I have discussed in detail with the resident / student the findings and plan of treatment as documented by the resident / student and edited their note. I agree with their findings and treatment plan and have edited their documentation. I will continue to follow the patient during this hospital stay. DELVIN MARTINEZ MD Apr 15, 2020 09:12 HETAL MONTERO MD Apr 15, 2020 18:50
[2020-04-15] MEDS: ROSUVASTATIN 10 MG TAB (CRESTOR) PO SCH (09:34)
[2020-04-15] MEDS: APIXABAN 5 MG TAB (ELIQUIS) PO SCH ×2 (09:34→20:19)
[2020-04-15] MEDS: SERTRALINE 100 MG TAB PO SCH ×2 (09:34→20:19)
[2020-04-15] MEDS: DOXYCYCLINE HYCLATE 100MG TABLET PO SCH ×2 (09:34→20:19)
[2020-04-15] MEDS: GABAPENTIN 300 MG CAP PO SCH ×3 (09:35→20:18)
[2020-04-15] MEDS: METHADONE 10 MG TAB (S0109) PO SCH (09:45)
[2020-04-15] MEDS ORDERED: SLF 3 ML SYR IV PRN (11:45)
[2020-04-15 12:00] VITALS: BP 131/79
[2020-04-15] MEDS ORDERED: LIDOCAINE VISCOUS 2% SOLN 15ML UDC SSP PRN (12:00)
[2020-04-15] MEDS: IPRATROPIUM 0.5MG/ALBUTEROL 2.5MG INH SOL UD 3ML (DUONEB) INH SCH ×4 (12:48→23:51)
[2020-04-15] MEDS: SLF 3 ML SYR IV SCH ×2 (13:06→20:20)
[2020-04-15 16:00] VITALS: BP 132/92
[2020-04-15 20:00] VITALS: BP 130/75
[2020-04-15] MEDS: TAMSULOSIN 0.4 MG CAP PO SCH (20:19)
[2020-04-15] MEDS: cefTRIAXone SOD 1 GM in D5W MINI-BAG PLUS 50 ML IV SCH (23:00)
[2020-04-16] VITALS: BP 118/63
[2020-04-16] MEDS: IPRATROPIUM 0.5MG/ALBUTEROL 2.5MG INH SOL UD 3ML (DUONEB) INH SCH ×6 (03:58→23:48)
[2020-04-16 04:00] VITALS: BP 126/78
[2020-04-16 05:45] LABS: HEMATOCRIT 30.3 % (42.0-52.0); HEMOGLOBIN 9.7 g/dl (13.5-17.5); MEAN CORPUSCULAR HEMOGLOBIN 31.8 pg (27.0-33.0); MEAN CORPUSCULAR VOLUME 99.3 fl (80.0-96.0); PLATELET COUNT, AUTOMATED 225 10^3/uL (150-450); RED BLOOD COUNT 3.05 10^6/uL (4.30-6.10); WHITE BLOOD COUNT 6.7 10^3/uL (4.0-10.0)
[2020-04-16] MEDS: LEVOTHYROXINE 50MCG TABLET (0.05MG) PO SCH (05:54)
[2020-04-16] MEDS: SLF 3 ML SYR IV SCH ×3 (05:55→21:49)
[2020-04-16 06:04] LABS: ALBUMIN 2.3 GM/DL (3.2-5.2); ALT/SGPT 20 U/L (12-78); BILIRUBIN,TOTAL 0.3 MG/DL (0.2-1.0); BLOOD UREA NITROGEN 18 MG/DL (7-18); CALCIUM LEVEL 8.5 MG/DL (8.5-10.1); CARBON DIOXIDE LEVEL 30 MEQ/L (21-32); CHLORIDE LEVEL 108 MEQ/L (98-107); CPK CREATINE PHOSPHOKINASE 69 U/L (39-308); CREATININE FOR GFR 0.64 MG/DL (0.70-1.30); GLOMERULAR FILTRATION RATE > 60.0 (>56); GLUCOSE, FASTING 71 MG/DL (70-100); PHOSPHORUS LEVEL 2.7 MG/DL (2.5-4.9); POTASSIUM SERUM 4.3 MEQ/L (3.5-5.1); SODIUM LEVEL 141 MEQ/L (136-145); TOTAL PROTEIN 5.9 GM/DL (6.4-8.2)
[2020-04-16 08:00] VITALS: BP 141/72
[2020-04-16] MEDS: DOXYCYCLINE HYCLATE 100MG TABLET PO SCH ×2 (09:19→20:43)
[2020-04-16] MEDS: APIXABAN 5 MG TAB (ELIQUIS) PO SCH ×2 (09:19→20:43)
[2020-04-16] MEDS: ROSUVASTATIN 10 MG TAB (CRESTOR) PO SCH (09:19)
[2020-04-16] MEDS: GABAPENTIN 300 MG CAP PO SCH ×3 (09:19→20:42)
[2020-04-16] MEDS: SERTRALINE 100 MG TAB PO SCH ×2 (09:19→20:43)
[2020-04-16] MEDS: methylPREDNISolone 40MG 1ML VIAL IV SCH ×2 (09:20→16:18)
[2020-04-16] MEDS: METHADONE 10 MG TAB (S0109) PO SCH (09:20)
--- NOTE | 2020-04-16 10:35 | IPNPDOC ---
Date Seen The patient was seen on 04/16/20. Progress Note SUBJECTIVE: The patient was seen and examined at the bedside this morning. He would like to go home. He denies any shortness of breath or cough. He states he feels well. He is eating/drinking well and denies any chest pain/abdominal pain/n/v/d. OBJECTIVE PHYSICAL EXAMINATION: VITAL SIGNS: see below GENERAL: alert and oriented, in no apparent distress, pleasant and conversant in full sentences. HEENT: PERRL, EOMI, Oral mucous membranes are moist without lesions. NECK: The patient has no noted JVD. No adenopathy is appreciated. No thyromegaly CHEST/LUNGS: There is diffuse wheezing in all lung edward bilaterally. There is no subcutaneous air appreciated. There is no tenderness to the chest wall. HEART:Regular rate and rhythm. No murmurs, rubs, or gallops are appreciated. Distal pulses are 2+. No carotid bruits appreciated. ABDOMEN: Soft, nontender, and nondistended. Bowel sounds are positive. No organomegaly is appreciated. No masses are appreciated. There are no peritoneal signs. There is no [place] sign. EXTREMITIES: No peripheral edema. There is no focal long bone tenderness or deformity. SKIN: The patients skin is warm and dry, without rashes or lesions. PSYCHIATRIC: AAO x 3, normal mood/affect NEUROLOGIC: The patient has 5/5 strength to the upper and lower extremities bilaterally. Sensation is intact throughout. Deep tendon reflexes are 2+ in all four extremities. There are no deficits to the cranial nerves. LABORATORY DATA, IMAGING STUDIES, MICROBIOLOGY: Please see below. Echocardiogram: Pending official read. I did speak with Dr. Guzman who, on quick read, notes that left atrial size was borderline enlarged, ejection fraction was essentially normal, left atrial pressure is around 10, no noted wall motion abnormality, and the patient has a mild pulmonary hypertension. CVP was normal DVT prophylaxis ordered?: KATTY/SCDs ASSESSMENT AND PLAN: This is a 54-year-old male with history of multiple CVAs, hypertension, hyperlipidemia and opioid use disorder who presented with shortness of breath, productive cough and congestion concerning for pneumonia found to have elevated troponins without EKG changes that is concerning for type II [place]. His troponins have since trended down but he is still wheezing on exam and requiring 4L oxygen. PROBLEMS: Multifocal pneumona - possibly 2/2 presumed community-acquired pneumonia, possibly 2/2 viral pneumonia -Azithromycin changed to doxycycline due to prolonged QTC, measured at 476 -Continue course of doxycycline and ceftriaxone (Day 3) -CT demonstrates diffuse significant bilateral alveolar infiltrates compatible with multifocal pneumonia -Pro calcitonin elevated at 53.16 -CRP elevated at 20.7 -IV fluids stopped -Prednisone changed to 40mg Solumedrol Q8H Elevated troponin: Concern for type II [place] versus demand ischemia versus viral myocarditis -Troponin trend: 0.89 - 2.10 - 2.08 - 2.03 - 1.54 -EKG shows sinus rhythm with no ST changes -Patient denies any chest pain or shortness of breath -Case discussed with cardiology (Thomas) who looked at the patient's echo and notes no abnormalities other than some mild coronary hypertension. He suggested the elevated troponin is most likely from demand ischemia versus viral myocarditis. Consult placed. Appreciate recommendations 3. Cholelithiasis finding on US/CT: -Incidental finding on chest CT and renal ultrasound: Cholelithiasis with possible subtle inflammatory stranding and reactive lymph nodes in the right upper quadrant/celiac axis -Liver ultrasound shows gallstones but no gallbladder wall thickening, pericholecystic fluid or biliary dilatation. -Liver function studies have been normal and patient denies any abdominal pain 4. Acute kidney injury: Resolved. Creatinine trended down to 0.64 -Likely prerenal. Will continue to trend -Holding all nephrotoxic medications 5. History of Hypertension: -Blood pressures have been stable 6. ?paroxysmal AF: - Suspected given his history of prior strokes -Patient currently sees Dr. Fabian and has loop recorder in -Continue Eliquis 7. History of multiple strokes: -Continue Crestor 8. Mood disorder: -Continue home Zoloft and Atarax 9. Hypothyroidism: -Continue levothyroxine 50 g daily 10. BPH: -Patient is not having any urinary issues. Continue Flomax 11. Methadone dependence: -Continue home methadone; Dose clarified with [facility] as 138mg daily, formulary only carries 135mg DISPOSITION: Pending clinical improvement VS, I&O, 24H, Fishbone Vital Signs/I&O Vital Signs Date Time Temp Pulse Resp B/P (MAP) Pulse Ox O2 Delivery O2 Flow Rate FiO2 04/16/20 08:00 5.0 04/16/20 08:00 97.8 62 20 141/72 (95) 90 Nasal Cannula I&O- Last 24 Hours up to 6 AM 04/16/20 06:00 Intake Total 1020 ml Output Total 1050 ml Balance -30 ml Laboratory Data 24H LABS Laboratory Tests 2 04/15/20 11:28: Bedside Glucose (Misc Panel) 76 04/15/20 13:54: Bedside Glucose (Misc Panel) 115H 04/15/20 16:09: Bedside Glucose (Misc Panel) 114H 04/15/20 21:05: Bedside Glucose (Misc Panel) 133H 04/16/20 00:22: Bedside Glucose (Misc Panel) 91 04/16/20 05:12: Nucleated Red Blood Cells % (auto) 0.0, Anion Gap 3L, Glomerular Filtration Rate > 60.0, Calcium Level 8.5, Phosphorus Level 2.7, Magnesium Level 2.0, Total Bilirubin 0.3, Aspartate Amino Transf (AST/SGOT) 33, Alanine Aminotransferase (ALT/SGPT) 20, Alkaline Phosphatase 96, Total Creatine Kinase 69, Total Protein 5.9L, Albumin 2.3L, Albumin/Globulin Ratio 0.6 04/16/20 05:58: Bedside Glucose (Misc Panel) 71 04/16/20 08:59: Bedside Glucose (Misc Panel) 79 CBC/BMP Laboratory Tests 04/16/20 05:12 Microbiology Microbiology 04/13/20 Respiratory Virus Panel (PCR) (JILL) - Final, Complete 04/13/20 Blood Culture - Preliminary, Resulted No Growth after 48 hours. All Specime... 04/13/20 Blood Culture - Preliminary, Resulted No Growth after 48 hours. All Specime... GME ATTESTATION GME ATTESTATION My faculty preceptor for this patient encounter was physically present during the encounter and was fully available. All aspects of the patient interview, examination, medical decision making process, and medical care plan development were reviewed and approved by the faculty preceptor. The faculty preceptor is aware and concurs with the plan as stated in the body of this note and will attest to such by his/her cosignature. ATTENDING NOTE I, Hetal Montero, have independently examined this patient and performed my own physical exam, as well as reviewed the documentation and edited where necessary. I have discussed in detail with the resident / student the findings and plan of treatment as documented by the resident / student and edited their note. I agree with their findings and treatment plan and have edited their documentation. I will continue to follow the patient during this hospital stay. DELVIN MARTINEZ MD Apr 16, 2020 10:35 HETAL MONTERO MD Apr 16, 2020 14:06
[2020-04-16] MEDS: LIDOCAINE VISCOUS 2% SOLN 15ML UDC SSP SCH ×4 (12:10→21:49)
--- NOTE | 2020-04-16 14:04 | ECGEPIP ---
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 No remarkable changes. Electronically Signed on 04-16-2020 14:04:41 EST by Yayo Weston
[2020-04-16 16:00] VITALS: BP 144/90
[2020-04-16 20:00] VITALS: BP 152/71
[2020-04-16] MEDS: TAMSULOSIN 0.4 MG CAP PO SCH (20:43)
[2020-04-16 22:00] VITALS: BP 127/78; O2SAT 92
[2020-04-16] MEDS: cefTRIAXone SOD 1 GM in D5W MINI-BAG PLUS 50 ML IV SCH (22:06)
[2020-04-17] MEDS: methylPREDNISolone 40MG 1ML VIAL IV SCH ×2 (01:12→08:37)
[2020-04-17] MEDS: LIDOCAINE VISCOUS 2% SOLN 15ML UDC SSP SCH ×2 (01:12→05:40)
[2020-04-17] MEDS: IPRATROPIUM 0.5MG/ALBUTEROL 2.5MG INH SOL UD 3ML (DUONEB) INH SCH ×2 (03:38→07:18)
[2020-04-17] MEDS: LEVOTHYROXINE 50MCG TABLET (0.05MG) PO SCH (05:39)
[2020-04-17] MEDS: SLF 3 ML SYR IV SCH (05:40)
[2020-04-17 06:00] VITALS: BP 127/56
[2020-04-17 06:36] LABS: BASO % 0.1 % (0.0-1.0); HEMATOCRIT 30.3 % (42.0-52.0); HEMOGLOBIN 9.9 g/dl (13.5-17.5); LYMPH # 0.7 10^3/uL (1.5-5.0); LYMPH % 9.3 % (24.0-44.0); MEAN CORPUSCULAR HEMOGLOBIN 31.8 pg (27.0-33.0); MEAN CORPUSCULAR HGB CONC 32.7 g/dl (32.0-36.5); MEAN CORPUSCULAR VOLUME 97.4 fl (80.0-96.0); MONO # 0.3 10^3/uL (0.0-0.8); MONO % 4.4 % (0.0-5.0); NEUTROPHILS # 6.2 10^3/uL (1.5-8.5); NEUTROPHILS % 84.7 % (36.0-66.0); PLATELET COUNT, AUTOMATED 247 10^3/uL (150-450); RED BLOOD COUNT 3.11 10^6/uL (4.30-6.10); WHITE BLOOD COUNT 7.4 10^3/uL (4.0-10.0)
[2020-04-17 07:34] LABS: BLOOD UREA NITROGEN 15 MG/DL (7-18); C REACTIVE PROTEIN QUANTITATIV 6.98 MG/DL (0.00-0.30); CALCIUM LEVEL 8.7 MG/DL (8.5-10.1); CARBON DIOXIDE LEVEL 30 MEQ/L (21-32); CHLORIDE LEVEL 103 MEQ/L (98-107); CPK CREATINE PHOSPHOKINASE 70 U/L (39-308); CREATININE FOR GFR 0.64 MG/DL (0.70-1.30); GLOMERULAR FILTRATION RATE > 60.0 (>56); GLUCOSE, FASTING 102 MG/DL (70-100); POTASSIUM SERUM 4.3 MEQ/L (3.5-5.1); SODIUM LEVEL 137 MEQ/L (136-145)
[2020-04-17] MEDS: SERTRALINE 100 MG TAB PO SCH (08:37)
[2020-04-17] MEDS: ROSUVASTATIN 10 MG TAB (CRESTOR) PO SCH (08:37)
[2020-04-17] MEDS: GABAPENTIN 300 MG CAP PO SCH (08:37)
[2020-04-17] MEDS: APIXABAN 5 MG TAB (ELIQUIS) PO SCH (08:38)
[2020-04-17] MEDS: DOXYCYCLINE HYCLATE 100MG TABLET PO SCH (08:38)
[2020-04-17] MEDS: METHADONE 10 MG TAB (S0109) PO SCH (08:38)
[2020-04-17] MEDS ORDERED: DOXY100T PO (09:12)
[2020-04-17] MEDS ORDERED: MAGICMW SS (09:12)
[2020-04-17] MEDS ORDERED: PRED10TA2 PO (09:12)
[2020-04-17] MEDS ORDERED: CEFD1CAP8 PO (09:12)
--- NOTE | 2020-04-17 11:07 | DS.PDOC ---
Discharge Summary General Date of Admission Apr 13, 2020 at 22:20 Date of Discharge 04/17/2020 Discharge Summary PROCEDURES PERFORMED DURING STAY: [None]. ADMITTING DIAGNOSES / DISCHARGE DIAGNOSES: Multifocal pneumonia - possibly 2/2 presumed community-acquired pneumonia, possibly 2/2 viral pneumonia s/p Elevated troponin - likely 2/2 demand ischemia / viral Tooth decay Cholelithiasis finding on US/CT: s/p Acute kidney injury HTN Suspected paroxysmal AF: Hx of Multiple CVAs Mood disorder Hypothyroidism: BPH Methadone dependence: DVT prophylaxis COMPLICATIONS/CHIEF COMPLAINT: Dyspnea. HISTORY OF PRESENT ILLNESS: Patient is a 54 year old male with a PMHx of Multiple CVAs, HTN, DLP and Opioid use disorder (on Methadone) who presented with SOB associated with a productive cough and congestion concerning for pneumonia. He was found to have elevated troponins without EKG changes. Patient was admitted to the hospital service for further evaluation and treatment. HOSPITAL COURSE: Multifocal pneumonia - possibly 2/2 presumed community-acquired pneumonia, possibly 2/2 viral pneumonia - Currently patient's breathing is doing better - Has been able to be off oxygen and on room air alone while sitting up in bed - Has been ambulating; patient is not in any distress during ambulation / no SOB; however saturations drop to 86; will provide home oxygen with ambulation on discharge - PCT elevated - Will adjust corticosteroids to Prednisone PO; will DC Solumedrol - c/w Doxycycline / Cefdinir on discharge; will DC Ceftriaxone -will complete antibiotic course as outpatient - c/w Inhaled therapy as ordered s/p Elevated troponin - likely 2/2 demand ischemia / viral - Denies any CP, has been ambulating without difficulty - EKG without any ischemic changes - Troponins have trended down - Case discussed with Cardiology (Dr. Guzman) who looked at the patient's echo and notes no abnormalities other than some mild pulmonary hypertension - Will have outpatient follow up with Cardiology Tooth decay - Patient was scheduled to receive a resection of his left upper molar - Will have outpatient follow-up with his oral surgeon for rescheduling of his appointment - c/w Viscous lidocaine PRN Cholelithiasis finding on US/CT: - Incidental finding on chest CT and renal ultrasound: Cholelithiasis with possible subtle inflammatory stranding and reactive lymph nodes in the right upper quadrant/celiac axis - Liver ultrasound shows gallstones but no gallbladder wall thickening, peric holecystic fluid or biliary dilatation. - Liver function studies have been normal and patient denies any abdominal pain - Will have outpatient follow up with PCP s/p Acute kidney injury - Will avoid nephrotoxic medications - s/p IV fluids HTN - BP well controlled - Currently not on medications Suspected paroxysmal AF: - Suspected given his history of prior strokes - Patient currently sees Dr. Fabian and has loop recorder in - c/w Eliquis Hx of Multiple CVAs - Suspected embolic etiology? - c/w Atorvastatin / Eliquis Mood disorder - c/w Sertraline / Hydroxyzine Hypothyroidism: - c/w Levothyroxine BPH - c/w Flomax Methadone dependence: - c/w Methadone; confirmed with outpatient facility DVT prophylaxis - c/w full anticoagulation with Eliquis DISCHARGE MEDICATIONS: Please see below. ALLERGIES: Please see below. PHYSICAL EXAMINATION ON DISCHARGE: Vitals (See below) General: Sitting up in bed, appears comfortable and having a full conversation, AAOx3 HEENT: NC, AT CVS: RRR, +S1S2 Lungs: Fair air entry b/l, auscultation does not reveal any significant wheezing this morning. There is no rhonchi or crackles Abdomen: Soft, ND, NT Extremities: No evidence of edema, - Calf tenderness LABORATORY DATA: Please see below. ACTIVITY: [As tolerated]. DISCHARGE PLAN: Follow-up with primary care provider, cardiology, and oral surgery within the next 7 days Remain compliant with treatment plan and medications Return to the ER if you experience any problems DISPOSITION: Home DISCHARGE CONDITION: [Stable]. TIME SPENT ON DISCHARGE: 35 minutes. Vital Signs/I&Os Vital Signs Date Time Temp Pulse Resp B/P (MAP) Pulse Ox O2 Delivery O2 Flow Rate FiO2 04/17/20 08:40 0.0 04/17/20 06:00 97.8 82 18 127/56 (79) 94 Room Air I&O- Last 24 Hours up to 6 AM 04/17/20 06:00 Intake Total 600 ml Output Total 1825 ml Balance -1225 ml Laboratory Data Labs 24H Laboratory Tests 2 04/16/20 11:49: Bedside Glucose (Misc Panel) 87 04/17/20 06:03: Immature Granulocyte % (Auto) 1.5, Neutrophils (%) (Auto) 84.7H, Lymphocytes (%) (Auto) 9.3L, Monocytes (%) (Auto) 4.4, Eosinophils (%) (Auto) 0.0, Basophils (%) (Auto) 0.1, Neutrophils # (Auto) 6.2, Lymphocytes # (Auto) 0.7L, Monocytes # (Auto) 0.3, Eosinophils # (Auto) 0.0, Basophils # (Auto) 0.0, Nucleated Red Blood Cells % (auto) 0.0, Anion Gap 4L, Glomerular Filtration Rate > 60.0, Calcium Level 8.7, Magnesium Level 2.0, Total Creatine Kinase 70, C-Reactive Protein, Quantitative 6.98H CBC/BMP Laboratory Tests 04/17/20 06:03 FSBS Laboratory Tests Test 04/16/20 11:49 Range/Units Bedside Glucose (Misc Panel) 87 70-105 MG/DL Microbiology Microbiology 04/13/20 Respiratory Virus Panel (PCR) (JILL) - Final, Complete 04/13/20 Blood Culture - Preliminary, Resulted No Growth after 72 hours. All specime... 04/13/20 Blood Culture - Preliminary, Resulted No Growth after 72 hours. All specime... Discharge Medications Scheduled Apixaban (Eliquis) 5 Mg Tablet, 5 MG PO BID, (Reported) Cefdinir (Cefdinir) 300 Mg Capsule, 300 MG PO BID Doxycycline Hyclate (Doxycycline Hyclate) 100 Mg Tablet, 100 MG PO BID Fluticasone Propion/Salmeterol (Airduo Respiclick 232-14 Mcg) 1 Each Aer.pow.ba, 1 PUFF INH BID, (Reported) HAS NOT STARTED YET Gabapentin (Gabapentin) 100 Mg Capsule, 100 MG PO TID, (Reported) TAKES WITH 800MG FOR 900MG TID Gabapentin (Gabapentin) 800 Mg Tablet, 800 MG PO TID, (Reported) TAKES WITH 100MG FOR 900MG TID Levothyroxine Sodium (Synthroid) 50 Mcg Tablet, 50 MCG PO DAILY, (Reported) Meloxicam (Meloxicam) 15 Mg Tablet, 15 MG PO DAILY, (Reported) Methadone HCl (Methadone HCl) 10 Mg/1 Ml Oral.conc, 138 MG PO DAILY, (Reported) Prednisone (Prednisone) 10 Mg Tablet, 10 MG PO TAPER Take 4 tabs daily x 3 days, then 3 tabs daily x 3 days, then 2 tabs daily x 3 days, then 1 tab daily x 3 days and stop Rosuvastatin Calcium (Rosuvastatin Calcium) 40 Mg Tablet, 40 MG PO DAILY, (Reported) Sertraline HCl (Sertraline HCl) 100 Mg Tablet, 100 MG PO BID, (Reported) Tamsulosin HCl (Flomax) 0.4 Mg Capsule, 0.4 MG PO QHS, (Reported) Scheduled PRN Albuterol Sulfate (Proair Hfa) 8.5 Gm Hfa.aer.ad, 2 PUFF INH Q8H PRN for WHEEZING, (Reported) Hydroxyzine Pamoate (Hydroxyzine Pamoate) 25 Mg Capsule, 25 MG PO Q8H PRN for ANXIETY, (Reported) Magic Mouthwash (First-Mouthwash Blm) 1 Ea Susp, 0 EA SS Q4HP PRN for DISCOMFORT Allergies Coded Allergies: No Known Allergies (Unverified , 09/03/18) BERKLEY NINO MD Apr 17, 2020 11:07
--- NOTE | 2020-04-18 14:56 | ECHO ---
DATE OF PROCEDURE: 04/14/2020 Age: 54 Gender: Male Height: 69 inches Weight: 189 pounds Body surface area: 2.02 m2 PATIENT LOCATION: Inpatient progressive care unit (PCU), Room 3224. REFERRING PHYSICIAN: Rubén Love DO INDICATION: Abnormal EKG. Pulmonary edema. MEASUREMENTS: 2D Measurements: RV - 4.0 cm LV 4.9 cm Septum 1.1 cm Posterior wall 1.1 cm Aortic Root 2.9 cm LA 4.0 cm LVEF 65-70% Doppler Measurements: AV 1.54 msec LVOT 1.46 msec LVOT diameter 2.0 cm MV-E 81, A 71, E/A ratio 1.1 Early mitral deceleration time 135 msec E prime medial 11.4, A prime medial 6.8, E prime lateral 14.1 Average E/E prime ratio 6.5/PCWP 9.9 mmHg PV 0.8 msec Pulmonary artery acceleration time 95 msec RVSP 40 mmHg IVC 1.5 cm COMMENTS: Normal sinus rhythm with subtle intraventricular conduction disturbance. M-mode and two-dimensional echocardiography was performed with pulse, continuous wave, color flow, and tissue Doppler studies. Normal left ventricular size, wall thickness, and wall motion. Borderline left atrial enlargement with currently normal left ventricular (LV) diastolic dysfunction and estimated mean left atrial pressure. Right heart chambers upper limits normal in size with normal right ventricular free wall motion and Doppler evidence of mild pulmonary hypertension. Normal inferior vena cava (IVC) size and collapse against an elevated central venous pressure. Normal aortic dimensions. Normal appearing valvular structures with very mild mitral and tricuspid insufficiency (physiological findings). No apparent intracardiac mass or pericardial effusion. This report was relayed directly to Yin Smith MD at 0910 am on 04/14/2020. THAO
[2020-04-19 07:08] LABS: Benzodiazepines Negative (Cutoff=300); GC Methadone 4625 ng/mL (Cutoff=100); Methadone Positive (.)
[2020-04-19 17:07] LABS: BODY FLUID CULTURE Not indicated. (.); LEGIONELLA ANTIGEN URINE Negative (Negative); ORGANISM ID Not indicated. (.); SPECIMEN SOURCE Urine (.); URINE STREP PNEUMONIAE ANTIGEN Negative (Negative)
== END 2020-04-17 10:08 | disposition home or self-care (01) | DRG 139 ==
LOC: M ED 19:16 → M ED INP 22:20 → ENRESERV 23:47 → M PCU 04-14 01:46 → M MSPAV 04-16 21:34
PROVIDERS: ADMIT Internal Medicine; ATTEND Internal Medicine
DX: J12.89 Other viral pneumonia (principal); N17.9 Acute kidney failure, unspecified; I24.8 Other forms of acute ischemic heart disease; I27.20 Pulmonary hypertension, unspecified; I48.0 Paroxysmal atrial fibrillation; I10 Essential (primary) hypertension; E78.5 Hyperlipidemia, unspecified; F11.21 Opioid dependence, in remission; F10.21 Alcohol dependence, in remission; K02.9 Dental caries, unspecified; F32.9 Major depressive disorder, single episode, unspecified; F41.1 Generalized anxiety disorder; N40.0 Benign prostatic hyperplasia without lower urinary tract symptoms; D53.9 Nutritional anemia, unspecified; J45.30 Mild persistent asthma, uncomplicated; E16.2 Hypoglycemia, unspecified; E03.9 Hypothyroidism, unspecified; Z86.73 Personal history of transient ischemic attack (TIA), and cerebral infarction without residual deficits; Z20.828 Contact with and (suspected) exposure to other viral communicable diseases; Z87.891 Personal history of nicotine dependence; Z79.01 Long term (current) use of anticoagulants; Z79.1 Long term (current) use of non-steroidal anti-inflammatories (NSAID); Z79.899 Other long term (current) drug therapy

== ENCOUNTER → 2020-04-13 | Outpatient (REF) | payer OTHER ==
[~2020-04-13] MED LIST changes: +AIRD1INH3 INH; +CEFD1CAP8 PO; +DOXY100T PO; +GABA-1171 PO; +HYDR1CAP25 PO; +MAGICMW SS; +MELO15TA28 PO; +METH10CO PO; +PATIENT COMMENT; +PRED10TA2 PO; +PROAAER10 INH; +SYNT50TA PO
== END ==
LOC: M SFHCPLAZ 16:53
PROVIDERS: ATTEND Physician Assistant Medical
DX: R49.0 Dysphonia (principal)

== ENCOUNTER → 2020-04-13 | Outpatient (REF) | payer OTHER ==
[2020-04-13 15:38] LABS: BASO % 0.3 % (0.0-1.0); EOS # 0.2 10^3/uL (0.0-0.5); EOS % 2.1 % (0.0-3.0); HEMOGLOBIN 11.2 g/dl (13.5-17.5); LYMPH # 1.1 10^3/uL (1.5-5.0); LYMPH % 10.5 % (24.0-44.0); MEAN CORPUSCULAR HEMOGLOBIN 31.5 pg (27.0-33.0); MEAN CORPUSCULAR VOLUME 98.3 fl (80.0-96.0); MONO # 0.3 10^3/uL (0.0-0.8); NEUTROPHILS # 8.8 10^3/uL (1.5-8.5); NEUTROPHILS % 83.6 % (36.0-66.0); PLATELET COUNT, AUTOMATED 258 10^3/uL (150-450); RED BLOOD COUNT 3.56 10^6/uL (4.30-6.10); WHITE BLOOD COUNT 10.5 10^3/uL (4.0-10.0)
[2020-04-13 15:59] LABS: ERYTHROCYTE SEDIMENTATION RATE 61 mm/hr (0-20)
[2020-04-13 16:05] LABS: ALBUMIN 2.7 GM/DL (3.2-5.2); BILIRUBIN,TOTAL 0.7 MG/DL (0.2-1.0); C REACTIVE PROTEIN QUANTITATIV 26.4 MG/DL (0.00-0.30); CALCIUM LEVEL 8.4 MG/DL (8.5-10.1); CREATININE FOR GFR 1.38 MG/DL (0.70-1.30); GLOMERULAR FILTRATION RATE 57.6 (>56); POTASSIUM SERUM 4.2 MEQ/L (3.5-5.1); TOTAL PROTEIN 5.8 GM/DL (6.4-8.2)
== END ==
LOC: M SFHCPLAZ 14:48
PROVIDERS: ATTEND Physician Assistant Medical
DX: R49.0 Dysphonia (principal); R60.0 Localized edema; J45.30 Mild persistent asthma, uncomplicated

== ENCOUNTER → 2020-04-13 | Outpatient (CLI) | payer OTHER ==
--- NOTE | 2020-04-13 15:49 | REPPI ---
INDICATION: R49.0 HOARSENESS. COMPARISON: 08/06/2018 the latest prior FINDINGS: Diffuse patchy airspace opacities are seen bilaterally. This is seen in conjunction with increased interstitial markings. The pleural angles remain sharp. The heart is not enlarged. The osseous structures stable and intact. IMPRESSION: Pulmonary edema either cardiogenic or infectious etiology. Correlate clinically. <Electronically signed by Wisam Loaiza > 04/13/20 [id number]
== END ==
LOC: M PLAIMG 15:19
PROVIDERS: ATTEND Physician Assistant Medical
DX: R49.0 Dysphonia (principal)

== ENCOUNTER → 2020-06-30 | Outpatient (REF) | payer OTHER ==
[~2020-06-30] MED LIST changes: +AIRD1INH3 INH; +CEFD1CAP8 PO; +DOXY100T PO; +GABA-1171 PO; +HYDR1CAP25 PO; -LISI-538 PO; -LISI-542 PO; +LISI-898 PO; +LISI10TA22 PO; -LISI10TA4 PO; +LISI20TA33 PO; +MAGICMW SS; +MELO15TA28 PO; +METH10CO PO; +PATIENT COMMENT; +PRED10TA2 PO; +PROAAER10 INH; +SYNT50TA PO
[2020-06-30 15:32] LABS: BASO % 0.4 % (0.0-1.0); EOS # 0.3 10^3/uL (0.0-0.5); EOS % 2.6 % (0.0-3.0); HEMATOCRIT 39.7 % (42.0-52.0); HEMOGLOBIN 12.9 g/dl (13.5-17.5); LYMPH # 1.9 10^3/uL (1.5-5.0); LYMPH % 18.9 % (24.0-44.0); MEAN CORPUSCULAR HGB CONC 32.5 g/dl (32.0-36.5); MEAN CORPUSCULAR VOLUME 95.4 fl (80.0-96.0); MONO # 0.7 10^3/uL (0.0-0.8); MONO % 6.6 % (0.0-5.0); NEUTROPHILS % 71.1 % (36.0-66.0); PLATELET COUNT, AUTOMATED 306 10^3/uL (150-450); RED BLOOD COUNT 4.16 10^6/uL (4.30-6.10); WHITE BLOOD COUNT 9.9 10^3/uL (4.0-10.0)
[2020-06-30 15:50] LABS: ERYTHROCYTE SEDIMENTATION RATE 32 mm/hr (0-20)
[2020-06-30 16:16] LABS: ALBUMIN 3.6 GM/DL (3.2-5.2); ALT/SGPT 22 U/L (12-78); BILIRUBIN,TOTAL 0.3 MG/DL (0.2-1.0); BLOOD UREA NITROGEN 16 MG/DL (7-18); C REACTIVE PROTEIN QUANTITATIV 1.09 MG/DL (0.00-0.30); CALCIUM LEVEL 9.5 MG/DL (8.5-10.1); CARBON DIOXIDE LEVEL 30 MEQ/L (21-32); CHLORIDE LEVEL 103 MEQ/L (98-107); CHOLESTEROL LEVEL 262 MG/DL (<200); CHOLESTEROL RISK RATIO 4.158 (<5); CREATININE FOR GFR 0.91 MG/DL (0.70-1.30); GLOMERULAR FILTRATION RATE > 60.0 (>56); GLUCOSE, FASTING 79 MG/DL (70-100); HDL CHOLESTEROL 63 MG/DL (>40); LDL CHOLESTEROL 160 MG/DL (<100); NON-HDL-C 199 MG/DL; NT-PRO BNP 1237 PG/ML (<125); POTASSIUM SERUM 3.8 MEQ/L (3.5-5.1); SODIUM LEVEL 139 MEQ/L (136-145); TOTAL PROTEIN 7.1 GM/DL (6.4-8.2); TRIGLYCERIDES LEVEL 194 MG/DL (<150)
== END ==
LOC: M SFHCPLAZ 13:35
PROVIDERS: ATTEND Physician Assistant Medical
DX: I10 Essential (primary) hypertension (principal); R77.8 Other specified abnormalities of plasma proteins; E78.2 Mixed hyperlipidemia; J18.9 Pneumonia, unspecified organism; I48.0 Paroxysmal atrial fibrillation

== ENCOUNTER 2020-08-24 17:36 | Inpatient (IN) | payer OTHER ==
[~2020-08-24] VITALS: Ht 175.3 cm; Wt 92.3 kg
--- NOTE | 2020-08-24 18:12 | REP ---
INDICATION: DYSPNEA/COUGH. COMPARISON: Portable chest dated 04/13/2020 and 08/06/2018. TECHNIQUE: Portable AP chest with the patient sitting FINDINGS: There is diffuse bilateral interstitial coarsening compatible with interstitial infiltrates. On the comparison study dated 04/13/2020 there were bilateral interstitial and alveolar infiltrates. No definite alveolar infiltrates are identified today. On the comparison study of 08/06/2018 there were no infiltrates. Cardiac size is upper normal for portable positioning. The myrtle, mediastinum, and skeletal structures are unremarkable. A loop recorder is incidentally identified. This is unchanged from 04/13/2020. IMPRESSION: Bilateral interstitial coarsening compatible with diffuse bilateral interstitial infiltrates as discussed in detail above. Loop recorder is incidentally identified. This is unchanged from 04/13/2020. <Electronically signed by Stan Torres > 08/24/20 1510
[2020-08-24 18:22] LABS: BASO % 0.2 % (0.0-1.0); EOS # 0.1 10^3/uL (0.0-0.5); EOS % 0.9 % (0.0-3.0); HEMATOCRIT 29.6 % (42.0-52.0); HEMOGLOBIN 9.8 g/dl (13.5-17.5); LYMPH # 0.6 10^3/uL (1.5-5.0); LYMPH % 4.8 % (24.0-44.0); MEAN CORPUSCULAR HEMOGLOBIN 30.9 pg (27.0-33.0); MEAN CORPUSCULAR HGB CONC 33.1 g/dl (32.0-36.5); MEAN CORPUSCULAR VOLUME 93.4 fl (80.0-96.0); MONO # 0.6 10^3/uL (0.0-0.8); MONO % 4.4 % (2.0-8.0); NEUTROPHILS % 88.7 % (36.0-66.0); PLATELET COUNT, AUTOMATED 193 10^3/uL (150-450); RED BLOOD COUNT 3.17 10^6/uL (4.30-6.10); WHITE BLOOD COUNT 12.4 10^3/uL (4.0-10.0)
[2020-08-24 18:52] LABS: ALBUMIN 2.9 GM/DL (3.2-5.2); ALT/SGPT 21 U/L (12-78); BILIRUBIN,DIRECT 0.4 MG/DL (0.0-0.2); BILIRUBIN,TOTAL 0.6 MG/DL (0.2-1.0); BLOOD UREA NITROGEN 27 MG/DL (7-18); CALCIUM LEVEL 8.2 MG/DL (8.5-10.1); CARBON DIOXIDE LEVEL 25 MEQ/L (21-32); CHLORIDE LEVEL 102 MEQ/L (98-107); CREATININE FOR GFR 1.22 MG/DL (0.70-1.30); GLOMERULAR FILTRATION RATE > 60.0 (>56); GLUCOSE, FASTING 107 MG/DL (70-100); POTASSIUM SERUM 3.3 MEQ/L (3.5-5.1); SODIUM LEVEL 136 MEQ/L (136-145); TOTAL PROTEIN 5.9 GM/DL (6.4-8.2)
[2020-08-24 19:21] LABS: INR 1.36; PROTHROMBIN TIME 17.1 SECONDS (12.5-14.3)
[2020-08-24 19:29] LABS: CK-MB VALUE MASS 4.4 NG/ML (<3.6); CPK CREATINE PHOSPHOKINASE 126 U/L (39-308); MB/CK RELATIVE INDEX 3.49 (< OR =4); NT-PRO BNP 13871 PG/ML (<125); TROPONIN I 0.21 NG/ML (< 0.10)
[2020-08-24] MEDS ORDERED: ISOVUE-370 76% 100ML VIAL As Ordered ONE (20:34)
--- NOTE | 2020-08-24 20:59 | ECGEPIP ---
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
--- NOTE | 2020-08-24 21:26 | REPVR ---
PROCEDURE INFORMATION: Exam: CT Angiography Chest With Contrast Exam date and time: 08/24/2020 8:54 PM Age: 55 years old Clinical indication: Shortness of breath TECHNIQUE: Imaging protocol: Computed tomographic angiography of the chest with contrast. 3D rendering (Not supervised by radiologist): MIP and/or 3D reconstructed images were created by the technologist. Radiation optimization: All CT scans at this facility use at least one of these dose optimization techniques: automated exposure control; mA and/or kV adjustment per patient size (includes targeted exams where dose is matched to clinical indication); or iterative reconstruction. Contrast material: ISOVUE 370; Contrast volume: 75 ml; Contrast route: INTRAVENOUS (IV); COMPARISON: CT Chest without contrast 04/14/2020 8:38 AM FINDINGS: Pulmonary arteries: Normal. No pulmonary emboli. Aorta: There is mild atherosclerosis in the thoracic aorta. There is no aortic dissection or aneurysm. Lungs: Bilateral ground-glass pulmonary parenchymal infiltrates located diffusely extending to the pleural surfaces. Distribution is similar to the prior exam of 04/14/2020 although previously the infiltrates demonstrated a coarse pattern. Findings consistent with multifocal viral pneumonitis (organizing type). The findings are nonspecific and other etiologies for crazy paving pattern including available prognosis and drug-induced pneumonitis to be excluded. Pleural spaces: Small pleural effusions. Heart: There is mild atherosclerotic calcification of the coronary arteries. Lymph nodes: Mediastinal lymphadenopathy likely postinflammatory. Gallbladder and bile ducts: Cholelithiasis. Pericholecystic fluid demonstrated. Finding may indicate acute cholecystitis. Bones/joints: The spine demonstrates mild degenerative changes. Soft tissues: Unremarkable. IMPRESSION: 1. Bilateral ground-glass pulmonary parenchymal infiltrates in a crazy paving pattern as described above. Acute pneumonitis is suspected although other etiologies are suggested as well. 2. Small pleural effusions. 3. There is no aortic dissection or aneurysm. 4. Mediastinal lymphadenopathy likely postinflammatory. 5. Cholelithiasis. Pericholecystic fluid demonstrated. Finding may indicate acute cholecystitis. Electronically signed by: Dick Keenan On 08/24/2020 21:26:16 PM
[2020-08-24 23:07] LABS: CK-MB VALUE MASS 4.5 NG/ML (<3.6); MB/CK RELATIVE INDEX 3.72 (< OR =4); TROPONIN I 0.16 NG/ML (< 0.10)
[2020-08-24] MEDS ORDERED: FUROSEMIDE 20MG/2ML VIAL (J1940) IV ONE (23:35)
[2020-08-25] MEDS ORDERED: ZOLO100T PO (01:09)
--- NOTE | 2020-08-25 01:19 | HPEPDOC ---
[facility] Medical History & Physical Date of Admission Aug 25, 2020 Date of Service: Aug 25, 2020 History and Physical CHIEF COMPLAINT: shortness of breath HISTORY OF PRESENT ILLNESS: 55 yo M with a hx of multiple CVA, HTN, HLD, possible paroxysmal afib (given CVA hx, has loop recorded, needs to f/u with cardio) presenting to ER with a 2 day history of worsening shortness of breath and reduced exercise tolerance, able to walk max 15 feet. He denies lower extremity edema, chest pain, palpitations, fevers, chills, cough, or sputum. Noted to have trop elevation, 0.21 with trend down on repeat to 0.15. EKG showing NSR. Patient has previously had trop elevation in 03/2020 thought to be secondary to type II MT vs viral myocarditis vs demand ischemia. Has not followed up with cardiology. PAST MEDICAL HISTORY: History of multiple CVAs, anticoagulation with Eliquis Essential hypertension Hyperlipidemia Opioid use disorder, methadone since 2016 Alcohol use disorder, abstinent since 2016 MDD/JANETH BPH Mild persistent asthma Hypothyroid PAST SURGICAL HISTORY: Internal heart monitor, 09/12 Endoscopy, 09/12 SOCIAL HISTORY: Former smoker Hx of opioid use disorder prior hx of etoh use disorder Denies illicits FAMILY HISTORY: Reviewed family history with patient, no contributing history. ALLERGIES: Please see below. REVIEW OF SYSTEMS: A 10 point ROS was consulted, relatively findings were noted in HPI HOME MEDICATIONS: Please see below. PHYSICAL EXAMINATION: VITAL SIGNS: please see below General: NAD, comfortable HEENT: PERRLA, EOMI, sclerae clear Neck: supple, normal ROM, no JVD Respiratory: lungs CTAB, mild crackles auscultated bilateral lung bases. Fair inspiratory effort CVS: RRR, normal S1, S2, no murmurs Abdo: soft, no masses, no hepatosplenomegaly, BS+, no rebound tenderness Extremities: no edema, pulses 2+ MSK: no joint deformities, normal ROM Neuro: no focal neuro deficits, moving all 4 extremities, CN2-12 intact. Strength 5/5 in all 4 extremities. No nystagmus. Psych: calm, cooperative, AAO x 3 LABORATORY DATA: See below. IMAGING: CXR (08/24/20): Bilateral interstitial coarsening compatible with diffuse bilateral interstitial infiltrates as discussed in detail above. Loop recorder is incidentally identified. This is unchanged from 04/13/2020. CTA chest with IV contrast (08/24/20): 1. Bilateral ground-glass pulmonary parenchymal infiltrates in a crazy paving pattern as described above. Acute pneumonitis is suspected although other etiologies are suggested as well. 2. Small pleural effusions. 3. There is no aortic dissection or aneurysm. 4. Mediastinal lymphadenopathy likely postinflammatory. 5. Cholelithiasis. Pericholecystic fluid demonstrated. Finding may indicate acute cholecystitis. No PE was seen on CT imaging. MICROBIOLOGY: Please see below. ASSESSMENT: 55 yo M with a hx of multiple CVA, HTN, HLD, possible paroxysmal afib, admitted to hospitalist service for workup of dyspnea. . PLAN: Dyspnea possible 2/2 CHF exacerbation (unspecified) vs viral pneumonitis - 2 day hx, severe limitation in exercise tolerance - requiring 3LPM O2 via NC - covid negative by PCR - BMP 31496 - CXR, CT findings c/w likely fluid overload - s/p 20 mg IV lasix, patient has been making good urine in ER - symptoms have greatly improved s/p lasix - 2L fluid restriction. Daily Is and Os. Daily weights. - ordered 2D echo. Last done 04/16, without gross abnormality - c/w lasix 20 mg BID IV HTN - BP labile, 90s/60s in ER - Currently not on medications - will hold antihypertensives Trop elevation likely 2/2 acute CHF exacerbation - 0.21 to 0.16 - no ischemic changes on EKG - suspect elevation in setting of decompensated CHF Hypokalemia - K+ 3.3 - replace Leukocytosis - WBC 12.4. - afebrile, denies cough, sputum, fevers, chills - monitor clinically - check procal Anemia - Hgb 9.8, down from 12/9 in 07/17 - denies dark stools - check fecal occult stool - iron panel, b12, folate Suspected paroxysmal AF: - Suspected given his history of prior strokes - Has loop recorder in place. Has not seen Dr. Fabian since last admission in 03/2020. - c/w Eliquis - patient strongly encouraged to follow up with cardiology Hx of Multiple CVAs - Suspected embolic etiology - concerning for possible paroxysmal afib - c/w Atorvastatin / Eliquis Mood disorder - c/w Sertraline / Hydroxyzine Hypothyroidism: - c/w Levothyroxine BPH - c/w Flomax Methadone dependence: - c/w Methadone DVT prophylaxis - c/w full anticoagulation with Eliquis Vital Signs Vital Signs Date Time Temp Pulse Resp B/P (MAP) Pulse Ox O2 Delivery O2 Flow Rate FiO2 08/24/20 23:51 80 94 08/24/20 22:45 19 107/62 (77) Nasal Cannula 3.0 08/24/20 17:36 97.2 Laboratory Data Labs 24H Laboratory Tests 2 08/24/20 17:57: Immature Granulocyte % (Auto) 1.0, Neutrophils (%) (Auto) 88.7H, Lymphocytes (%) (Auto) 4.8L, Monocytes (%) (Auto) 4.4, Eosinophils (%) (Auto) 0.9, Basophils (%) (Auto) 0.2, Neutrophils # (Auto) 11.0H, Lymphocytes # (Auto) 0.6L, Monocytes # (Auto) 0.6, Eosinophils # (Auto) 0.1, Basophils # (Auto) 0.0, Nucleated Red Blood Cells % (auto) 0.0, Anion Gap 9, Glomerular Filtration Rate > 60.0, Gilles cium Level 8.2L, Total Bilirubin 0.6, Direct Bilirubin 0.4H, Aspartate Amino Transf (AST/SGOT) 46H, Alanine Aminotransferase (ALT/SGPT) 21, Alkaline Phosphatase 87, Total Creatine Kinase 126, Creatine Kinase MB 4.4H, Creatine Kinase MB Relative Index 3.49, Troponin I 0.21H, EY-Iur-P-Type Natriuretic Peptide 39318O, Total Protein 5.9L, Albumin 2.9L, Albumin/Globulin Ratio 1.0 08/24/20 18:09: Prothrombin Time 17.1H, Prothromb Time International Ratio 1.36, Activated Partial Thromboplast Time 39.0H 08/24/20 18:19: POC Troponin I (Misc) 0.21H 08/24/20 22:15: Total Creatine Kinase 121, Creatine Kinase MB 4.5H, Creatine Kinase MB Relative Index 3.72, Troponin I 0.16#H CBC/BMP Laboratory Tests 08/24/20 17:57 Microbiology Microbiology 08/24/20 Respiratory Virus Panel (PCR) (JILL) - Final, Complete Home Medications Scheduled Apixaban (Eliquis) 5 Mg Tablet, 5 MG PO BID Fluticasone Propion/Salmeterol (Airduo Respiclick 232-14 Mcg) 1 Each Aer.pow.ba, 1 PUFF INH BID Gabapentin (Gabapentin) 100 Mg Capsule, 100 MG PO TID TAKES WITH 800MG FOR 900MG TID Gabapentin (Gabapentin) 800 Mg Tablet, 800 MG PO TID TAKES WITH 100MG FOR 900MG TID Levothyroxine Sodium (Synthroid) 50 Mcg Tablet, 50 MCG PO DAILY Meloxicam (Meloxicam) 15 Mg Tablet, 15 MG PO DAILY Methadone HCl (Methadone HCl) 10 Mg/1 Ml Oral.conc, 138 MG PO DAILY Rosuvastatin Calcium (Rosuvastatin Calcium) 40 Mg Tablet, 40 MG PO QHS Sertraline Hcl (Zoloft) 100 Mg Tablet, 100 MG PO BID Tamsulosin HCl (Flomax) 0.4 Mg Capsule, 0.4 MG PO QHS Scheduled PRN Albuterol Sulfate (Proair Hfa) 8.5 Gm Hfa.aer.ad, 2 PUFF INH Q8H PRN for WHEEZING Hydroxyzine Pamoate (Hydroxyzine Pamoate) 25 Mg Capsule, 25 MG PO Q8H PRN for ANXIETY Allergies Coded Allergies: No Known Allergies (Unverified , 09/03/18) A-FIB/CHADSVASC A-FIB History Current/History of A-Fib/PAF?: Yes Current PO Anticoag Therapy: Yes KEMAR HEREDIA MD Aug 25, 2020 01:19
[2020-08-25] MEDS ORDERED: MOM 30ML SUSPENSION UDC PO PRN (01:20)
[2020-08-25] MEDS ORDERED: ACETAMINOPHEN TAB 650MG DOSE (2X325MG) PO PRN (01:20)
[2020-08-25] MEDS ORDERED: hydrOXYzine 25 MG TAB PO PRN (01:20)
[2020-08-25] MEDS ORDERED: ALBUTEROL 90 MCG/ACT 8GM HFA INHALER INH PRN (01:20)
[2020-08-25] MEDS ORDERED: MAALOX 30 ML SUSP *UDC PO PRN (01:20)
[2020-08-25 02:29] LABS: FERRITIN 230 NG/ML (26-388); IRON (FE) 25 UG/DL (65-175); PERCENT SATURATION 13.3 % (19.7-50.0); TOTAL IRON BINDING CAPACITY 188 UG/DL (250-450)
[2020-08-25] MEDS: LEVOTHYROXINE 50MCG TABLET (0.05MG) PO SCH (06:51)
--- NOTE | 2020-08-25 07:14 | ECGEPIP ---
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
[2020-08-25 07:27] LABS: CK-MB VALUE MASS 4.7 NG/ML (<3.6); MB/CK RELATIVE INDEX 2.32 (< OR =4); TROPONIN I 0.06 NG/ML (< 0.10)
[2020-08-25 07:59] LABS: VITAMIN B12 LEVEL 453 PG/ML (247-911)
[2020-08-25 08:00] LABS: FOLATE 17.5 NG/ML (>5.4)
[2020-08-25] MEDS: SYMBICORT 160/4.5MCG INHALER 6GM INH SCH ×2 (08:00→20:12)
[2020-08-25 09:00] VITALS: BP 116/64
[2020-08-25] MEDS ORDERED: ENOXAPARIN 40MG/0.4ML SYRINGE (J1650 PER 10MG) SC SCH (09:00)
[2020-08-25] MEDS: FUROSEMIDE 20MG/2ML VIAL (J1940) IV SCH ×2 (09:04→17:44)
[2020-08-25] MEDS: DOCUSATE SODIUM 100MG CAPSULE PO SCH ×2 (09:04→20:16)
[2020-08-25] MEDS: METHADONE 10 MG TAB (S0109) PO SCH (09:05)
[2020-08-25] MEDS: APIXABAN 5 MG TAB (ELIQUIS) PO SCH ×2 (09:06→20:16)
[2020-08-25] MEDS: SERTRALINE 100 MG TAB PO SCH ×2 (09:06→20:23)
[2020-08-25] MEDS: GABAPENTIN 400MG CAP PO SCH ×3 (09:06→20:15)
[2020-08-25] MEDS: GABAPENTIN 100 MG CAP PO SCH ×3 (09:06→20:15)
[2020-08-25 10:19] LABS: HEMATOCRIT 32.7 % (42.0-52.0); HEMOGLOBIN 10.8 g/dl (13.5-17.5); MEAN CORPUSCULAR HEMOGLOBIN 30.4 pg (27.0-33.0); MEAN CORPUSCULAR VOLUME 92.1 fl (80.0-96.0); PLATELET COUNT, AUTOMATED 263 10^3/uL (150-450); RED BLOOD COUNT 3.55 10^6/uL (4.30-6.10); WHITE BLOOD COUNT 11.4 10^3/uL (4.0-10.0)
[2020-08-25 10:47] LABS: ALT/SGPT 21 U/L (12-78); BILIRUBIN,TOTAL 0.6 MG/DL (0.2-1.0); BLOOD UREA NITROGEN 18 MG/DL (7-18); CARBON DIOXIDE LEVEL 29 MEQ/L (21-32); CHLORIDE LEVEL 105 MEQ/L (98-107); CK-MB VALUE MASS 5.2 NG/ML (<3.6); CPK CREATINE PHOSPHOKINASE 253 U/L (39-308); CREATININE FOR GFR 0.69 MG/DL (0.70-1.30); GLOMERULAR FILTRATION RATE > 60.0 (>56); GLUCOSE, FASTING 73 MG/DL (70-100); MB/CK RELATIVE INDEX 2.06 (< OR =4); NT-PRO BNP 7039 PG/ML (<125); POTASSIUM SERUM 3.8 MEQ/L (3.5-5.1); SODIUM LEVEL 142 MEQ/L (136-145); TOTAL PROTEIN 6.7 GM/DL (6.4-8.2)
[2020-08-25 12:00] VITALS: BP 110/61
--- NOTE | 2020-08-25 13:01 | IPNPDOC ---
Date Seen The patient was seen on 08/25/20. Progress Note SUBJECTIVE: Neg fluid balance overnight since admission, remains on 4 L NC and will attempt to further wean down. NSR currently. Procalcitonin pending to r/o PNA. Discussed case with Dr. Fabian who agreed with current treatment: diuretics, fluid restriction and echocardiogram. Trop normal this AM and thought to be 2/2 to CHF. Denies chest pain, fevers, cough, chills, n/v/d. OBJECTIVE: PHYSICAL EXAMINATION: VITAL SIGNS: please see below General: NAD, comfortable HEENT: PERRLA, EOMI, sclerae clear, NC in place Neck: supple, normal ROM, mildly elevated JVD Respiratory: lungs CTAB, mild crackles auscultated bilateral lung bases. Fair inspiratory effort CVS: RRR, normal S1, S2, no murmurs Abdo: soft, no masses, no hepatosplenomegaly, BS+, no rebound tenderness Extremities: no edema, pulses 2+ MSK: no joint deformities, normal ROM Neuro: no focal neuro deficits, moving all 4 extremities, CN2-12 intact. Strength 5/5 in all 4 extremities. No nystagmus. Psych: calm, cooperative, AAO x 3 LABORATORY DATA: See below. IMAGING: CXR (08/24/20): Bilateral interstitial coarsening compatible with diffuse bilateral interstitial infiltrates as discussed in detail above. Loop recorder is incidentally identified. This is unchanged from 04/13/2020. CTA chest with IV contrast (08/24/20): 1. Bilateral ground-glass pulmonary parenchymal infiltrates in a crazy paving pattern as described above. Acute pneumonitis is suspected although other etiologies are suggested as well. 2. Small pleural effusions. 3. There is no aortic dissection or aneurysm. 4. Mediastinal lymphadenopathy likely postinflammatory. 5. Cholelithiasis. Pericholecystic fluid demonstrated. Finding may indicate acute cholecystitis. No PE was seen on CT imaging. Last echocardiogram 2019: EF 65-70% Normal sinus rhythm with subtle intraventricular conduction disturbance. M-mode and two-dimensional echocardiography was performed with pulse, continuous wave, color flow, and tissue Doppler studies. Normal left ventricular size, wall thickness, and wall motion. Borderline left atrial enlargement with currently normal left ventricular (LV) diastolic dysfunction and estimated mean left atrial pressure. Right heart chambers upper limits normal in size with normal right ventricular free wall motion and Doppler evidence of mild pulmonary hypertension. Normal inferior vena cava (IVC) size and collapse against an elevated central venous pressure. Normal aortic dimensions. Normal appearing valvular structures with very mild mitral and tricuspid insuf ficiency (physiological findings). No apparent intracardiac mass or pericardial effusion. MICROBIOLOGY: Please see below. ASSESSMENT: 55 yo M with a hx of multiple CVA, HTN, HLD, possible paroxysmal afib, admitted for SOB likely 2/2 to CHF exacerbation with pleural effusions, ? infiltrates (PNA) vs. pneumonitis. PLAN: SOB likely multifactorial 2/2 to acute HFpEF exacerbation with pleural ef fusions, ? infiltrates (PNA) vs. pneumonitis. -remains on 4 L NC, diuresing nicely -WBC remains mildly elevated at 11K, not currently on abx -BNP improving since admission -Echo from 2019 above -F/u echocardiogram, procalcitonin to r/o PNA -Discussed case with Dr. Mayes, to review CT scan -For now c/w lasix BID, strict I&O's, daily wt, decreased fluid restriction to 1800 mL/day. HFpEF with exacerbation -Please see above Hypotension -Hx of HTN -Improved -Monitor while agressively diuresing -HOlding home antihypertensives while on BId IV lasix Trop elevation likely 2/2 acute CHF exacerbation -Peaked at 0.21, this AM wnl -Denies chest pain, diaphoresis, incr shortness of breath -No ischemic changes on EKG -Discussed with Dr. Fabian Hypokalemia, acute and resolved -K wnl this AM -Daily labs NATANAEL -H/H improved. No concerns for bleeding -Starting on iron BID -F/u fecal occult stool -daily CBC Suspected paroxysmal AF -Currently NSR, rate controlled. Hx of prior strokes -Has loop recorder in place. Has not seen Dr. Fabian since last admission in 03/2020. -C/w Eliquis -Discussed with Dr. Fabian, f/u after discharge. Hx of Multiple CVAs believed to be 2/2 to embolic etiology -Concerning for possible paroxysmal afib -C/w Atorvastatin / Eliquis Mood disorder -Stable -C/w Sertraline / Hydroxyzine Hypothyroidism -C/w Levothyroxine BPH -C/w Flomax Methadone dependence -C/w Methadone DVT prophylaxis -C/w full anticoagulation with Eliquis DISPOSITION: Admitted as acute inpatient. Plan is discharge home when medically improved. VS, I&O, 24H[facility] Vital Signs/I&O Vital Signs Date Time Temp Pulse Resp B/P (MAP) Pulse Ox O2 Delivery O2 Flow Rate FiO2 08/25/20 09:00 98.2 83 20 116/64 (81) 89 Nasal Cannula 2.0 Laboratory Data 24H LABS Laboratory Tests 2 08/24/20 17:57: Immature Granulocyte % (Auto) 1.0, Neutrophils (%) (Auto) 88.7H, Lymphocytes (%) (Auto) 4.8L, Monocytes (%) (Auto) 4.4, Eosinophils (%) (Auto) 0.9, Basophils (%) (Auto) 0.2, Neutrophils # (Auto) 11.0H, Lymphocytes # (Auto) 0.6L, Monocytes # (Auto) 0.6, Eosinophils # (Auto) 0.1, Basophils # (Auto) 0.0, Nucleated Red Blood Cells % (auto) 0.0, Anion Gap 9, Glomerular Filtration Rate > 60.0, Calcium Level 8.2L, Iron Level 25L, Total Iron Binding Capacity 188L, Transferrin % Saturation 13.3L, Ferritin 230, Total Bilirubin 0.6, Direct Bilirubin 0.4H, Aspartate Amino Transf (AST/SGOT) 46H, Alanine Aminotransferase (ALT/SGPT) 21, Alkaline Phosphatase 87, Total Creatine Kinase 126, Creatine Kinase MB 4.4H, Creatine Kinase MB Relative Index 3.49, Troponin I 0.21H, VR-Whc-O-Type Natriuretic Peptide 24851N, Total Protein 5.9L, Albumin 2.9L, Albumin/Globulin Ratio 1.0, Vitamin B12 Level 453, Folate 17.5 08/24/20 18:09: Prothrombin Time 17.1H, Prothromb Time International Ratio 1.36, Activated Partial Thromboplast Time 39.0H 08/24/20 18:19: POC Troponin I (Misc) 0.21H 08/24/20 22:15: Total Creatine Kinase 121, Creatine Kinase MB 4.5H, Creatine Kinase MB Relative Index 3.72, Troponin I 0.16#H 08/25/20 04:42: Total Creatine Kinase 203, Creatine Kinase MB 4.7H, Creatine Kinase MB Relative Index 2.32, Troponin I 0.06# 08/25/20 09:37: Total Creatine Kinase 253, Creatine Kinase MB 5.2H, Creatine Kinase MB Relative Index 2.06, Troponin I 0.10#, Nucleated Red Blood Cells % (auto) 0.0, Anion Gap 8, Glomerular Filtration Rate > 60.0, Calcium Level 9.0, Total Bilirubin 0.6, Aspartate Amino Transf (AST/SGOT) 52H, Alanine Aminotransferase (ALT/SGPT) 21, Alkaline Phosphatase 92, YT-Dtu-D-Type Natriuretic Peptide 7039H, Total Protein 6.7, Albumin 3.0L, Albumin/Globulin Ratio 0.8 CBC/BMP Laboratory Tests 08/24/20 17:57 08/25/20 09:37 Microbiology Microbiology 08/24/20 Respiratory Virus Panel (PCR) (JILL) - Final, Complete Current Medications Current Medications Medications (Trade) Dose Ordered Sig/Amanda Route PRN Reason Start Time Stop Time Status Last Admin Dose Admin Acetaminophen (Tylenol Tab) 650 mg Q4H PRN PO PAIN OR FEVER 08/25/20 01:20 Al Hydrox/Mg Hydrox/Simethicone (Mylanta) 30 ml DAILY PRN PO DYSPEPSIA 08/25/20 01:20 Albuterol Sulfate (Proventil, Ventolin Hfa) 2 puff Q8H PRN INH WHEEZING 08/25/20 01:20 Apixaban (Eliquis) 5 mg BID PO 08/25/20 09:00 08/25/20 09:06 Budesonide/ Formoterol Fumarate (Symbicort 160/ 4.5mcg) 2 puff RBID INH 08/25/20 08:00 Docusate Sodium (Colace) 100 mg BID PO 08/25/20 09:00 08/25/20 09:04 Enoxaparin Sodium (Lovenox) 40 mg DAILY SC 08/25/20 09:00 08/25/20 02:18 DC Furosemide (LASIX injection) 20 mg BID@09,17 IV 08/25/20 09:00 08/25/20 09:04 Gabapentin (Neurontin) 100 mg TID PO 08/25/20 09:00 08/25/20 09:06 Gabapentin (Neurontin) 800 mg TID PO 08/25/20 09:00 08/25/20 09:06 Home Med (Med Rec Complete!) ASDIRECTED XX 08/25/20 01:10 08/25/20 01:21 DC Hydroxyzine HCl (Atarax) 25 mg Q8H PRN PO ANXIETY 08/25/20 01:20 Levothyroxine Sodium (Synthroid) 50 mcg DAILY@0600 PO 08/25/20 06:00 08/25/20 06:51 Magnesium Hydroxide (Milk Of Magnesia) 30 ml DAILY PRN PO CONSTIPATION 08/25/20 01:20 Meloxicam (Mobic) 15 mg DAILY PO 08/25/20 09:00 Methadone HCl (Dolophine) 140 mg DAILY PO 08/25/20 09:00 08/25/20 09:05 Rosuvastatin Calcium (Crestor) 40 mg QHS PO 08/25/20 21:00 Sertraline HCl (Zoloft) 100 mg BID PO 08/25/20 09:00 08/25/20 09:06 Tamsulosin HCl (Flomax) 0.4 mg QHS PO 08/25/20 21:00 Allergies Coded Allergies: No Known Allergies (Unverified , 09/03/18) Francisca De León MD Aug 25, 2020 13:01
[2020-08-25] MEDS: FERROUS SULFATE 325MG TAB PO SCH ×2 (13:31→20:16)
[2020-08-25] MEDS: MELOXICAM (MOBIC) 7.5 MG TAB PO SCH (13:31)
[2020-08-25 16:00] VITALS: BP 108/64
[2020-08-25] MEDS: ROSUVASTATIN 10 MG TAB (CRESTOR) PO SCH (20:15)
[2020-08-25] MEDS: TAMSULOSIN 0.4 MG CAP PO SCH (20:17)
[2020-08-25 20:30] VITALS: BP 98/60
[2020-08-26] VITALS: BP 97/65
[2020-08-26 04:00] VITALS: BP 113/69
[2020-08-26 05:39] LABS: BASO % 0.5 % (0.0-1.0); EOS # 0.6 10^3/uL (0.0-0.5); EOS % 8.1 % (0.0-3.0); HEMATOCRIT 37.3 % (42.0-52.0); LYMPH # 1.7 10^3/uL (1.5-5.0); LYMPH % 22.4 % (24.0-44.0); MEAN CORPUSCULAR HEMOGLOBIN 30.5 pg (27.0-33.0); MEAN CORPUSCULAR HGB CONC 32.2 g/dl (32.0-36.5); MEAN CORPUSCULAR VOLUME 94.7 fl (80.0-96.0); MONO # 0.4 10^3/uL (0.0-0.8); MONO % 4.9 % (2.0-8.0); NEUTROPHILS # 4.7 10^3/uL (1.5-8.5); NEUTROPHILS % 63.2 % (36.0-66.0); PLATELET COUNT, AUTOMATED 262 10^3/uL (150-450); RED BLOOD COUNT 3.94 10^6/uL (4.30-6.10); WHITE BLOOD COUNT 7.4 10^3/uL (4.0-10.0)
[2020-08-26] MEDS: LEVOTHYROXINE 50MCG TABLET (0.05MG) PO SCH (06:15)
[2020-08-26] MEDS: SYMBICORT 160/4.5MCG INHALER 6GM INH SCH ×2 (07:48→20:40)
[2020-08-26 08:00] VITALS: BP 110/62
[2020-08-26] MEDS: METHADONE 10 MG TAB (S0109) PO SCH (08:58)
[2020-08-26] MEDS: FERROUS SULFATE 325MG TAB PO SCH ×2 (08:59→20:18)
[2020-08-26] MEDS: GABAPENTIN 100 MG CAP PO SCH ×3 (08:59→20:18)
[2020-08-26] MEDS: DOCUSATE SODIUM 100MG CAPSULE PO SCH ×2 (08:59→20:18)
[2020-08-26] MEDS: FUROSEMIDE 20MG/2ML VIAL (J1940) IV SCH ×2 (08:59→16:20)
[2020-08-26] MEDS: APIXABAN 5 MG TAB (ELIQUIS) PO SCH ×2 (08:59→20:18)
[2020-08-26] MEDS: SERTRALINE 100 MG TAB PO SCH ×2 (08:59→20:18)
[2020-08-26] MEDS: MELOXICAM (MOBIC) 7.5 MG TAB PO SCH (08:59)
[2020-08-26] MEDS: GABAPENTIN 400MG CAP PO SCH ×3 (08:59→20:18)
[2020-08-26 09:57] LABS: ALBUMIN 2.8 GM/DL (3.2-5.2); ALT/SGPT 21 U/L (12-78); BILIRUBIN,TOTAL 0.4 MG/DL (0.2-1.0); BLOOD UREA NITROGEN 23 MG/DL (7-18); CALCIUM LEVEL 8.9 MG/DL (8.5-10.1); CARBON DIOXIDE LEVEL 32 MEQ/L (21-32); CHLORIDE LEVEL 103 MEQ/L (98-107); CREATININE FOR GFR 0.67 MG/DL (0.70-1.30); GLOMERULAR FILTRATION RATE > 60.0 (>56); GLUCOSE, FASTING 66 MG/DL (70-100); MAGNESIUM LEVEL 2.2 MG/DL (1.8-2.4); SODIUM LEVEL 141 MEQ/L (136-145); TOTAL PROTEIN 6.2 GM/DL (6.4-8.2)
[2020-08-26] MEDS ORDERED: SLF 3 ML SYR IV PRN (10:55)
[2020-08-26 11:02] LABS: VITAMIN B12 LEVEL 550 PG/ML (247-911)
[2020-08-26 11:38] LABS: FOLATE > 24.0 NG/ML (>5.4)
[2020-08-26 12:00] VITALS: BP 107/69
[2020-08-26] MEDS: SLF 3 ML SYR IV SCH ×2 (13:31→20:18)
[2020-08-26 16:00] VITALS: BP 100/58
--- NOTE | 2020-08-26 16:30 | IPNPDOC ---
Text Note Date of Service The patient was seen on 08/26/20. NOTE SUBJECTIVE: Patient continues to diurese quite well. His oxygen requirements have been going down, he was on 2 L oxygen when I entered the room, but I turned it off, and during our entire conversation he was not short of breath, therefore we will see how he does without oxygen. He has had some minimal crackles at the lower bases, but otherwise is overall clinical appearance appears to be significantly improved. He does admit that he drinks 2 L Pepsi daily, and he is aware that overconsumption of liquids may be contributing to his current issue. He will try to maintain his fluid restriction while at home. OBJECTIVE: PHYSICAL EXAMINATION: VITAL SIGNS: please see below General: NAD, comfortable HEENT: PERRLA, EOMI, sclerae clear, NC in place Neck: supple, normal ROM, mildly elevated JVD Respiratory: mild crackles auscultated bilateral lung bases bilaterally, othe rwise remainder of the lung edward are clear CVS: RRR, normal S1, S2, no murmurs Abdo: soft, no masses, no hepatosplenomegaly, BS+, no rebound tenderness Extremities: no edema, pulses 2+ MSK: no joint deformities, normal ROM Neuro: no focal neuro deficits, moving all 4 extremities, CN2-[address]th 5/5 in all 4 extremities. No nystagmus. Psych: calm, cooperative, AAO x 3 LABORATORY DATA: See below. ASSESSMENT: 55 yo M with a hx of multiple CVA, HTN, HLD, possible paroxysmal afib, admitted for SOB likely 2/2 to CHF exacerbation with pleural effusions, ? infiltrates (PNA) vs. pneumonitis. PLAN: SOB likely multifactorial 2/2 to acute HFpEF exacerbation with pleural effusions, ? infiltrates (PNA) vs. pneumonitis. -diuresing nicely, oxygen requirements continued to decrease -WBC within normal limits today. Not currently on abx, and given his significant improvement clinically, will continue to hold antibiotics at this time. -BNP improving since admission -Repeat echo was performed today, awaiting results -Discussed case with Dr. Mayes, to review CT scan -For now c/w lasix BID, strict I&O's, daily wt, decreased fluid restriction to 1800 mL/day. HFpEF with exacerbation -Please see above Hypotension -Hx of HTN -Improved -Monitor while agressively diuresing -HOlding home antihypertensives while on BId IV lasix Trop elevation likely 2/2 acute CHF exacerbation -Now within normal limits -Denies chest pain, diaphoresis, incr shortness of breath -No ischemic changes on EKG Hypokalemia, acute and resolved -Daily labs NATANAEL -H/H improved. No concerns for bleeding -iron BID -F/u fecal occult stool -daily CBC Suspected paroxysmal AF -Currently NSR, rate controlled. Hx of prior strokes -Has loop recorder in place. Has not seen Dr. Fabian since last admission in 03/2020. -C/w Eliquis -Discussed with Dr. Fabian, f/u after discharge. Hx of Multiple CVAs believed to be 2/2 to embolic etiology -Concerning for possible paroxysmal afib -C/w Atorvastatin / Eliquis Mood disorder -Stable -C/w Sertraline / Hydroxyzine Hypothyroidism -C/w Levothyroxine BPH -C/w Flomax Methadone dependence -C/w Methadone DVT prophylaxis -C/w full anticoagulation with Eliquis DISPOSITION: Admitted as acute inpatient. Plan is discharge home when medically improved. VS,Fishbone, I+O VS, Fishbone, I+O Laboratory Tests 08/26/20 05:00 Vital Signs Date Time Temp Pulse Resp B/P (MAP) Pulse Ox O2 Delivery O2 Flow Rate FiO2 08/26/20 04:00 97.7 76 18 113/69 (84) 93 High Flow Cannula 3.0 I&O- Last 24 Hours up to 6 AM 08/26/20 06:00 Intake Total 805 ml Output Total 1750 ml Balance -945 ml ROCCO HOLBROOK DO Aug 26, 2020 09:58
--- NOTE | 2020-08-26 17:14 | ECGEPIP ---
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
[2020-08-26] MEDS: ROSUVASTATIN 10 MG TAB (CRESTOR) PO SCH (20:18)
[2020-08-26] MEDS: TAMSULOSIN 0.4 MG CAP PO SCH (20:18)
[2020-08-26 21:34] VITALS: BP 104/80
[2020-08-27] VITALS: BP 113/70
[2020-08-27 04:00] VITALS: BP 104/64
[2020-08-27] MEDS: LEVOTHYROXINE 50MCG TABLET (0.05MG) PO SCH (06:18)
[2020-08-27] MEDS: SLF 3 ML SYR IV SCH (06:19)
[2020-08-27 06:45] LABS: BASO # 0.1 10^3/uL (0.0-0.2); BASO % 0.8 % (0.0-1.0); EOS # 0.5 10^3/uL (0.0-0.5); EOS % 6.1 % (0.0-3.0); LYMPH # 1.5 10^3/uL (1.5-5.0); LYMPH % 19.4 % (24.0-44.0); MEAN CORPUSCULAR HEMOGLOBIN 30.8 pg (27.0-33.0); MEAN CORPUSCULAR HGB CONC 32.4 g/dl (32.0-36.5); MEAN CORPUSCULAR VOLUME 94.9 fl (80.0-96.0); MONO # 0.4 10^3/uL (0.0-0.8); MONO % 5.1 % (2.0-8.0); PLATELET COUNT, AUTOMATED 315 10^3/uL (150-450); WHITE BLOOD COUNT 7.5 10^3/uL (4.0-10.0)
[2020-08-27 07:02] LABS: ALBUMIN 2.8 GM/DL (3.2-5.2); ALT/SGPT 25 U/L (12-78); BILIRUBIN,TOTAL 0.4 MG/DL (0.2-1.0); BLOOD UREA NITROGEN 22 MG/DL (7-18); CALCIUM LEVEL 8.7 MG/DL (8.5-10.1); CARBON DIOXIDE LEVEL 33 MEQ/L (21-32); CHLORIDE LEVEL 100 MEQ/L (98-107); GLOMERULAR FILTRATION RATE > 60.0 (>56); GLUCOSE, FASTING 75 MG/DL (70-100); MAGNESIUM LEVEL 2.1 MG/DL (1.8-2.4); POTASSIUM SERUM 3.8 MEQ/L (3.5-5.1); SODIUM LEVEL 139 MEQ/L (136-145); TOTAL PROTEIN 6.2 GM/DL (6.4-8.2)
[2020-08-27] MEDS: SYMBICORT 160/4.5MCG INHALER 6GM INH SCH (07:32)
[2020-08-27 08:00] VITALS: BP 125/79
[2020-08-27] MEDS: FERROUS SULFATE 325MG TAB PO SCH (08:26)
[2020-08-27] MEDS: MELOXICAM (MOBIC) 7.5 MG TAB PO SCH (08:26)
[2020-08-27] MEDS: APIXABAN 5 MG TAB (ELIQUIS) PO SCH (08:26)
[2020-08-27] MEDS: METHADONE 10 MG TAB (S0109) PO SCH (08:26)
[2020-08-27] MEDS: FUROSEMIDE 20MG/2ML VIAL (J1940) IV SCH (08:27)
[2020-08-27] MEDS: GABAPENTIN 100 MG CAP PO SCH (08:27)
[2020-08-27] MEDS: SERTRALINE 100 MG TAB PO SCH (08:27)
[2020-08-27] MEDS: GABAPENTIN 400MG CAP PO SCH (08:27)
[2020-08-27] MEDS ORDERED: FURO20TA2 PO (08:49)
[2020-08-27 08:53] LABS: NT-PRO BNP 842 PG/ML (<125)
[2020-08-27] MEDS: DOCUSATE SODIUM 100MG CAPSULE PO SCH (09:00)
--- NOTE | 2020-08-27 15:37 | DS.PDOC ---
Discharge Summary General Date of Admission Aug 25, 2020 at 01:20 Date of Discharge 08/27/2020 Discharge Summary PRIMARY CARE PHYSICIAN: Alyson Arceo ATTENDING AT TIME OF DISCHARGE: Dr. 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 He was found to be having an acute decompensation of heart failure with preserved ejection fraction. He was found to have mildly elevated troponins on admission, but these trended down and his EKG showed no acute changes. The likely etiology of his acute decompensation was not adherence to fluid restrictions while at home, he admits that he had been drinking too much diet Pepsi, in excess of 2 L daily. After aggressive diuresis and strict fluid restriction his clinical picture is significantly improved, he was weaned off of oxygen, and no longer has crackles on examination. Today he does appear stable for discharge. PHYSICAL EXAMINATION ON DISCHARGE: GENERAL: Awake, alert, oriented 3. He is in no acute distress at this time. CARDIOVASCULAR EXAMINATION: Regular rate and rhythm, with no rubs, gallops, or murmur. RESPIRATORY EXAMINATION: Clear to auscultation bilaterally with no wheezes, rales, or rhonchi. ABDOMINAL EXAMINATION: Soft, nontender, nondistended. Bowel sounds present. EXTREMITIES: No clubbing or edema noted. 2+ pulses in the radial bilaterally. DISPOSITION: Home DISCHARGE INSTRUCTIONS: Follow-up with primary care provider within 7-14 days. Recommend 1800 mL fluid restriction daily, and 2 g sodium restriction diet. Activity as tolerated. If symptoms return, or if you experience worsening of your symptoms, please call your doctor or return to the emergency department. DISCHARGE MEDICATIONS: Continue taking from home: Albuterol 2 puffs inhaled every 8 hours when necessary wheezing Eliquis 5 mg by mouth twice a day AirDuo one puff inhaled twice a day Gabapentin 100 mg by mouth 3 times a day Gabapentin 800 mg by mouth 3 times a day Hydroxyzine 25 mg by mouth every 8 hours when necessary anxiety Synthroid 50 MCG by mouth daily Meloxicam 15 mg by mouth daily Methadone 138 mg by mouth daily Rosuvastatin 40 mg by mouth daily at bedtime Zoloft 100 mg by mouth twice a day Flomax 0.4 mg by mouth daily at bedtime New Medications: Furosemide 20 mg by mouth daily ITEMS THAT NEED OUTPATIENT FOLLOWUP: Results from echocardiogram are still pending, recommend discuss these results with your PCP. Vital Signs/I&Os Vital Signs Date Time Temp Pulse Resp B/P (MAP) Pulse Ox O2 Delivery O2 Flow Rate FiO2 08/27/20 08:00 98.2 61 18 125/79 (94) 91 Room Air 08/27/20 04:00 3.0 I&O- Last 24 Hours up to 6 AM 08/27/20 06:00 Intake Total 1250 ml Output Total 1975 ml Balance -725 ml Laboratory Data Labs 24H Laboratory Tests 2 08/27/20 05:45: Immature Granulocyte % (Auto) 1.6, Neutrophils (%) (Auto) 67.0H, Lymphocytes (%) (Auto) 19.4L, Monocytes (%) (Auto) 5.1, Eosinophils (%) (Auto) 6.1H, Basophils (%) (Auto) 0.8, Neutrophils # (Auto) 5.0, Lymphocytes # (Auto) 1.5, Monocytes # (Auto) 0.4, Eosinophils # (Auto) 0.5, Basophils # (Auto) 0.1, Nucleated Red Blood Cells % (auto) 0.0, Anion Gap 6L, Glomerular Filtration Rate > 60.0, Calcium Level 8.7, Magnesium Level 2.1, Total Bilirubin 0.4, Aspartate Amino Transf (AST/SGOT) 35, Alanine Aminotransferase (ALT/SGPT) 25, Alkaline Phosphatase 82, YT-[id number]-M-Type Natriuretic Peptide 842H, Total Protein 6.2L, Albumin 2.8L, Albumin/Globulin Ratio 0.8 CBC/BMP Laboratory Tests 08/27/20 05:45 Microbiology Microbiology 08/24/20 Respiratory Virus Panel (PCR) ([facility]) - Final, Complete Discharge Medications Scheduled Apixaban (Eliquis) 5 Mg Tablet, 5 MG PO BID, (Reported) Fluticasone Propion/Salmeterol (Airduo Respiclick 232-14 Mcg) 1 Each Aer.pow.ba, 1 PUFF INH BID, (Reported) Furosemide (Furosemide) 20 Mg Tablet, 20 MG PO DAILY Gabapentin (Gabapentin) 100 Mg Capsule, 100 MG PO TID, (Reported) TAKES WITH 800MG FOR 900MG TID Gabapentin (Gabapentin) 800 Mg Tablet, 800 MG PO TID, (Reported) TAKES WITH 100MG FOR 900MG TID Levothyroxine Sodium (Synthroid) 50 Mcg Tablet, 50 MCG PO DAILY, (Reported) Meloxicam (Meloxicam) 15 Mg Tablet, 15 MG PO DAILY, (Reported) Methadone HCl (Methadone HCl) 10 Mg/1 Ml Oral.conc, 138 MG PO DAILY, (Reported) Rosuvastatin Calcium (Rosuvastatin Calcium) 40 Mg Tablet, 40 MG PO QHS, (Reported) Sertraline Hcl (Zoloft) 100 Mg Tablet, 100 MG PO BID, (Reported) Tamsulosin HCl (Flomax) 0.4 Mg Capsule, 0.4 MG PO QHS, (Reported) Scheduled PRN Albuterol Sulfate (Proair Hfa) 8.5 Gm Hfa.aer.ad, 2 PUFF INH Q8H PRN for W HEEZING, (Reported) Hydroxyzine Pamoate (Hydroxyzine Pamoate) 25 Mg Capsule, 25 MG PO Q8H PRN for ANXIETY, (Reported) Allergies Coded Allergies: No Known Allergies (Unverified , 09/03/18) ROCCO HOLBROOK DO Aug 27, 2020 15:37
--- NOTE | 2020-08-29 09:51 | ECHO ---
DATE OF PROCEDURE: 08/26/2020 Age: 55 Gender: Male REFERRING PROVIDER: KEMAR HEREDIA MD PATIENT LOCATION: Room 3214 REASON FOR STUDY: Congestive heart failure, unspecified. 2D MEASUREMENTS: IVS 1.0 cm LV 4.5 cm LVPW 1.1 cm LA 3.9 cm Aorta 2.8 cm IVC 1.6 cm DOPPLER MEASUREMENT Peak velocity across the aortic valve 1.7 m/s Peak velocity across the LVOT 0.99 m/s Mitral E 0.78 Mitral A 0.72 with a ratio of 1.1 2D COMMENTS: 1. Normal left ventricular size, wall thickness, and normal global left ventricular systolic function. The estimated left ventricular systolic ejection fraction is 60% to 65%. 2. Normal left atrium. Normal right atrium and right ventricle. 3. The atrial septum appeared to be normal without evidence of defect or shunt. 4. Normal aortic root. 5. No pericardial effusion seen. 6. Minimally calcified aortic valve with normal leaflet excursion. Normal mitral valve, tricuspid valve, and pulmonic valve. The proximal pulmonary artery branches also appeared to be normal. 7. The inferior vena cava was normal in size; central venous pressure is most likely normal. Doppler detects trace mitral regurgitation. Assessment of the left ventricular diastolic function appeared to be normal. IMPRESSION: 1. Normal global left ventricular systolic and diastolic function. 2. No significant valvular heart disease, but trace mitral regurgitation. MTDD
== END 2020-08-27 09:55 | disposition home or self-care (01) | DRG 194 ==
LOC: M ED 17:36 → M ED INP 08-25 01:20 → ENRESERV 08-25 06:33 → M PCU 08-25 08:55
PROVIDERS: ADMIT Family Medicine; ATTEND Family Medicine
DX: I11.0 Hypertensive heart disease with heart failure (principal); I50.32 Chronic diastolic (congestive) heart failure; J96.01 Acute respiratory failure with hypoxia; I48.0 Paroxysmal atrial fibrillation; E03.9 Hypothyroidism, unspecified; D50.9 Iron deficiency anemia, unspecified; F10.21 Alcohol dependence, in remission; E78.5 Hyperlipidemia, unspecified; E87.6 Hypokalemia; D72.829 Elevated white blood cell count, unspecified; F11.21 Opioid dependence, in remission; F39 Unspecified mood [affective] disorder; J45.909 Unspecified asthma, uncomplicated; N40.0 Benign prostatic hyperplasia without lower urinary tract symptoms; Z87.891 Personal history of nicotine dependence; Z86.73 Personal history of transient ischemic attack (TIA), and cerebral infarction without residual deficits; Z79.01 Long term (current) use of anticoagulants; Z79.899 Other long term (current) drug therapy

== ENCOUNTER → 2020-09-01 | Outpatient (REF) | payer OTHER ==
[~2020-09-01] MED LIST changes: +FURO20TA2 PO; +ZOLO100T PO
[2020-09-01 17:29] LABS: BASO # 0.1 10^3/uL (0.0-0.2); BASO % 0.6 % (0.0-1.0); EOS # 0.2 10^3/uL (0.0-0.5); EOS % 2.2 % (0.0-3.0); HEMATOCRIT 37.1 % (42.0-52.0); HEMOGLOBIN 12.1 g/dl (13.5-17.5); LYMPH % 23.6 % (24.0-44.0); MEAN CORPUSCULAR HEMOGLOBIN 30.8 pg (27.0-33.0); MEAN CORPUSCULAR HGB CONC 32.6 g/dl (32.0-36.5); MEAN CORPUSCULAR VOLUME 94.4 fl (80.0-96.0); MONO # 0.5 10^3/uL (0.0-0.8); MONO % 5.7 % (2.0-8.0); NEUTROPHILS # 5.6 10^3/uL (1.5-8.5); NEUTROPHILS % 67.3 % (36.0-66.0); PLATELET COUNT, AUTOMATED 346 10^3/uL (150-450); RED BLOOD COUNT 3.93 10^6/uL (4.30-6.10); WHITE BLOOD COUNT 8.3 10^3/uL (4.0-10.0)
[2020-09-01 17:58] LABS: ALBUMIN 3.1 GM/DL (3.2-5.2); ALT/SGPT 19 U/L (12-78); BILIRUBIN,TOTAL 0.3 MG/DL (0.2-1.0); BLOOD UREA NITROGEN 12 MG/DL (7-18); CALCIUM LEVEL 8.7 MG/DL (8.5-10.1); CARBON DIOXIDE LEVEL 28 MEQ/L (21-32); CHLORIDE LEVEL 104 MEQ/L (98-107); CHOLESTEROL LEVEL 206 MG/DL (<200); CHOLESTEROL RISK RATIO 4.382 (<5); CREATININE FOR GFR 0.81 MG/DL (0.70-1.30); FERRITIN 70 NG/ML (26-388); GLOMERULAR FILTRATION RATE > 60.0 (>56); GLUCOSE, FASTING 69 MG/DL (70-100); HDL CHOLESTEROL 47 MG/DL (>40); IRON (FE) 41 UG/DL (65-175); LDL CHOLESTEROL 116 MG/DL (<100); NON-HDL-C 159 MG/DL; NT-PRO BNP 538 PG/ML (<125); POTASSIUM SERUM 4.4 MEQ/L (3.5-5.1); SODIUM LEVEL 137 MEQ/L (136-145); TOTAL PROTEIN 6.5 GM/DL (6.4-8.2); TRIGLYCERIDES LEVEL 215 MG/DL (<150)
== END ==
LOC: M SFHCPLAZ 15:09
PROVIDERS: ATTEND Physician Assistant Medical
DX: I50.9 Heart failure, unspecified (principal); E78.2 Mixed hyperlipidemia; I11.0 Hypertensive heart disease with heart failure; E03.9 Hypothyroidism, unspecified; D50.9 Iron deficiency anemia, unspecified; J96.01 Acute respiratory failure with hypoxia

== ENCOUNTER → 2020-12-07 | Outpatient (CLI) | payer OTHER ==
[~2020-12-07] MED LIST changes: -SIME180C PO; +SIME180C25 PO
[2020-12-07 13:45] LABS: BASO # 0.1 10^3/uL (0.0-0.2); EOS # 0.2 10^3/uL (0.0-0.5); EOS % 3.6 % (0.0-3.0); HEMATOCRIT 41.8 % (42.0-52.0); HEMOGLOBIN 13.7 g/dl (13.5-17.5); LYMPH # 1.4 10^3/uL (1.5-5.0); LYMPH % 22.6 % (24.0-44.0); MEAN CORPUSCULAR HEMOGLOBIN 30.5 pg (27.0-33.0); MEAN CORPUSCULAR HGB CONC 32.8 g/dl (32.0-36.5); MEAN CORPUSCULAR VOLUME 93.1 fl (80.0-96.0); MONO # 0.4 10^3/uL (0.0-0.8); MONO % 7.1 % (2.0-8.0); NEUTROPHILS % 65.5 % (36.0-66.0); PLATELET COUNT, AUTOMATED 314 10^3/uL (150-450); RED BLOOD COUNT 4.49 10^6/uL (4.30-6.10); WHITE BLOOD COUNT 6.1 10^3/uL (4.0-10.0)
[2020-12-07 14:38] LABS: FREE T4 0.7 NG/DL (0.76-1.46); THYROID STIMULATING HORMONE 1.6 uIU/ML (0.358-3.740)
== END ==
LOC: M PLALAB 12:19
PROVIDERS: ATTEND Physician Assistant Medical
DX: E03.9 Hypothyroidism, unspecified (principal)

== ENCOUNTER → 2021-02-15 | Outpatient (CLI) | payer OTHER ==
[2021-02-15 13:56] LABS: HEMATOCRIT 41.4 % (42.0-52.0); HEMOGLOBIN 13.9 g/dl (13.5-17.5); MEAN CORPUSCULAR HEMOGLOBIN 31.6 pg (27.0-33.0); MEAN CORPUSCULAR HGB CONC 33.6 g/dl (32.0-36.5); MEAN CORPUSCULAR VOLUME 94.1 fl (80.0-96.0); PLATELET COUNT, AUTOMATED 261 10^3/uL (150-450); WHITE BLOOD COUNT 6.7 10^3/uL (4.0-10.0)
[2021-02-15 15:23] LABS: ALBUMIN 4.1 GM/DL (3.2-5.2); ALT/SGPT 18 U/L (12-78); BILIRUBIN,TOTAL 0.8 MG/DL (0.2-1.0); BLOOD UREA NITROGEN 16 MG/DL (7-18); CALCIUM LEVEL 9.3 MG/DL (8.5-10.1); CARBON DIOXIDE LEVEL 28 MEQ/L (21-32); CHLORIDE LEVEL 102 MEQ/L (98-107); CREATININE FOR GFR 0.82 MG/DL (0.70-1.30); GLOMERULAR FILTRATION RATE > 60.0 (>56); GLUCOSE, FASTING 74 MG/DL (70-100); HEPATITIS B SURFACE ANTIGEN NEGATIVE (NEGATIVE); POTASSIUM SERUM 4.3 MEQ/L (3.5-5.1); SODIUM LEVEL 139 MEQ/L (136-145); TOTAL PROTEIN 7.5 GM/DL (6.4-8.2)
[2021-02-15 15:35] LABS: HEPATITIS C VIRUS ABY INDEX 0.1 INDEX (<0.8); HIV 1&2 SCREEN CENTAUR NEGATIVE (NEGATIVE)
== END ==
LOC: M PLALAB 11:02
PROVIDERS: ATTEND Family Medicine
DX: F11.20 Opioid dependence, uncomplicated (principal)

== ENCOUNTER → 2021-04-05 | Outpatient (CLI) | payer OTHER ==
[2021-04-05 13:25] LABS: ALT/SGPT 21 U/L (12-78); BILIRUBIN,TOTAL 0.5 MG/DL (0.2-1.0); BLOOD UREA NITROGEN 15 MG/DL (7-18); CARBON DIOXIDE LEVEL 30 MEQ/L (21-32); CHLORIDE LEVEL 102 MEQ/L (98-107); CHOLESTEROL LEVEL 383 MG/DL (<200); CHOLESTEROL RISK RATIO 7.979 (<5); CREATININE FOR GFR 1.06 MG/DL (0.70-1.30); GLOMERULAR FILTRATION RATE > 60.0 (>56); GLUCOSE, FASTING 88 MG/DL (70-100); HDL CHOLESTEROL 48 MG/DL (>40); LDL CHOLESTEROL 296 MG/DL (<100); NON-HDL-C 335 MG/DL; NT-PRO BNP 125 PG/ML (<125); POTASSIUM SERUM 4.5 MEQ/L (3.5-5.1); SODIUM LEVEL 137 MEQ/L (136-145); TOTAL PROTEIN 8.3 GM/DL (6.4-8.2); TRIGLYCERIDES LEVEL 195 MG/DL (<150)
== END ==
LOC: M LAB 12:06
PROVIDERS: ATTEND Physician Assistant
DX: E78.00 Pure hypercholesterolemia, unspecified (principal)

== ENCOUNTER 2021-08-23 11:18 | Emergency (ER) | payer OTHER ==
[~2021-08-23] VITALS: Ht 175.3 cm; Wt 81.3 kg
[~2021-08-23 11:18] MED LIST changes: -CEFD1CAP8 PO; +CEFD300C41 PO; -LEVO500T3 PO; +LEVO500T4 PO; -LISI-898 PO; +LISI5TAB11 PO
[2021-08-23 11:20] VITALS: BP 157/72
[2021-08-23] MEDS ORDERED: SERT50TA29 (11:32)
[2021-08-23] MEDS ORDERED: predniSONE 20 MG TAB PO ONE (12:45)
[2021-08-23] MEDS ORDERED: IPRATROPIUM 0.5MG/ALBUTEROL 2.5MG INH SOL UD 3ML (DUONEB) NEB ONE ×2 (12:45→13:30)
[2021-08-23] MEDS ORDERED: PRED20TA PO (13:39)
== END 2021-08-23 13:52 | disposition home or self-care (01) ==
LOC: M ED 11:18
DX: J44.1 Chronic obstructive pulmonary disease with (acute) exacerbation (principal); I48.91 Unspecified atrial fibrillation; I10 Essential (primary) hypertension; E78.5 Hyperlipidemia, unspecified; F19.10 Other psychoactive substance abuse, uncomplicated; F10.11 Alcohol abuse, in remission; N40.0 Benign prostatic hyperplasia without lower urinary tract symptoms; Z86.73 Personal history of transient ischemic attack (TIA), and cerebral infarction without residual deficits; F17.200 Nicotine dependence, unspecified, uncomplicated; Z79.01 Long term (current) use of anticoagulants; Z79.899 Other long term (current) drug therapy
CPT/HCPCS: 71046; 87428; 93005; 94640; 99283; J7512

== ENCOUNTER → 2021-12-19 | Outpatient (CLI) | payer OTHER ==
[~2021-12-19] MED LIST changes: +SERT50TA29
[2021-12-19 09:01] LABS: BASO # 0.1 10^3/uL (0.0-0.2); EOS # 0.3 10^3/uL (0.0-0.5); EOS % 4.6 % (0.0-3.0); HEMATOCRIT 44.4 % (42.0-52.0); LYMPH # 1.5 10^3/uL (1.5-5.0); LYMPH % 24.7 % (24.0-44.0); MEAN CORPUSCULAR HEMOGLOBIN 31.7 pg (27.0-33.0); MEAN CORPUSCULAR HGB CONC 33.8 g/dl (32.0-36.5); MEAN CORPUSCULAR VOLUME 93.9 fl (80.0-96.0); MONO # 0.4 10^3/uL (0.0-0.8); MONO % 7.3 % (2.0-8.0); NEUTROPHILS # 3.7 10^3/uL (1.5-8.5); NEUTROPHILS % 62.2 % (36.0-66.0); PLATELET COUNT, AUTOMATED 291 10^3/uL (150-450); RED BLOOD COUNT 4.73 10^6/uL (4.30-6.10); WHITE BLOOD COUNT 5.9 10^3/uL (4.0-10.0)
[2021-12-19 09:36] LABS: ALT/SGPT 22 U/L (12-78); BILIRUBIN,TOTAL 0.6 MG/DL (0.2-1.0); BLOOD UREA NITROGEN 12 MG/DL (7-18); CALCIUM LEVEL 9.6 MG/DL (8.5-10.1); CARBON DIOXIDE LEVEL 29 MEQ/L (21-32); CHLORIDE LEVEL 105 MEQ/L (98-107); CHOLESTEROL LEVEL 188 MG/DL (<200); CHOLESTEROL RISK RATIO 3.357 (<5); CREATININE FOR GFR 0.88 MG/DL (0.70-1.30); FERRITIN 74 NG/ML (26-388); FREE T4 0.62 NG/DL (0.76-1.46); GLOMERULAR FILTRATION RATE > 60.0 (>56); GLUCOSE, FASTING 113 MG/DL (70-100); HDL CHOLESTEROL 56 MG/DL (>40); IRON (FE) 135 UG/DL (65-175); LDL CHOLESTEROL 97 MG/DL (<100); NON-HDL-C 132 MG/DL; NT-PRO BNP 471 PG/ML (<125); POTASSIUM SERUM 3.8 MEQ/L (3.5-5.1); SODIUM LEVEL 140 MEQ/L (136-145); TOTAL PROTEIN 7.2 GM/DL (6.4-8.2); TRIGLYCERIDES LEVEL 174 MG/DL (<150)
== END ==
LOC: M LAB 08:34
PROVIDERS: ATTEND Physician Assistant Medical
DX: E78.2 Mixed hyperlipidemia (principal); E03.9 Hypothyroidism, unspecified; I50.9 Heart failure, unspecified; D50.9 Iron deficiency anemia, unspecified; I11.9 Hypertensive heart disease without heart failure

== ENCOUNTER → 2022-01-21 | Outpatient (CLI) | payer OTHER ==
[~2022-01-21] MED LIST changes: +LEVO1TAB39 PO; -LEVO500T4 PO
== END ==
LOC: M LABSMTC 10:57
PROVIDERS: ATTEND Anesthesiology
DX: Z01.812 Encounter for preprocedural laboratory examination (principal)

== ENCOUNTER 2022-01-23 10:00 | Day surgery (SDC) | payer OTHER ==
[~2022-01-23] VITALS: Ht 175.3 cm; Wt 71.6 kg
[~2022-01-23 10:00] MED LIST changes: +NS 1,000 ML IV ONE
[2022-01-23] MEDS ORDERED: propofoL 200 MG/20 ML VIAL As Ordered ONE ×2 (11:57→13:03)
[2022-01-23] MEDS ORDERED: LIDOCAINE 2% 100MG/5ML SDV (FOR ANES.) As Ordered ONE (11:57)
[2022-01-23] MEDS ORDERED: fentaNYL 100 MCG/2 ML INJECTION As Ordered ONE (12:27)
[2022-01-23] MEDS ORDERED: ePHEDrine SULFATE 25 MG/5 ML(5MG/ML) SYRINGE As Ordered ONE (13:03)
[2022-01-23 13:44] VITALS: BP 109/74
== END 2022-01-23 13:45 | disposition home or self-care (01) ==
LOC: M OPP 10:00
PROVIDERS: ATTEND Internal Medicine Gastroenterology
DX: D50.9 Iron deficiency anemia, unspecified (principal); K64.8 Other hemorrhoids; K44.9 Diaphragmatic hernia without obstruction or gangrene; K22.89 Other specified disease of esophagus; K31.89 Other diseases of stomach and duodenum; K29.70 Gastritis, unspecified, without bleeding; I10 Essential (primary) hypertension; E03.9 Hypothyroidism, unspecified; J45.909 Unspecified asthma, uncomplicated; N40.0 Benign prostatic hyperplasia without lower urinary tract symptoms; F17.200 Nicotine dependence, unspecified, uncomplicated; Z79.02 Long term (current) use of antithrombotics/antiplatelets; Z79.51 Long term (current) use of inhaled steroids; Z79.891 Long term (current) use of opiate analgesic; Z79.899 Other long term (current) drug therapy; Z86.73 Personal history of transient ischemic attack (TIA), and cerebral infarction without residual deficits; Z95.818 Presence of other cardiac implants and grafts
CPT/HCPCS: 43239; 45378; 88305; J3010

== ENCOUNTER → 2022-02-23 | Outpatient (CLI) | payer OTHER ==
[~2022-02-23] MED LIST changes: -NS 1,000 ML IV ONE
[2022-02-23 13:51] LABS: BASO # 0.1 10^3/uL (0.0-0.2); BASO % 0.8 % (0.0-1.0); EOS # 0.2 10^3/uL (0.0-0.5); EOS % 3.3 % (0.0-3.0); HEMATOCRIT 40.8 % (42.0-52.0); HEMOGLOBIN 13.6 g/dl (13.5-17.5); LYMPH # 1.6 10^3/uL (1.5-5.0); LYMPH % 25.8 % (24.0-44.0); MEAN CORPUSCULAR HEMOGLOBIN 31.5 pg (27.0-33.0); MEAN CORPUSCULAR HGB CONC 33.3 g/dl (32.0-36.5); MEAN CORPUSCULAR VOLUME 94.4 fl (80.0-96.0); MONO # 0.5 10^3/uL (0.0-0.8); MONO % 7.3 % (2.0-8.0); NEUTROPHILS # 3.9 10^3/uL (1.5-8.5); NEUTROPHILS % 62.3 % (36.0-66.0); PLATELET COUNT, AUTOMATED 292 10^3/uL (150-450); RED BLOOD COUNT 4.32 10^6/uL (4.30-6.10); WHITE BLOOD COUNT 6.3 10^3/uL (4.0-10.0)
[2022-02-23 15:36] LABS: CHOLESTEROL RISK RATIO 3.358 (<5); FREE T4 0.74 NG/DL (0.76-1.46); THYROID STIMULATING HORMONE 3.11 uIU/ML (0.358-3.740)
== END ==
LOC: M LAB 12:44 → M LAB REF 12:44
PROVIDERS: ATTEND Physician Assistant Medical
DX: I10 Essential (primary) hypertension (principal); D50.9 Iron deficiency anemia, unspecified; F41.1 Generalized anxiety disorder; E78.2 Mixed hyperlipidemia

== ENCOUNTER → 2022-03-28 | Outpatient (CLI) | payer OTHER | LOC: M CARPUL 09:48 | PROVIDERS: ATTEND Physician Assistant Medical | DX: J44.9 Chronic obstructive pulmonary disease, unspecified (principal) ==

== ENCOUNTER 2022-05-11 19:02 | Inpatient (IN) | payer OTHER ==
[~2022-05-11] VITALS: Ht 175.3 cm; Wt 70.0 kg
[2022-05-11] VITALS (8 sets, daily range): BP systolic 93–111; BP diastolic 51–59
[~2022-05-11 19:02] MED LIST changes: -PAXI20TA29 PO; +PAXI20TA30 PO
[2022-05-11] MEDS ORDERED: IPRATROPIUM 0.5MG/ALBUTEROL 2.5MG INH SOL UD 3ML (DUONEB) NEB ONE (19:45)
[2022-05-11 19:55] LABS: BASO # 0.1 10^3/uL (0.0-0.2); BASO % 0.2 % (0.0-1.0); EOS # 0.1 10^3/uL (0.0-0.5); EOS % 0.4 % (0.0-3.0); HEMATOCRIT 32.8 % (42.0-52.0); HEMOGLOBIN 10.7 g/dl (13.5-17.5); LYMPH % 4.1 % (24.0-44.0); MEAN CORPUSCULAR HEMOGLOBIN 29.6 pg (27.0-33.0); MEAN CORPUSCULAR HGB CONC 32.6 g/dl (32.0-36.5); MEAN CORPUSCULAR VOLUME 90.6 fl (80.0-96.0); MONO % 7.3 % (2.0-8.0); NEUTROPHILS # 21.7 10^3/uL (1.5-8.5); PLATELET COUNT, AUTOMATED 555 10^3/uL (150-450); RED BLOOD COUNT 3.62 10^6/uL (4.30-6.10); WHITE BLOOD COUNT 24.9 10^3/uL (4.0-10.0)
[2022-05-11 20:10] LABS: ABG HCO3 24.9 MEQ/L (22.0-26.0); ABG O2 SATURATION 90.7 % (95.0-99.0); ABG PARTIAL PRESSURE CO2 41.7 mmHg (35.0-45.0); ABG PARTIAL PRESSURE O2 62.2 mmHg (75.0-100.0); ABG STANDARD HCO3 24.3 MEQ/L (22.0-26.0); ABG TOTAL CO2 26.2 MEQ/L (22.0-29.0); ABG pH (ARTERIAL) 7.394 UNITS (7.350-7.450)
[2022-05-11 20:14] LABS: MONO # 1.8 10^3/uL (0.0-0.8)
[2022-05-11 20:23] LABS: BLOOD UREA NITROGEN 18 MG/DL (9-23); CALCIUM LEVEL 8.8 MG/DL (8.5-10.1); CARBON DIOXIDE LEVEL 24 MMOL/L (20-31); CHLORIDE LEVEL 98 MMOL/L (98-107); CK-MB VALUE MASS 4.5 NG/ML (<3.6); CPK CREATINE PHOSPHOKINASE 261 U/L (46-171); CREATININE FOR GFR 0.85 MG/DL (0.70-1.30); GLOMERULAR FILTRATION RATE > 60.0 (>56); GLUCOSE, FASTING 83 MG/DL (60-100); MB/CK RELATIVE INDEX 1.72 (< OR =4); POTASSIUM SERUM 3.9 MMOL/L (3.5-5.1); SODIUM LEVEL 131 MMOL/L (136-145)
[2022-05-11 20:24] LABS: D-DIMER QUANT 1225.23 ng/ml (<500)
[2022-05-11] MEDS ORDERED: KETOROLAC 30 MG/ML 1ML VIAL IV ONE (21:00)
[2022-05-11] MEDS ORDERED: ISOVUE-370 76% 100ML VIAL As Ordered ONE (21:00)
[2022-05-11 21:30] LABS: CK-MB VALUE MASS 3.6 NG/ML (<3.6)
[2022-05-11 21:31] LABS: MB/CK RELATIVE INDEX 1.42 (< OR =4)
[2022-05-11] MEDS ORDERED: NS IV ONE (21:40)
[2022-05-11] MEDS ORDERED: cefTRIAXone SOD 1 GM in D5W MINI-BAG PLUS 50 ML IV ONE (21:40)
[2022-05-11] MEDS ORDERED: metroNIDAZOLE 500 MG in IV 1 EA IV ONE (21:40)
[2022-05-11] MEDS ORDERED: ONDANSETRON 4MG 2ML VIAL IV PRN (21:45)
[2022-05-11] MEDS ORDERED: ACETAMINOPHEN TAB 650MG DOSE (2X325MG) PO PRN (21:45)
[2022-05-11] MEDS ORDERED: LEVALBUTEROL 1.25MG 0.5ML CONCENTRATE NEB NEB PRN (21:45)
[2022-05-11] MEDS ORDERED: BISACODYL 10MG SUPP PR PRN (21:45)
[2022-05-11] MEDS ORDERED: PERCOCET 5MG/325MG TAB PO PRN ×2 (21:45)
[2022-05-11] MEDS ORDERED: OMEP40CA5 PO (21:54)
[2022-05-11] MEDS ORDERED: ZOLO100T PO (21:54)
[2022-05-11] MEDS ORDERED: FERR325T3 PO (21:54)
[2022-05-11] MEDS ORDERED: HOME MED LIST COMPLETE! XX SCH (21:55)
[2022-05-11] MEDS ORDERED: flumazeniL 0.5MG/5ML VIAL IV PRN (22:10)
[2022-05-11] MEDS: MIDAZOLAM 5MG 5ML VIAL (FOR CHEST TUBE INSERTIONS) IV PRN ×4 (23:02→23:08)
[2022-05-11] MEDS: LIDOCAINE 1% MDV 20ML VIAL SC PRN ×2 (23:07→23:12)
[2022-05-11 23:45] LABS: INR 1.67
[2022-05-12] VITALS (12 sets, daily range): BP systolic 88–113; BP diastolic 50–58; O2SAT 94
[2022-05-12 00:01] LABS: PH BODY FLUID 7.588 UNITS (NOT ESTABLISHED); SOURCE, BODY FLUID pH PLEURAL
[2022-05-12] MEDS ORDERED: UNRESOLVED CLARIFICATION ENTRY XX SCH (00:01)
[2022-05-12 00:23] LABS: SOURCE, BODY FLUID ALBUMIN PLEURAL
[2022-05-12] MEDS ORDERED: IPRATROPIUM 0.5MG/ALBUTEROL 2.5MG INH SOL UD 3ML (DUONEB) NEB PRN (00:25)
[2022-05-12 00:28] LABS: SOURCE, BODY FLUID GLUCOSE PLEURAL; SOURCE, BODY FLUID TRIG PLEURAL; TRIGLYCERIDE, BODY FLUID 57 MG/DL (NOT ESTABLISHED)
[2022-05-12 00:29] LABS: AMYLASE, BODY FLUID 57 U/L (NOT ESTABLISHED); LDH, BODY FLUID 633 U/L (NOT ESTABLISHED); SOURCE, BODY FLUID AMYLASE PLEURAL; SOURCE, BODY FLUID LDH PLEURAL
[2022-05-12 00:30] LABS: APPEARANCE, BODY FLUID CLOUDY (CLEAR); CHOLESTEROL, BODY FLUID 72 MG/DL (NOT ESTABLISHED); PLEURAL FL COLOR YELLOW (COLORLESS); SOURCE, BODY FLUID PLEURAL; SOURCE, BODY FLUID CHOL PLEURAL; SOURCE, BODY FLUID TOT PROTEIN PLEURAL
[2022-05-12] MEDS ORDERED: NS 1,000 ML IV ONE ×2 (00:30→12:20)
[2022-05-12] MEDS: KCL 20MEQ IN D5/NS 1000ML 1,000 ML IV SCH ×2 (01:30→16:44)
[2022-05-12] MEDS: LEVALBUTEROL 1.25MG 0.5ML CONCENTRATE NEB NEB SCH ×4 (03:00→19:53)
[2022-05-12] MEDS: KETOROLAC 30 MG/ML 1ML VIAL IV SCH ×4 (03:13→20:08)
[2022-05-12] MEDS ORDERED: NS 500 ML IV ONE ×2 (03:30→04:20)
[2022-05-12] MEDS ORDERED: HYDROCORTISONE 100 MG/2 ML VIAL (J1720 PER 1) IV ONE (04:00)
[2022-05-12 05:15] LABS: BASO % 0.2 % (0.0-1.0); EOS # 0.1 10^3/uL (0.0-0.5); EOS % 0.5 % (0.0-3.0); HEMATOCRIT 26.9 % (42.0-52.0); HEMOGLOBIN 8.8 g/dl (13.5-17.5); LYMPH # 1.2 10^3/uL (1.5-5.0); LYMPH % 5.9 % (24.0-44.0); MEAN CORPUSCULAR HEMOGLOBIN 30.3 pg (27.0-33.0); MEAN CORPUSCULAR HGB CONC 32.7 g/dl (32.0-36.5); MEAN CORPUSCULAR VOLUME 92.8 fl (80.0-96.0); MONO # 1.3 10^3/uL (0.0-0.8); MONO % 6.5 % (2.0-8.0); NEUTROPHILS # 16.9 10^3/uL (1.5-8.5); NEUTROPHILS % 85.7 % (36.0-66.0); WHITE BLOOD COUNT 19.6 10^3/uL (4.0-10.0)
[2022-05-12 05:17] LABS: PLATELET COUNT, AUTOMATED 425 10^3/uL (150-450)
[2022-05-12 05:21] LABS: BLOOD UREA NITROGEN 14 MG/DL (9-23); CALCIUM LEVEL 7.4 MG/DL (8.5-10.1); CARBON DIOXIDE LEVEL 20 MMOL/L (20-31); CHLORIDE LEVEL 107 MMOL/L (98-107); GLOMERULAR FILTRATION RATE > 60.0 (>56); GLUCOSE, FASTING 102 MG/DL (60-100); POTASSIUM SERUM 3.6 MMOL/L (3.5-5.1); SODIUM LEVEL 137 MMOL/L (136-145)
[2022-05-12] MEDS ORDERED: metroNIDAZOLE (FLAGYL) 500MG TABLET PO SCH (06:00)
[2022-05-12 06:12] LABS: ABG BASE EXCESS -4.8 (-2.0-2.0); ABG HCO3 20.7 MEQ/L (22.0-26.0); ABG O2 SATURATION 95.5 % (95.0-99.0); ABG PARTIAL PRESSURE CO2 39.8 mmHg (35.0-45.0); ABG PARTIAL PRESSURE O2 87.6 mmHg (75.0-100.0); ABG STANDARD HCO3 20.5 MEQ/L (22.0-26.0); ABG TOTAL CO2 21.9 MEQ/L (22.0-29.0); ABG pH (ARTERIAL) 7.334 UNITS (7.350-7.450)
[2022-05-12] MEDS: FERROUS SULFATE 325MG TAB PO SCH (08:56)
[2022-05-12] MEDS: GABAPENTIN 300 MG CAP PO SCH ×3 (08:56→20:10)
[2022-05-12] MEDS: DOCUSATE SODIUM 100MG CAPSULE PO SCH ×2 (08:57→20:10)
[2022-05-12] MEDS: OMEPRAZOLE 20MG CAP PO SCH (08:57)
[2022-05-12] MEDS: DOXYCYCLINE HYCLATE 100MG TABLET PO SCH ×2 (08:57→20:10)
[2022-05-12] MEDS: SERTRALINE 100 MG TAB PO SCH ×3 (08:57→20:10)
[2022-05-12] MEDS: ROSUVASTATIN 10 MG TAB (CRESTOR) PO SCH (08:57)
[2022-05-12] MEDS: PIPERACILLIN/TAZOBACTAM SOD 3.375 GM in D5W MINI-BAG PLUS 50 ML IV SCH ×3 (08:58→20:10)
[2022-05-12] MEDS ORDERED: PANTOPRAZOLE 40MG VIAL IV SCH (09:00)
[2022-05-12] MEDS ORDERED: PANTOPRAZOLE 40MG TAB (PROTONIX) PO SCH (09:00)
[2022-05-12] MEDS ORDERED: HEPARIN SOD (PORCINE) 5000UNITS/ML 1ML VIAL/SYRINGE SC SCH (09:00)
[2022-05-12] MEDS ORDERED: APIXABAN 5 MG TAB (ELIQUIS) PO SCH (09:00)
[2022-05-12] MEDS ORDERED: GABAPENTIN 400MG CAP PO SCH (09:00)
[2022-05-12] MEDS ORDERED: MOM 30ML SUSPENSION UDC PO SCH (09:00)
[2022-05-12] MEDS ORDERED: GABAPENTIN 100 MG CAP PO SCH (09:00)
[2022-05-12] MEDS ORDERED: cefTRIAXone SOD 1 GM in D5W MINI-BAG PLUS 50 ML IV SCH (09:00)
[2022-05-12] MEDS ORDERED: ALTEPLASE 2MG/2ML VIAL XX ONE (09:00)
[2022-05-12 17:58] LABS: HEMATOCRIT 31.1 % (42.0-52.0); HEMOGLOBIN 9.9 g/dl (13.5-17.5); MEAN CORPUSCULAR HEMOGLOBIN 29.8 pg (27.0-33.0); MEAN CORPUSCULAR HGB CONC 31.8 g/dl (32.0-36.5); MEAN CORPUSCULAR VOLUME 93.7 fl (80.0-96.0); PLATELET COUNT, AUTOMATED 474 10^3/uL (150-450); RED BLOOD COUNT 3.32 10^6/uL (4.30-6.10); WHITE BLOOD COUNT 23.8 10^3/uL (4.0-10.0)
[2022-05-12] MEDS: APIXABAN 5 MG TAB (ELIQUIS) PO SCH (20:10)
[2022-05-12] MEDS ORDERED: METHADONE 10MG TAB PO ONE (21:00)
[2022-05-13] VITALS (23 sets, daily range): BP systolic 98–127; BP diastolic 54–76; O2SAT 81–96
[2022-05-13] MEDS: PIPERACILLIN/TAZOBACTAM SOD 3.375 GM in D5W MINI-BAG PLUS 50 ML IV SCH ×4 (01:49→20:24)
[2022-05-13] MEDS: KETOROLAC 30 MG/ML 1ML VIAL IV SCH ×4 (01:50→20:25)
[2022-05-13] MEDS: LEVALBUTEROL 1.25MG 0.5ML CONCENTRATE NEB NEB SCH ×4 (01:53→20:22)
[2022-05-13] MEDS: KCL 20MEQ IN D5/NS 1000ML 1,000 ML IV SCH ×2 (03:47→16:08)
[2022-05-13 05:32] LABS: BASO # 0.1 10^3/uL (0.0-0.2); BASO % 0.2 % (0.0-1.0); EOS # 0.2 10^3/uL (0.0-0.5); EOS % 0.7 % (0.0-3.0); HEMATOCRIT 34.4 % (42.0-52.0); HEMOGLOBIN 10.8 g/dl (13.5-17.5); LYMPH # 1.2 10^3/uL (1.5-5.0); LYMPH % 5.4 % (24.0-44.0); MEAN CORPUSCULAR HEMOGLOBIN 29.4 pg (27.0-33.0); MEAN CORPUSCULAR HGB CONC 31.4 g/dl (32.0-36.5); MEAN CORPUSCULAR VOLUME 93.7 fl (80.0-96.0); MONO # 1.4 10^3/uL (0.0-0.8); MONO % 6.2 % (2.0-8.0); NEUTROPHILS # 19.5 10^3/uL (1.5-8.5); PLATELET COUNT, AUTOMATED 499 10^3/uL (150-450); RED BLOOD COUNT 3.67 10^6/uL (4.30-6.10); WHITE BLOOD COUNT 22.7 10^3/uL (4.0-10.0)
[2022-05-13 05:49] LABS: ALKALINE PHOSPHATASE 102 U/L (46-116); ALT/SGPT 49 U/L (7.0-40); AST/SGOT 61 U/L (<34); BILIRUBIN,TOTAL < 0.2 MG/DL (0.3-1.2); BLOOD UREA NITROGEN 8 MG/DL (9-23); CARBON DIOXIDE LEVEL 22 MMOL/L (20-31); CHLORIDE LEVEL 107 MMOL/L (98-107); CREATININE FOR GFR 0.82 MG/DL (0.70-1.30); GLOMERULAR FILTRATION RATE > 60.0 (>56); GLUCOSE, FASTING 116 MG/DL (60-100); POTASSIUM SERUM 3.6 MMOL/L (3.5-5.1); SODIUM LEVEL 135 MMOL/L (136-145); TOTAL PROTEIN 5.7 G/DL (5.7-8.2)
[2022-05-13] MEDS: APIXABAN 5 MG TAB (ELIQUIS) PO SCH ×2 (09:08→20:25)
[2022-05-13] MEDS: DOCUSATE SODIUM 100MG CAPSULE PO SCH ×2 (09:08→20:25)
[2022-05-13] MEDS: FERROUS SULFATE 325MG TAB PO SCH (09:09)
[2022-05-13] MEDS: ROSUVASTATIN 10 MG TAB (CRESTOR) PO SCH (09:09)
[2022-05-13] MEDS: GABAPENTIN 300 MG CAP PO SCH ×3 (09:09→20:25)
[2022-05-13] MEDS: OMEPRAZOLE 20MG CAP PO SCH (09:09)
[2022-05-13] MEDS: DOXYCYCLINE HYCLATE 100MG TABLET PO SCH ×2 (09:09→20:25)
[2022-05-13] MEDS: SERTRALINE 100 MG TAB PO SCH ×3 (09:09→20:25)
[2022-05-13] MEDS: METHADONE 10MG TAB PO SCH (20:51)
[2022-05-13] MEDS ORDERED: guaiFENesin SYRUP 200MG 10ML UDC PO PRN (22:20)
[2022-05-14] VITALS (33 sets, daily range): BP systolic 89–125; BP diastolic 55–77; O2SAT 84–97
[2022-05-14] MEDS: LEVALBUTEROL 1.25MG 0.5ML CONCENTRATE NEB NEB SCH ×4 (02:19→19:59)
[2022-05-14] MEDS: KETOROLAC 30 MG/ML 1ML VIAL IV SCH ×4 (02:24→20:31)
[2022-05-14] MEDS: PIPERACILLIN/TAZOBACTAM SOD 3.375 GM in D5W MINI-BAG PLUS 50 ML IV SCH ×4 (02:24→20:30)
[2022-05-14] MEDS: KCL 20MEQ IN D5/NS 1000ML 1,000 ML IV SCH (05:00)
[2022-05-14 06:01] LABS: BASO # 0.1 10^3/uL (0.0-0.2); BASO % 0.4 % (0.0-1.0); EOS # 0.4 10^3/uL (0.0-0.5); EOS % 2.1 % (0.0-3.0); HEMATOCRIT 29.5 % (42.0-52.0); HEMOGLOBIN 9.4 g/dl (13.5-17.5); LYMPH # 1.5 10^3/uL (1.5-5.0); LYMPH % 8.1 % (24.0-44.0); MEAN CORPUSCULAR HEMOGLOBIN 29.7 pg (27.0-33.0); MEAN CORPUSCULAR HGB CONC 31.9 g/dl (32.0-36.5); MEAN CORPUSCULAR VOLUME 93.4 fl (80.0-96.0); MONO # 0.5 10^3/uL (0.0-0.8); MONO % 2.9 % (2.0-8.0); NEUTROPHILS # 16.1 10^3/uL (1.5-8.5); NEUTROPHILS % 85.3 % (36.0-66.0); PLATELET COUNT, AUTOMATED 492 10^3/uL (150-450); RED BLOOD COUNT 3.16 10^6/uL (4.30-6.10); WHITE BLOOD COUNT 18.9 10^3/uL (4.0-10.0)
[2022-05-14 06:35] LABS: ALBUMIN 1.5 G/DL (3.2-5.2); ALKALINE PHOSPHATASE 110 U/L (46-116); ALT/SGPT 39 U/L (7.0-40); AST/SGOT 65 U/L (<34); BILIRUBIN,TOTAL 0.2 MG/DL (0.3-1.2); BLOOD UREA NITROGEN 8 MG/DL (9-23); CALCIUM LEVEL 7.2 MG/DL (8.5-10.1); CARBON DIOXIDE LEVEL 20 MMOL/L (20-31); CHLORIDE LEVEL 108 MMOL/L (98-107); CREATININE FOR GFR 0.71 MG/DL (0.70-1.30); GLOMERULAR FILTRATION RATE > 60.0 (>56); GLUCOSE, FASTING 75 MG/DL (60-100); SODIUM LEVEL 138 MMOL/L (136-145); TOTAL PROTEIN 4.7 G/DL (5.7-8.2)
[2022-05-14] MEDS: GABAPENTIN 300 MG CAP PO SCH ×3 (09:17→20:31)
[2022-05-14] MEDS: OMEPRAZOLE 20MG CAP PO SCH (09:17)
[2022-05-14] MEDS: ROSUVASTATIN 10 MG TAB (CRESTOR) PO SCH (09:17)
[2022-05-14] MEDS: FERROUS SULFATE 325MG TAB PO SCH (09:18)
[2022-05-14] MEDS: DOCUSATE SODIUM 100MG CAPSULE PO SCH ×2 (09:18→20:31)
[2022-05-14] MEDS: DOXYCYCLINE HYCLATE 100MG TABLET PO SCH ×2 (09:18→20:31)
[2022-05-14] MEDS: APIXABAN 5 MG TAB (ELIQUIS) PO SCH ×2 (09:18→20:31)
[2022-05-14] MEDS: SERTRALINE 100 MG TAB PO SCH ×3 (09:18→20:31)
[2022-05-14] MEDS ORDERED: ALBUTEROL 90 MCG/ACT 8GM HFA INHALER INH PRN (09:25)
[2022-05-14] MEDS ORDERED: methylPREDNISolone 125MG 2ML VIAL IV ONE (09:25)
[2022-05-14] MEDS ORDERED: FUROSEMIDE 40MG/4ML VIAL IV ONE (09:55)
[2022-05-14] MEDS ORDERED: FUROSEMIDE 40MG/4ML VIAL As Ordered ONE (09:55)
[2022-05-14] MEDS ORDERED: ALTEPLASE 2MG/2ML VIAL XX ONE (10:00)
[2022-05-14 10:17] LABS: ABG BASE EXCESS -5.2 (-2.0-2.0); ABG HCO3 20.5 MEQ/L (22.0-26.0); ABG O2 SATURATION 93.6 % (95.0-99.0); ABG PARTIAL PRESSURE CO2 40.5 mmHg (35.0-45.0); ABG PARTIAL PRESSURE O2 73.4 mmHg (75.0-100.0); ABG STANDARD HCO3 20.1 MEQ/L (22.0-26.0); ABG TOTAL CO2 21.7 MEQ/L (22.0-29.0); ABG pH (ARTERIAL) 7.322 UNITS (7.350-7.450)
[2022-05-14] MEDS: IPRATROPIUM 0.02% SOLN 0.5MG 2.5ML NEB INH SCH ×2 (13:50→19:59)
[2022-05-14 16:08] LABS: MYCOPLASMA PNEUMONIAE IgG 2080 U/mL (0-99); MYCOPLASMA PNEUMONIAE IgM <770 U/mL (0-769)
[2022-05-14] MEDS ORDERED: PERCOCET 5MG/325MG TAB PO ONE (17:00)
[2022-05-14] MEDS ORDERED: methylPREDNISolone 125MG 2ML VIAL IV SCH (17:00)
[2022-05-14] MEDS: FUROSEMIDE 20MG/2ML VIAL IV SCH (17:28)
[2022-05-14] MEDS: methylPREDNISolone 125MG 2ML VIAL IV SCH (17:28)
[2022-05-14] MEDS: METHADONE 10MG TAB PO SCH (20:32)
[2022-05-15] VITALS: BP 106/60
[2022-05-15] MEDS: methylPREDNISolone 125MG 2ML VIAL IV SCH ×3 (01:45→16:13)
[2022-05-15] MEDS: PIPERACILLIN/TAZOBACTAM SOD 3.375 GM in D5W MINI-BAG PLUS 50 ML IV SCH ×4 (01:45→20:30)
[2022-05-15] MEDS: IPRATROPIUM 0.02% SOLN 0.5MG 2.5ML NEB INH SCH ×4 (02:27→19:09)
[2022-05-15] MEDS: LEVALBUTEROL 1.25MG 0.5ML CONCENTRATE NEB NEB SCH ×4 (02:27→19:09)
[2022-05-15] MEDS: KETOROLAC 30 MG/ML 1ML VIAL IV SCH ×4 (03:35→20:30)
[2022-05-15 04:00] VITALS: BP 113/59
[2022-05-15 05:23] LABS: BASO % 0.1 % (0.0-1.0); HEMATOCRIT 26.6 % (42.0-52.0); HEMOGLOBIN 8.7 g/dl (13.5-17.5); LYMPH # 0.6 10^3/uL (1.5-5.0); LYMPH % 3.1 % (24.0-44.0); MEAN CORPUSCULAR HEMOGLOBIN 30.2 pg (27.0-33.0); MEAN CORPUSCULAR HGB CONC 32.7 g/dl (32.0-36.5); MEAN CORPUSCULAR VOLUME 92.4 fl (80.0-96.0); MONO # 0.5 10^3/uL (0.0-0.8); MONO % 2.4 % (2.0-8.0); NEUTROPHILS % 93.6 % (36.0-66.0); PLATELET COUNT, AUTOMATED 463 10^3/uL (150-450); RED BLOOD COUNT 2.88 10^6/uL (4.30-6.10); WHITE BLOOD COUNT 20.3 10^3/uL (4.0-10.0)
[2022-05-15 06:09] LABS: ALBUMIN 1.5 G/DL (3.2-5.2); ALKALINE PHOSPHATASE 163 U/L (46-116); ALT/SGPT 88 U/L (7.0-40); AST/SGOT 210 U/L (<34); BILIRUBIN,TOTAL 0.2 MG/DL (0.3-1.2); BLOOD UREA NITROGEN 14 MG/DL (9-23); CALCIUM LEVEL 7.3 MG/DL (8.5-10.1); CARBON DIOXIDE LEVEL 27 MMOL/L (20-31); CHLORIDE LEVEL 101 MMOL/L (98-107); CREATININE FOR GFR 0.79 MG/DL (0.70-1.30); GLOMERULAR FILTRATION RATE > 60.0 (>56); GLUCOSE, FASTING 160 MG/DL (60-100); POTASSIUM SERUM 3.3 MMOL/L (3.5-5.1); SODIUM LEVEL 139 MMOL/L (136-145)
[2022-05-15] MEDS ORDERED: POTASSIUM CHLORIDE 10MEQ SR TABLET PO ONE (07:45)
[2022-05-15 08:00] VITALS: BP 102/55
[2022-05-15] MEDS: FUROSEMIDE 20MG/2ML VIAL IV SCH ×2 (09:17→16:13)
[2022-05-15] MEDS: DOCUSATE SODIUM 100MG CAPSULE PO SCH ×2 (09:18→20:32)
[2022-05-15] MEDS: GABAPENTIN 300 MG CAP PO SCH ×3 (09:18→20:32)
[2022-05-15] MEDS: ROSUVASTATIN 10 MG TAB (CRESTOR) PO SCH (09:19)
[2022-05-15] MEDS: OMEPRAZOLE 20MG CAP PO SCH (09:19)
[2022-05-15] MEDS: FERROUS SULFATE 325MG TAB PO SCH (09:20)
[2022-05-15] MEDS: SERTRALINE 100 MG TAB PO SCH ×3 (09:20→20:32)
[2022-05-15] MEDS: APIXABAN 5 MG TAB (ELIQUIS) PO SCH ×2 (09:20→20:32)
[2022-05-15] MEDS: DOXYCYCLINE HYCLATE 100MG TABLET PO SCH ×2 (09:21→20:32)
[2022-05-15 12:00] VITALS: BP 112/69
[2022-05-15 16:00] VITALS: BP 94/52
[2022-05-15 20:00] VITALS: BP 111/59
[2022-05-15] MEDS: METHADONE 10MG TAB PO SCH (20:31)
[2022-05-16] VITALS: BP 111/62
[2022-05-16] MEDS: methylPREDNISolone 125MG 2ML VIAL IV SCH (00:30)
[2022-05-16] MEDS: IPRATROPIUM 0.02% SOLN 0.5MG 2.5ML NEB INH SCH ×4 (00:53→19:13)
[2022-05-16] MEDS: LEVALBUTEROL 1.25MG 0.5ML CONCENTRATE NEB NEB SCH ×4 (00:53→19:13)
[2022-05-16] MEDS: PIPERACILLIN/TAZOBACTAM SOD 3.375 GM in D5W MINI-BAG PLUS 50 ML IV SCH ×2 (02:51→08:11)
[2022-05-16] MEDS: KETOROLAC 30 MG/ML 1ML VIAL IV SCH ×2 (02:51→08:12)
[2022-05-16 04:00] VITALS: BP 100/64
[2022-05-16 05:31] LABS: BASO % 0.1 % (0.0-1.0); HEMATOCRIT 26.5 % (42.0-52.0); HEMOGLOBIN 8.6 g/dl (13.5-17.5); LYMPH % 4.4 % (24.0-44.0); MEAN CORPUSCULAR HGB CONC 32.5 g/dl (32.0-36.5); MEAN CORPUSCULAR VOLUME 92.3 fl (80.0-96.0); MONO # 0.6 10^3/uL (0.0-0.8); MONO % 2.5 % (2.0-8.0); NEUTROPHILS # 20.4 10^3/uL (1.5-8.5); NEUTROPHILS % 92.1 % (36.0-66.0); PLATELET COUNT, AUTOMATED 492 10^3/uL (150-450); RED BLOOD COUNT 2.87 10^6/uL (4.30-6.10); WHITE BLOOD COUNT 22.1 10^3/uL (4.0-10.0)
[2022-05-16 05:59] LABS: MAGNESIUM LEVEL 1.8 MG/DL (1.8-2.4)
[2022-05-16 06:01] LABS: ALBUMIN 1.5 G/DL (3.2-5.2); ALKALINE PHOSPHATASE 174 U/L (46-116); ALT/SGPT 388 U/L (7.0-40); AST/SGOT 939 U/L (<34); BILIRUBIN,TOTAL 0.2 MG/DL (0.3-1.2); BLOOD UREA NITROGEN 14 MG/DL (9-23); CALCIUM LEVEL 7.6 MG/DL (8.5-10.1); CARBON DIOXIDE LEVEL 34 MMOL/L (20-31); CHLORIDE LEVEL 100 MMOL/L (98-107); CREATININE FOR GFR 0.76 MG/DL (0.70-1.30); GLOMERULAR FILTRATION RATE > 60.0 (>56); GLUCOSE, FASTING 99 MG/DL (60-100); POTASSIUM SERUM 3.6 MMOL/L (3.5-5.1); SODIUM LEVEL 140 MMOL/L (136-145); TOTAL PROTEIN 5.1 G/DL (5.7-8.2)
[2022-05-16 08:00] VITALS: BP 113/61
[2022-05-16] MEDS: OMEPRAZOLE 20MG CAP PO SCH (08:12)
[2022-05-16] MEDS: ROSUVASTATIN 10 MG TAB (CRESTOR) PO SCH (08:12)
[2022-05-16] MEDS: GABAPENTIN 300 MG CAP PO SCH ×3 (08:12→20:38)
[2022-05-16] MEDS: DOXYCYCLINE HYCLATE 100MG TABLET PO SCH (08:13)
[2022-05-16] MEDS: SERTRALINE 100 MG TAB PO SCH ×3 (08:13→20:39)
[2022-05-16] MEDS: DOCUSATE SODIUM 100MG CAPSULE PO SCH ×2 (08:13→20:38)
[2022-05-16] MEDS: APIXABAN 5 MG TAB (ELIQUIS) PO SCH ×2 (08:13→20:39)
[2022-05-16] MEDS: FERROUS SULFATE 325MG TAB PO SCH (08:17)
[2022-05-16] MEDS ORDERED: methylPREDNISolone 40MG 1ML VIAL IV SCH (09:00)
[2022-05-16 12:00] VITALS: BP 114/57
[2022-05-16 12:12] LABS: HEPATITIS B SURFACE ANTIGEN NEGATIVE (NEGATIVE)
[2022-05-16 12:34] LABS: HEPATITIS B CORE ANTIBODY IGM NEGATIVE (NEGATIVE); HEPATITIS C VIRUS ABY INDEX 0.1 INDEX (<0.8)
[2022-05-16] MEDS: AUGMENTIN 875 MG TAB PO SCH ×2 (14:57→20:39)
[2022-05-16 16:00] VITALS: BP 104/64
[2022-05-16 20:00] VITALS: BP 98/54
[2022-05-16] MEDS: METHADONE 10MG TAB PO SCH (20:38)
[2022-05-16] MEDS: methylPREDNISolone 40MG 1ML VIAL IV SCH (20:38)
[2022-05-17] VITALS (10 sets, daily range): BP systolic 107–122; BP diastolic 57–76; O2SAT 87–97
[2022-05-17] MEDS: IPRATROPIUM 0.02% SOLN 0.5MG 2.5ML NEB INH SCH ×4 (01:09→20:14)
[2022-05-17] MEDS: LEVALBUTEROL 1.25MG 0.5ML CONCENTRATE NEB NEB SCH ×4 (01:09→20:14)
[2022-05-17 06:01] LABS: BASO % 0.1 % (0.0-1.0); EOS % 0.1 % (0.0-3.0); HEMATOCRIT 29.1 % (42.0-52.0); HEMOGLOBIN 9.2 g/dl (13.5-17.5); LYMPH # 1.6 10^3/uL (1.5-5.0); MEAN CORPUSCULAR HEMOGLOBIN 30.2 pg (27.0-33.0); MEAN CORPUSCULAR HGB CONC 31.6 g/dl (32.0-36.5); MEAN CORPUSCULAR VOLUME 95.4 fl (80.0-96.0); MONO # 0.4 10^3/uL (0.0-0.8); MONO % 2.9 % (2.0-8.0); NEUTROPHILS # 11.4 10^3/uL (1.5-8.5); NEUTROPHILS % 83.8 % (36.0-66.0); PLATELET COUNT, AUTOMATED 399 10^3/uL (150-450); RED BLOOD COUNT 3.05 10^6/uL (4.30-6.10); WHITE BLOOD COUNT 13.6 10^3/uL (4.0-10.0)
[2022-05-17 06:22] LABS: ALBUMIN 1.5 G/DL (3.2-5.2); ALKALINE PHOSPHATASE 188 U/L (46-116); ALT/SGPT 456 U/L (7.0-40); AST/SGOT 799 U/L (<34); BILIRUBIN,TOTAL 0.2 MG/DL (0.3-1.2); BLOOD UREA NITROGEN 14 MG/DL (9-23); CARBON DIOXIDE LEVEL 34 MMOL/L (20-31); CHLORIDE LEVEL 100 MMOL/L (98-107); CREATININE FOR GFR 0.63 MG/DL (0.70-1.30); GLOMERULAR FILTRATION RATE > 60.0 (>56); GLUCOSE, FASTING 84 MG/DL (60-100); POTASSIUM SERUM 4.1 MMOL/L (3.5-5.1); SODIUM LEVEL 140 MMOL/L (136-145)
[2022-05-17] MEDS: methylPREDNISolone 40MG 1ML VIAL IV SCH ×2 (08:06→20:45)
[2022-05-17] MEDS: OMEPRAZOLE 20MG CAP PO SCH (08:07)
[2022-05-17] MEDS: FERROUS SULFATE 325MG TAB PO SCH (08:07)
[2022-05-17] MEDS: DOCUSATE SODIUM 100MG CAPSULE PO SCH ×2 (08:07→20:45)
[2022-05-17] MEDS: GABAPENTIN 300 MG CAP PO SCH ×3 (08:07→20:45)
[2022-05-17] MEDS: AUGMENTIN 875 MG TAB PO SCH ×2 (08:07→20:45)
[2022-05-17] MEDS: SERTRALINE 100 MG TAB PO SCH ×3 (08:08→20:46)
[2022-05-17] MEDS: APIXABAN 5 MG TAB (ELIQUIS) PO SCH ×2 (08:08→20:46)
[2022-05-17 09:08] LABS: CHLAMYDIA PNEUMONIAE IgG <1:100 (< 1:100); CHLAMYDIA PNEUMONIAE IgM <1:10 (< 1:10); CHLAMYDIA PSITTACI IgG <1:100 (< 1:100); CHLAMYDIA PSITTACI IgM <1:10 (< 1:10); CHLAMYDIA TRACHOMATIS IgG <1:100 (< 1:100); CHLAMYDIA TRACHOMATIS IgM <1:10 (< 1:10)
[2022-05-17] MEDS: METHADONE 10MG TAB PO SCH (21:10)
[2022-05-18] VITALS (14 sets, daily range): BP systolic 98–121; BP diastolic 60–89; O2SAT 89–97
[2022-05-18] MEDS: IPRATROPIUM 0.02% SOLN 0.5MG 2.5ML NEB INH SCH ×4 (02:48→19:35)
[2022-05-18] MEDS: LEVALBUTEROL 1.25MG 0.5ML CONCENTRATE NEB NEB SCH ×4 (02:48→19:35)
[2022-05-18 05:19] LABS: MAGNESIUM LEVEL 1.9 MG/DL (1.8-2.4)
[2022-05-18 05:24] LABS: ALBUMIN 1.6 G/DL (3.2-5.2); ALKALINE PHOSPHATASE 158 U/L (46-116); ALT/SGPT 341 U/L (7.0-40); AST/SGOT 329 U/L (<34); BILIRUBIN,TOTAL 0.2 MG/DL (0.3-1.2); BLOOD UREA NITROGEN 15 MG/DL (9-23); CARBON DIOXIDE LEVEL 28 MMOL/L (20-31); CHLORIDE LEVEL 99 MMOL/L (98-107); CREATININE FOR GFR 0.59 MG/DL (0.70-1.30); GLOMERULAR FILTRATION RATE > 60.0 (>56); GLUCOSE, FASTING 78 MG/DL (60-100); POTASSIUM SERUM 5.9 MMOL/L (3.5-5.1); SODIUM LEVEL 134 MMOL/L (136-145); TOTAL PROTEIN 5.2 G/DL (5.7-8.2)
[2022-05-18 08:34] LABS: BASO % 0.1 % (0.0-1.0); EOS # 0.3 10^3/uL (0.0-0.5); EOS % 2.1 % (0.0-3.0); HEMATOCRIT 35.1 % (42.0-52.0); LYMPH # 2.3 10^3/uL (1.5-5.0); LYMPH % 16.9 % (24.0-44.0); MEAN CORPUSCULAR HEMOGLOBIN 29.4 pg (27.0-33.0); MEAN CORPUSCULAR HGB CONC 31.3 g/dl (32.0-36.5); MEAN CORPUSCULAR VOLUME 93.9 fl (80.0-96.0); MONO # 0.4 10^3/uL (0.0-0.8); MONO % 3.1 % (2.0-8.0); NEUTROPHILS # 10.3 10^3/uL (1.5-8.5); NEUTROPHILS % 75.7 % (36.0-66.0); PLATELET COUNT, AUTOMATED 523 10^3/uL (150-450); RED BLOOD COUNT 3.74 10^6/uL (4.30-6.10); WHITE BLOOD COUNT 13.7 10^3/uL (4.0-10.0)
[2022-05-18 08:49] LABS: BLOOD UREA NITROGEN 14 MG/DL (9-23); CALCIUM LEVEL 8.8 MG/DL (8.5-10.1); CARBON DIOXIDE LEVEL 32 MMOL/L (20-31); CHLORIDE LEVEL 98 MMOL/L (98-107); CREATININE FOR GFR 0.62 MG/DL (0.70-1.30); GLOMERULAR FILTRATION RATE > 60.0 (>56); GLUCOSE, FASTING 64 MG/DL (60-100); POTASSIUM SERUM 4.8 MMOL/L (3.5-5.1); SODIUM LEVEL 136 MMOL/L (136-145)
[2022-05-18] MEDS: GABAPENTIN 300 MG CAP PO SCH ×3 (09:16→21:15)
[2022-05-18] MEDS: FERROUS SULFATE 325MG TAB PO SCH (09:16)
[2022-05-18] MEDS: AUGMENTIN 875 MG TAB PO SCH ×2 (09:17→21:15)
[2022-05-18] MEDS: SERTRALINE 100 MG TAB PO SCH ×3 (09:18→21:15)
[2022-05-18] MEDS: OMEPRAZOLE 20MG CAP PO SCH (09:18)
[2022-05-18] MEDS: DOCUSATE SODIUM 100MG CAPSULE PO SCH ×2 (09:18→21:14)
[2022-05-18] MEDS: APIXABAN 5 MG TAB (ELIQUIS) PO SCH ×2 (09:18→21:15)
[2022-05-18] MEDS: methylPREDNISolone 40MG 1ML VIAL IV SCH (09:18)
[2022-05-18 21:04] LABS: RHEUMATOID FACTOR QUANT < 3.5 IU/ML (<14)
[2022-05-18] MEDS: METHADONE 10MG TAB PO SCH (21:14)
[2022-05-19] VITALS: BP 114/64
[2022-05-19] MEDS: IPRATROPIUM 0.02% SOLN 0.5MG 2.5ML NEB INH SCH ×4 (03:06→19:20)
[2022-05-19] MEDS: LEVALBUTEROL 1.25MG 0.5ML CONCENTRATE NEB NEB SCH ×4 (03:06→19:21)
[2022-05-19 04:31] VITALS: BP 105/81
[2022-05-19 07:58] LABS: BASO % 0.1 % (0.0-1.0); EOS # 0.4 10^3/uL (0.0-0.5); EOS % 3.1 % (0.0-3.0); HEMATOCRIT 31.1 % (42.0-52.0); HEMOGLOBIN 9.9 g/dl (13.5-17.5); LYMPH # 1.8 10^3/uL (1.5-5.0); LYMPH % 13.2 % (24.0-44.0); MEAN CORPUSCULAR HEMOGLOBIN 29.5 pg (27.0-33.0); MEAN CORPUSCULAR HGB CONC 31.8 g/dl (32.0-36.5); MEAN CORPUSCULAR VOLUME 92.6 fl (80.0-96.0); MONO # 0.6 10^3/uL (0.0-0.8); MONO % 4.3 % (2.0-8.0); NEUTROPHILS # 10.5 10^3/uL (1.5-8.5); NEUTROPHILS % 76.1 % (36.0-66.0); PLATELET COUNT, AUTOMATED 431 10^3/uL (150-450); RED BLOOD COUNT 3.36 10^6/uL (4.30-6.10); WHITE BLOOD COUNT 13.8 10^3/uL (4.0-10.0)
[2022-05-19 08:00] VITALS: BP 100/56
[2022-05-19 08:23] LABS: MAGNESIUM LEVEL 1.9 MG/DL (1.8-2.4)
[2022-05-19 08:25] LABS: ALBUMIN 1.6 G/DL (3.2-5.2); ALKALINE PHOSPHATASE 146 U/L (46-116); ALT/SGPT 226 U/L (7.0-40); AST/SGOT 125 U/L (<34); BILIRUBIN,TOTAL 0.2 MG/DL (0.3-1.2); BLOOD UREA NITROGEN 12 MG/DL (9-23); CALCIUM LEVEL 7.8 MG/DL (8.5-10.1); CARBON DIOXIDE LEVEL 29 MMOL/L (20-31); CHLORIDE LEVEL 98 MMOL/L (98-107); CREATININE FOR GFR 0.63 MG/DL (0.70-1.30); GLOMERULAR FILTRATION RATE > 60.0 (>56); GLUCOSE, FASTING 63 MG/DL (60-100); POTASSIUM SERUM 4.4 MMOL/L (3.5-5.1); SODIUM LEVEL 136 MMOL/L (136-145); TOTAL PROTEIN 5.1 G/DL (5.7-8.2)
[2022-05-19] MEDS: GABAPENTIN 300 MG CAP PO SCH ×3 (09:12→20:20)
[2022-05-19] MEDS: FERROUS SULFATE 325MG TAB PO SCH (09:12)
[2022-05-19] MEDS: APIXABAN 5 MG TAB (ELIQUIS) PO SCH ×2 (09:12→20:20)
[2022-05-19] MEDS: DOCUSATE SODIUM 100MG CAPSULE PO SCH ×2 (09:13→20:20)
[2022-05-19] MEDS: OMEPRAZOLE 20MG CAP PO SCH (09:13)
[2022-05-19] MEDS: AUGMENTIN 875 MG TAB PO SCH ×2 (09:13→20:19)
[2022-05-19] MEDS: methylPREDNISolone 40MG 1ML VIAL IV SCH (09:18)
[2022-05-19] MEDS: SERTRALINE 100 MG TAB PO SCH ×3 (09:22→20:20)
[2022-05-19 12:00] VITALS: BP 112/60
[2022-05-19 16:00] VITALS: BP 106/58
[2022-05-19 20:00] VITALS: BP 96/54
[2022-05-19] MEDS: METHADONE 10MG TAB PO SCH (20:19)
[2022-05-20] VITALS (22 sets, daily range): BP systolic 98–116; BP diastolic 54–78; O2SAT 87–96
[2022-05-20] MEDS: LEVALBUTEROL 1.25MG 0.5ML CONCENTRATE NEB NEB SCH ×4 (03:18→19:30)
[2022-05-20] MEDS: IPRATROPIUM 0.02% SOLN 0.5MG 2.5ML NEB INH SCH ×4 (03:18→19:30)
[2022-05-20 05:39] LABS: BASO % 0.2 % (0.0-1.0); EOS # 0.4 10^3/uL (0.0-0.5); EOS % 3.1 % (0.0-3.0); HEMOGLOBIN 10.7 g/dl (13.5-17.5); LYMPH # 1.8 10^3/uL (1.5-5.0); LYMPH % 14.3 % (24.0-44.0); MEAN CORPUSCULAR HEMOGLOBIN 29.8 pg (27.0-33.0); MEAN CORPUSCULAR HGB CONC 31.5 g/dl (32.0-36.5); MEAN CORPUSCULAR VOLUME 94.7 fl (80.0-96.0); MONO # 0.6 10^3/uL (0.0-0.8); MONO % 4.5 % (2.0-8.0); NEUTROPHILS # 9.1 10^3/uL (1.5-8.5); NEUTROPHILS % 73.5 % (36.0-66.0); PLATELET COUNT, AUTOMATED 375 10^3/uL (150-450); RED BLOOD COUNT 3.59 10^6/uL (4.30-6.10); WHITE BLOOD COUNT 12.4 10^3/uL (4.0-10.0)
[2022-05-20 06:15] LABS: ALBUMIN 2.1 G/DL (3.2-5.2); ALKALINE PHOSPHATASE 130 U/L (46-116); ALT/SGPT 164 U/L (7.0-40); AST/SGOT 73 U/L (<34); BILIRUBIN,TOTAL 0.3 MG/DL (0.3-1.2); BLOOD UREA NITROGEN 7 MG/DL (9-23); CALCIUM LEVEL 8.5 MG/DL (8.5-10.1); CARBON DIOXIDE LEVEL 27 MMOL/L (20-31); CHLORIDE LEVEL 97 MMOL/L (98-107); CREATININE FOR GFR 0.62 MG/DL (0.70-1.30); GLOMERULAR FILTRATION RATE > 60.0 (>56); GLUCOSE, FASTING 63 MG/DL (60-100); POTASSIUM SERUM 4.2 MMOL/L (3.5-5.1); SODIUM LEVEL 134 MMOL/L (136-145); TOTAL PROTEIN 5.9 G/DL (5.7-8.2)
[2022-05-20] MEDS: DOCUSATE SODIUM 100MG CAPSULE PO SCH ×2 (07:56→20:10)
[2022-05-20] MEDS: GABAPENTIN 300 MG CAP PO SCH ×3 (07:56→20:10)
[2022-05-20] MEDS: FERROUS SULFATE 325MG TAB PO SCH (07:57)
[2022-05-20] MEDS: SERTRALINE 100 MG TAB PO SCH ×3 (07:57→20:11)
[2022-05-20] MEDS: APIXABAN 5 MG TAB (ELIQUIS) PO SCH ×2 (07:57→20:11)
[2022-05-20] MEDS: methylPREDNISolone 40MG 1ML VIAL IV SCH (07:57)
[2022-05-20] MEDS: AUGMENTIN 875 MG TAB PO SCH ×2 (07:57→20:10)
[2022-05-20] MEDS: OMEPRAZOLE 20MG CAP PO SCH (07:57)
[2022-05-20] MEDS: METHADONE 10MG TAB PO SCH (20:10)
[2022-05-21] VITALS (10 sets, daily range): BP systolic 101–116; BP diastolic 59–60; O2SAT 89–97
[2022-05-21] MEDS: LEVALBUTEROL 1.25MG 0.5ML CONCENTRATE NEB NEB SCH ×2 (01:24→07:58)
[2022-05-21] MEDS: IPRATROPIUM 0.02% SOLN 0.5MG 2.5ML NEB INH SCH ×2 (01:25→07:58)
[2022-05-21] MEDS: SERTRALINE 100 MG TAB PO SCH (08:20)
[2022-05-21] MEDS: OMEPRAZOLE 20MG CAP PO SCH (08:20)
[2022-05-21] MEDS: DOCUSATE SODIUM 100MG CAPSULE PO SCH (08:20)
[2022-05-21] MEDS: AUGMENTIN 875 MG TAB PO SCH (08:20)
[2022-05-21] MEDS: FERROUS SULFATE 325MG TAB PO SCH (08:20)
[2022-05-21] MEDS: GABAPENTIN 300 MG CAP PO SCH (08:20)
[2022-05-21] MEDS: APIXABAN 5 MG TAB (ELIQUIS) PO SCH (08:21)
[2022-05-21] MEDS ORDERED: predniSONE 20 MG TAB PO SCH (09:00)
[2022-05-21] MEDS ORDERED: ACET1TAB55 PO (13:17)
[2022-05-21] MEDS ORDERED: AMOX875T2 PO (13:17)
[2022-05-21] MEDS ORDERED: VENTAER INH (13:17)
[2022-05-21] MEDS ORDERED: PRED20TA PO (13:17)
[2023-05-11] MEDS ORDERED: NS 1,000 ML IV ONE (00:30)
[2023-05-11] MEDS ORDERED: MIDAZOLAM INJ 2MG/2ML VIAL (J2250 PER 1MG) IV ONE ×2 (23:04→23:06)
== END 2022-05-21 14:21 | disposition home or self-care (01) | DRG 137 ==
LOC: M ED 19:02 → M ED INP 21:41 → M PCU 22:00 → ENRESERV 22:33
PROVIDERS: ADMIT Internal Medicine; ATTEND Family Medicine
PROC: 0W9B00Z Drainage of Left Pleural Cavity with Drainage Device, Open Approach (ICD-10-PCS; principal; 2022-05-11)
PROC: 3E0L3GC Introduction of Other Therapeutic Substance into Pleural Cavity, Percutaneous Approach (ICD-10-PCS; 2022-05-12)
PROC: 3E0L3GC Introduction of Other Therapeutic Substance into Pleural Cavity, Percutaneous Approach (ICD-10-PCS; 2022-05-14)
PROC: B246ZZZ Ultrasonography of Right and Left Heart (ICD-10-PCS; 2022-05-18)
DX: J14 Pneumonia due to Hemophilus influenzae (principal); J96.01 Acute respiratory failure with hypoxia; J86.9 Pyothorax without fistula; I95.89 Other hypotension; E87.1 Hypo-osmolality and hyponatremia; F11.20 Opioid dependence, uncomplicated; E87.70 Fluid overload, unspecified; G25.71 Drug induced akathisia; I48.0 Paroxysmal atrial fibrillation; J44.0 Chronic obstructive pulmonary disease with (acute) lower respiratory infection; I10 Essential (primary) hypertension; J81.1 Chronic pulmonary edema; F32.A Depression, unspecified; F17.210 Nicotine dependence, cigarettes, uncomplicated; J32.9 Chronic sinusitis, unspecified; K21.9 Gastro-esophageal reflux disease without esophagitis; F41.9 Anxiety disorder, unspecified; E78.00 Pure hypercholesterolemia, unspecified; G89.29 Other chronic pain; M25.511 Pain in right shoulder; M25.512 Pain in left shoulder; D50.9 Iron deficiency anemia, unspecified; J98.11 Atelectasis; R74.01 Elevation of levels of liver transaminase levels; J44.1 Chronic obstructive pulmonary disease with (acute) exacerbation; E87.6 Hypokalemia; K80.20 Calculus of gallbladder without cholecystitis without obstruction; J67.8 Hypersensitivity pneumonitis due to other organic dusts; J15.211 Pneumonia due to Methicillin susceptible Staphylococcus aureus; Z79.01 Long term (current) use of anticoagulants; Z86.73 Personal history of transient ischemic attack (TIA), and cerebral infarction without residual deficits; Z79.899 Other long term (current) drug therapy

== ENCOUNTER 2022-05-29 10:21 | Emergency (ER) | payer OTHER ==
[~2022-05-29] VITALS: Ht 175.3 cm; Wt 73.3 kg
[2022-05-29 10:21] VITALS: BP 118/69
== END 2022-05-29 13:30 | disposition left against medical advice (07) ==
LOC: M ED 10:21
DX: Z53.21 Procedure and treatment not carried out due to patient leaving prior to being seen by health care provider (principal)

== ENCOUNTER → 2022-05-29 | Outpatient (CLI) | payer OTHER ==
[~2022-05-29] MED LIST changes: +ACET1TAB55 PO; +AMOX875T2 PO; +FERR325T3 PO; +OMEP40CA5 PO
[2022-05-29 17:39] LABS: BASO % 0.4 % (0.0-1.0); EOS # 0.3 10^3/uL (0.0-0.5); EOS % 3.4 % (0.0-3.0); HEMATOCRIT 33.6 % (42.0-52.0); HEMOGLOBIN 10.3 g/dl (13.5-17.5); LYMPH # 1.8 10^3/uL (1.5-5.0); LYMPH % 23.8 % (24.0-44.0); MEAN CORPUSCULAR HEMOGLOBIN 29.9 pg (27.0-33.0); MEAN CORPUSCULAR HGB CONC 30.7 g/dl (32.0-36.5); MEAN CORPUSCULAR VOLUME 97.7 fl (80.0-96.0); MONO # 0.5 10^3/uL (0.0-0.8); MONO % 6.2 % (2.0-8.0); NEUTROPHILS % 64.9 % (36.0-66.0); PLATELET COUNT, AUTOMATED 336 10^3/uL (150-450); RED BLOOD COUNT 3.44 10^6/uL (4.30-6.10); WHITE BLOOD COUNT 7.7 10^3/uL (4.0-10.0)
[2022-05-29 17:54] LABS: ALBUMIN 2.7 G/DL (3.2-5.2); ALKALINE PHOSPHATASE 136 U/L (46-116); ALT/SGPT 94 U/L (7.0-40); AST/SGOT 105 U/L (<34); BILIRUBIN,TOTAL 0.4 MG/DL (0.3-1.2); BLOOD UREA NITROGEN 13 MG/DL (9-23); CALCIUM LEVEL 8.7 MG/DL (8.5-10.1); CARBON DIOXIDE LEVEL 25 MMOL/L (20-31); CHLORIDE LEVEL 99 MMOL/L (98-107); CREATININE FOR GFR 0.62 MG/DL (0.70-1.30); GLOMERULAR FILTRATION RATE > 60.0 (>56); GLUCOSE, FASTING 65 MG/DL (60-100); POTASSIUM SERUM 4.6 MMOL/L (3.5-5.1); SODIUM LEVEL 137 MMOL/L (136-145)
== END ==
LOC: M PLALAB 15:03
PROVIDERS: ATTEND Physician Assistant Medical
DX: J14 Pneumonia due to Hemophilus influenzae (principal)

== ENCOUNTER → 2022-06-01 | Outpatient (CLI) | payer OTHER | LOC: M PLAIMG 14:39 | PROVIDERS: ATTEND Physician Assistant Medical | DX: J14 Pneumonia due to Hemophilus influenzae (principal) ==

== ENCOUNTER → 2022-07-04 | Outpatient (CLI) | payer OTHER | LOC: M PLALAB 10:37 | PROVIDERS: ATTEND Physician Assistant Medical | DX: J14 Pneumonia due to Hemophilus influenzae (principal); J15.3 Pneumonia due to streptococcus, group B; J93.9 Pneumothorax, unspecified; J96.01 Acute respiratory failure with hypoxia ==

== ENCOUNTER → 2022-08-07 | Outpatient (CLI) | payer OTHER | LOC: M PLAIMG 14:12 | PROVIDERS: ATTEND Internal Medicine Critical Care Medicine | DX: J18.9 Pneumonia, unspecified organism (principal) ==

== ENCOUNTER → 2022-11-12 | Outpatient (REF) | payer OTHER | LOC: M SFHCPLAZ 15:13 | PROVIDERS: ATTEND Physician Assistant Medical | DX: D50.9 Iron deficiency anemia, unspecified (principal); I10 Essential (primary) hypertension; E78.2 Mixed hyperlipidemia ==

== ENCOUNTER → 2022-11-14 | Outpatient (CLI) | payer OTHER ==
[2022-11-14 12:20] LABS: BASO # 0.1 10^3/uL (0.0-0.2); BASO % 0.7 % (0.0-1.0); EOS # 0.7 10^3/uL (0.0-0.5); EOS % 9.1 % (0.0-3.0); HEMATOCRIT 43.3 % (42.0-52.0); HEMOGLOBIN 14.2 g/dl (13.5-17.5); LYMPH # 2.3 10^3/uL (1.5-5.0); LYMPH % 31.5 % (24.0-44.0); MEAN CORPUSCULAR HEMOGLOBIN 31.6 pg (27.0-33.0); MEAN CORPUSCULAR HGB CONC 32.8 g/dl (32.0-36.5); MEAN CORPUSCULAR VOLUME 96.4 fl (80.0-96.0); MONO # 0.6 10^3/uL (0.0-0.8); NEUTROPHILS # 3.7 10^3/uL (1.5-8.5); NEUTROPHILS % 50.3 % (36.0-66.0); PLATELET COUNT, AUTOMATED 228 10^3/uL (150-450); RED BLOOD COUNT 4.49 10^6/uL (4.30-6.10); WHITE BLOOD COUNT 7.3 10^3/uL (4.0-10.0)
[2022-11-14 12:31] LABS: IRON (FE) 105 UG/DL (65-175)
[2022-11-14 12:32] LABS: ALBUMIN 4.1 G/DL (3.2-5.2); ALKALINE PHOSPHATASE 60 U/L (46-116); ALT/SGPT 15 U/L (7.0-40); AST/SGOT 17 U/L (<34); BILIRUBIN,TOTAL 0.7 MG/DL (0.3-1.2); BLOOD UREA NITROGEN 12 MG/DL (9-23); CALCIUM LEVEL 10.3 MG/DL (8.5-10.1); CARBON DIOXIDE LEVEL 31 MMOL/L (20-31); CHLORIDE LEVEL 103 MMOL/L (98-107); CHOLESTEROL LEVEL 162 MG/DL (<200); CHOLESTEROL RISK RATIO 2.88 (<5); CREATININE FOR GFR 0.72 MG/DL (0.70-1.30); GLOMERULAR FILTRATION RATE > 60.0 (>56); GLUCOSE, FASTING 80 MG/DL (60-100); HDL CHOLESTEROL 56.2 MG/DL (>40); LDL CHOLESTEROL 78.6 MG/DL (<100); NON-HDL-C 105.8 MG/DL; POTASSIUM SERUM 4.1 MMOL/L (3.5-5.1); SODIUM LEVEL 138 MMOL/L (136-145); TOTAL PROTEIN 7.1 G/DL (5.7-8.2); TRIGLYCERIDES LEVEL 136 MG/DL (<150)
[2022-11-14 12:33] LABS: FERRITIN 103.5 NG/ML (10.5-307.3)
== END ==
LOC: M LAB 11:21
PROVIDERS: ATTEND Physician Assistant Medical
DX: E78.2 Mixed hyperlipidemia (principal); D50.9 Iron deficiency anemia, unspecified

== ENCOUNTER → 2023-01-02 | Outpatient (CLI) | payer OTHER ==
[2023-01-02 17:48] LABS: HEMATOCRIT 43.7 % (42.0-52.0); HEMOGLOBIN 14.8 g/dl (13.5-17.5); MEAN CORPUSCULAR HEMOGLOBIN 32.3 pg (27.0-33.0); MEAN CORPUSCULAR HGB CONC 33.9 g/dl (32.0-36.5); MEAN CORPUSCULAR VOLUME 95.4 fl (80.0-96.0); PLATELET COUNT, AUTOMATED 244 10^3/uL (150-450); RED BLOOD COUNT 4.58 10^6/uL (4.30-6.10); WHITE BLOOD COUNT 8.1 10^3/uL (4.0-10.0)
[2023-01-02 18:10] LABS: ALKALINE PHOSPHATASE 64 U/L (46-116); ALT/SGPT 19 U/L (7.0-40); AST/SGOT 20 U/L (<34); BILIRUBIN,TOTAL 0.3 MG/DL (0.3-1.2); BLOOD UREA NITROGEN 11 MG/DL (9-23); CALCIUM LEVEL 9.1 MG/DL (8.5-10.1); CARBON DIOXIDE LEVEL 28 MMOL/L (20-31); CHLORIDE LEVEL 104 MMOL/L (98-107); CREATININE FOR GFR 0.74 MG/DL (0.70-1.30); GLOMERULAR FILTRATION RATE > 60.0 (>56); GLUCOSE, FASTING 80 MG/DL (60-100); POTASSIUM SERUM 4.3 MMOL/L (3.5-5.1); SODIUM LEVEL 138 MMOL/L (136-145)
[2023-01-02 18:38] LABS: HIV 1&2 SCREEN NEGATIVE (NEGATIVE)
[2023-01-02 18:45] LABS: HEPATITIS C VIRUS ABY INDEX 0.13 INDEX (<0.8)
[2023-01-02 19:19] LABS: GC DNA AMPLIFICATION NEGATIVE (NEGATIVE)
== END ==
LOC: M LAB 17:04
PROVIDERS: ATTEND Family Medicine
DX: F11.20 Opioid dependence, uncomplicated (principal)

== ENCOUNTER 2023-01-14 11:51 | Emergency (ER) | payer OTHER ==
[~2023-01-14] VITALS: Ht 175.3 cm; Wt 70.9 kg
[2023-01-14] MEDS ORDERED: IPRATROPIUM 0.5MG/ALBUTEROL 2.5MG INH SOL UD 3ML (DUONEB) NEB ONE (15:40)
[2023-01-14] MEDS ORDERED: methylPREDNISolone 125MG 2ML VIAL IV ONE (15:40)
[2023-01-14 16:00] LABS: BASO # 0.1 10^3/uL (0.0-0.2); BASO % 0.9 % (0.0-1.0); EOS # 0.5 10^3/uL (0.0-0.5); EOS % 7.3 % (0.0-3.0); HEMATOCRIT 46.1 % (42.0-52.0); HEMOGLOBIN 15.2 g/dl (13.5-17.5); LYMPH # 1.2 10^3/uL (1.5-5.0); LYMPH % 18.6 % (24.0-44.0); MEAN CORPUSCULAR HEMOGLOBIN 31.5 pg (27.0-33.0); MEAN CORPUSCULAR VOLUME 95.6 fl (80.0-96.0); MONO # 0.3 10^3/uL (0.0-0.8); NEUTROPHILS # 4.5 10^3/uL (1.5-8.5); NEUTROPHILS % 67.7 % (36.0-66.0); PLATELET COUNT, AUTOMATED 260 10^3/uL (150-450); RED BLOOD COUNT 4.82 10^6/uL (4.30-6.10); WHITE BLOOD COUNT 6.6 10^3/uL (4.0-10.0)
[2023-01-14 16:27] LABS: ALBUMIN 4.2 G/DL (3.2-5.2); ALKALINE PHOSPHATASE 59 U/L (46-116); ALT/SGPT 17 U/L (7.0-40); AST/SGOT 17 U/L (<34); BILIRUBIN,DIRECT 0.1 MG/DL (<0.4); BILIRUBIN,TOTAL 0.5 MG/DL (0.3-1.2); BLOOD UREA NITROGEN 13 MG/DL (9-23); CALCIUM LEVEL 9.4 MG/DL (8.5-10.1); CARBON DIOXIDE LEVEL 28 MMOL/L (20-31); CHLORIDE LEVEL 103 MMOL/L (98-107); CREATININE FOR GFR 0.73 MG/DL (0.70-1.30); GLOMERULAR FILTRATION RATE > 60.0 (>56); GLUCOSE, FASTING 111 MG/DL (60-100); POTASSIUM SERUM 4.6 MMOL/L (3.5-5.1); SODIUM LEVEL 137 MMOL/L (136-145); TOTAL PROTEIN 7.7 G/DL (5.7-8.2)
[2023-01-14 16:29] LABS: THYROID STIMULATING HORMONE 2.099 uIU/ML (0.55-4.78); THYROXINE (T4) 5.5 UG/DL (4.5-10.9)
[2023-01-14 17:26] VITALS: BP 130/84; TEMP 98; O2SAT 91
[2023-01-14] MEDS ORDERED: COMBAER6 INH (17:26)
== END 2023-01-14 17:30 | disposition home or self-care (01) ==
LOC: M ED 11:51
DX: J45.901 Unspecified asthma with (acute) exacerbation (principal); I11.9 Hypertensive heart disease without heart failure; I50.20 Unspecified systolic (congestive) heart failure; I25.10 Atherosclerotic heart disease of native coronary artery without angina pectoris; J44.9 Chronic obstructive pulmonary disease, unspecified; Z86.73 Personal history of transient ischemic attack (TIA), and cerebral infarction without residual deficits; Z79.01 Long term (current) use of anticoagulants; Z87.891 Personal history of nicotine dependence; Z79.899 Other long term (current) drug therapy; Z79.51 Long term (current) use of inhaled steroids
CPT/HCPCS: 71046; 80048; 80076; 83880; 84436; 84443; 85025; 87486; 87581; 87633; 87798; 93005; 94640; 94760; 96374; 99284; J2930

== ENCOUNTER → 2023-03-30 | Outpatient (CLI) | payer OTHER ==
[~2023-03-30] MED LIST changes: -CEFD300C41 PO; +CEFD300C42 PO; +COMBAER6 INH
[2023-03-30 08:43] LABS: BASO % 0.5 % (0.0-1.0); EOS # 0.6 10^3/uL (0.0-0.5); EOS % 8.7 % (0.0-3.0); HEMATOCRIT 39.4 % (42.0-52.0); HEMOGLOBIN 13.5 g/dl (13.5-17.5); LYMPH # 2.5 10^3/uL (1.5-5.0); LYMPH % 33.6 % (24.0-44.0); MEAN CORPUSCULAR HGB CONC 34.3 g/dl (32.0-36.5); MEAN CORPUSCULAR VOLUME 96.3 fl (80.0-96.0); MONO # 0.6 10^3/uL (0.0-0.8); MONO % 8.7 % (2.0-8.0); NEUTROPHILS # 3.6 10^3/uL (1.5-8.5); NEUTROPHILS % 48.4 % (36.0-66.0); PLATELET COUNT, AUTOMATED 248 10^3/uL (150-450); RED BLOOD COUNT 4.09 10^6/uL (4.30-6.10); WHITE BLOOD COUNT 7.4 10^3/uL (4.0-10.0)
[2023-03-30 09:02] LABS: ALBUMIN 3.7 G/DL (3.2-5.2); ALKALINE PHOSPHATASE 74 U/L (46-116); ALT/SGPT 20 U/L (7.0-40); AST/SGOT 15 U/L (<34); BILIRUBIN,TOTAL 0.2 MG/DL (0.3-1.2); BLOOD UREA NITROGEN 10 MG/DL (9-23); CALCIUM LEVEL 8.7 MG/DL (8.5-10.1); CARBON DIOXIDE LEVEL 29 MMOL/L (20-31); CHLORIDE LEVEL 105 MMOL/L (98-107); CREATININE FOR GFR 0.77 MG/DL (0.70-1.30); GLOMERULAR FILTRATION RATE > 60.0 (>56); GLUCOSE, FASTING 102 MG/DL (60-100); POTASSIUM SERUM 3.8 MMOL/L (3.5-5.1); SODIUM LEVEL 138 MMOL/L (136-145); TOTAL PROTEIN 6.5 G/DL (5.7-8.2)
[2023-03-30 09:03] LABS: IRON (FE) 36 UG/DL (65-175)
[2023-03-30 09:04] LABS: FERRITIN 44.5 NG/ML (10.5-307.3)
== END ==
LOC: M LAB 08:15
PROVIDERS: ATTEND Physician Assistant Medical
DX: F11.20 Opioid dependence, uncomplicated (principal); D50.9 Iron deficiency anemia, unspecified

== ENCOUNTER → 2023-08-09 | Outpatient (CLI) | payer OTHER ==
[~2023-08-09] MED LIST changes: +CEFD1CAP9 PO; -CEFD300C42 PO
== END ==
LOC: M RAD 16:37
PROVIDERS: ATTEND Internal Medicine Critical Care Medicine
DX: Z12.2 Encounter for screening for malignant neoplasm of respiratory organs (principal); Z87.891 Personal history of nicotine dependence; R91.8 Other nonspecific abnormal finding of lung field; J47.9 Bronchiectasis, uncomplicated; K80.20 Calculus of gallbladder without cholecystitis without obstruction

== ENCOUNTER → 2023-08-15 | Outpatient (CLI) | payer OTHER ==
[2023-08-15 14:32] LABS: HEMATOCRIT 43.8 % (42.0-52.0); HEMOGLOBIN 14.4 g/dl (13.5-17.5); MEAN CORPUSCULAR HEMOGLOBIN 33.1 pg (27.0-33.0); MEAN CORPUSCULAR HGB CONC 32.9 g/dl (32.0-36.5); MEAN CORPUSCULAR VOLUME 100.7 fl (80.0-96.0); PLATELET COUNT, AUTOMATED 287 10^3/uL (150-450); RED BLOOD COUNT 4.35 10^6/uL (4.30-6.10)
[2023-08-15 15:02] LABS: ALBUMIN 3.7 G/DL (3.2-5.2); ALKALINE PHOSPHATASE 59 U/L (46-116); ALT/SGPT 20 U/L (7.0-40); AST/SGOT 13 U/L (<34); BILIRUBIN,TOTAL 0.4 MG/DL (0.3-1.2); BLOOD UREA NITROGEN 10 MG/DL (9-23); CALCIUM LEVEL 9.4 MG/DL (8.5-10.1); CARBON DIOXIDE LEVEL 30 MMOL/L (20-31); CHLORIDE LEVEL 105 MMOL/L (98-107); CREATININE FOR GFR 0.74 MG/DL (0.70-1.30); GLOMERULAR FILTRATION RATE > 60.0 (>56); GLUCOSE, FASTING 85 MG/DL (60-100); POTASSIUM SERUM 5.1 MMOL/L (3.5-5.1); SODIUM LEVEL 137 MMOL/L (136-145); TOTAL PROTEIN 7.1 G/DL (5.7-8.2)
[2023-08-15 15:28] LABS: HIV 1&2 SCREEN NEGATIVE (NEGATIVE)
[2023-08-15 15:37] LABS: HEPATITIS C VIRUS ABY INDEX < 0.02 INDEX (<0.8)
[2023-08-15 15:55] LABS: GC DNA AMPLIFICATION NEGATIVE (NEGATIVE)
== END ==
LOC: M PLALAB 11:02
PROVIDERS: ATTEND Family Medicine
DX: F11.20 Opioid dependence, uncomplicated (principal)

== ENCOUNTER → 2023-08-15 | Outpatient (CLI) | payer OTHER ==
[2023-08-15 14:32] LABS: BASO # 0.1 10^3/uL (0.0-0.2); BASO % 0.7 % (0.0-1.0); EOS # 0.5 10^3/uL (0.0-0.5); EOS % 6.5 % (0.0-3.0); HEMATOCRIT 44.1 % (42.0-52.0); HEMOGLOBIN 14.5 g/dl (13.5-17.5); LYMPH # 1.1 10^3/uL (1.5-5.0); LYMPH % 15.9 % (24.0-44.0); MEAN CORPUSCULAR HEMOGLOBIN 32.7 pg (27.0-33.0); MEAN CORPUSCULAR HGB CONC 32.9 g/dl (32.0-36.5); MEAN CORPUSCULAR VOLUME 99.5 fl (80.0-96.0); MONO # 0.5 10^3/uL (0.0-0.8); MONO % 7.1 % (2.0-8.0); NEUTROPHILS # 4.8 10^3/uL (1.5-8.5); NEUTROPHILS % 69.2 % (36.0-66.0); PLATELET COUNT, AUTOMATED 290 10^3/uL (150-450); RED BLOOD COUNT 4.43 10^6/uL (4.30-6.10); WHITE BLOOD COUNT 6.9 10^3/uL (4.0-10.0)
== END ==
LOC: M PLALAB 10:56
PROVIDERS: ATTEND Physician Assistant Medical
DX: D50.9 Iron deficiency anemia, unspecified (principal)

== ENCOUNTER 2023-10-25 07:39 | Inpatient (IN) | payer OTHER ==
[~2023-10-25] VITALS: Ht 175.3 cm; Wt 72.9 kg
[~2023-10-25 07:39] MED LIST changes: -ROSU40TA4 PO; +ROSU40TA63 PO
[2023-10-25] MEDS ORDERED: QUET50TA4 PO (08:03)
[2023-10-25] MEDS ORDERED: FLUT1BLS8 INH (08:03)
[2023-10-25] MEDS ORDERED: SERT50TA29 PO (08:03)
[2023-10-25 09:00] LABS: VENOUS BASE EXCESS -3.9 (-2.0-2.0); VENOUS HCO3 22.2 MMOL/L (23.0-27.0); VENOUS O2 SATURATION 84.1 % (60.0-80.0); VENOUS PARTIAL PRESSURE O2 49.7 mmHg (30.0-50.0); VENOUS STANDARD HCO3 20.9 MMOL/L; VENOUS TOTAL CO2 23.5 MMOL/L (24.0-28.0)
[2023-10-25] MEDS: guaiFENesin ER TABLET 600 MG TAB PO SCH (09:00)
[2023-10-25 09:12] LABS: BASO # 0.1 10^3/uL (0.0-0.2); BASO % 0.6 % (0.0-1.0); EOS # 0.4 10^3/uL (0.0-0.5); EOS % 5.1 % (0.0-3.0); HEMATOCRIT 42.7 % (42.0-52.0); HEMOGLOBIN 14.7 g/dl (13.5-17.5); LYMPH # 0.8 10^3/uL (1.5-5.0); LYMPH % 10.1 % (24.0-44.0); MEAN CORPUSCULAR HEMOGLOBIN 33.5 pg (27.0-33.0); MEAN CORPUSCULAR HGB CONC 34.4 g/dl (32.0-36.5); MEAN CORPUSCULAR VOLUME 97.3 fl (80.0-96.0); MONO # 0.2 10^3/uL (0.0-0.8); MONO % 2.8 % (2.0-8.0); NEUTROPHILS # 6.6 10^3/uL (1.5-8.5); NEUTROPHILS % 81.2 % (36.0-66.0); PLATELET COUNT, AUTOMATED 174 10^3/uL (150-450); RED BLOOD COUNT 4.39 10^6/uL (4.30-6.10); WHITE BLOOD COUNT 8.1 10^3/uL (4.0-10.0)
[2023-10-25 09:31] LABS: ALBUMIN 3.5 G/DL (3.2-5.2); ALKALINE PHOSPHATASE 51 U/L (46-116); ALT/SGPT 24 U/L (7.0-40); AST/SGOT 15 U/L (<34); BILIRUBIN,DIRECT 0.1 MG/DL (<0.4); BILIRUBIN,TOTAL 0.4 MG/DL (0.3-1.2); BLOOD UREA NITROGEN 12 MG/DL (9-23); CALCIUM LEVEL 8.9 MG/DL (8.5-10.1); CARBON DIOXIDE LEVEL 28 MMOL/L (20-31); CHLORIDE LEVEL 108 MMOL/L (98-107); CREATININE FOR GFR 0.77 MG/DL (0.70-1.30); GLOMERULAR FILTRATION RATE > 60.0 (>56); GLUCOSE, FASTING 112 MG/DL (60-100); POTASSIUM SERUM 4.1 MMOL/L (3.5-5.1); SODIUM LEVEL 140 MMOL/L (136-145); TOTAL PROTEIN 6.3 G/DL (5.7-8.2)
[2023-10-25 11:32] LABS: C REACTIVE PROTEIN QUANTITATIV < 0.40 MG/DL (<1.0); CK-MB VALUE MASS 1.4 NG/ML (<3.6)
[2023-10-25 11:33] LABS: CPK CREATINE PHOSPHOKINASE 171 U/L (46-171); MB/CK RELATIVE INDEX 0.81 (< OR =4)
[2023-10-25 11:40] LABS: PROCALCITONIN <0.04 ng/ml
[2023-10-25] MEDS: IPRATROPIUM 0.5MG/ALBUTEROL 2.5MG INH SOL UD 3ML (DUONEB) NEB ONE ×2 (12:06→12:07)
[2023-10-25] MEDS: LORATADINE 10 MG TAB PO ONE (12:14)
[2023-10-25] MEDS: methylPREDNISolone 125MG 2ML VIAL IV ONE (12:14)
[2023-10-25] MEDS: FLUTICASONE PROP 0.05% NASAL SPRAY 16 GM (FLONASE) NARES ONE (12:14)
[2023-10-25] MEDS ORDERED: IPRATROPIUM 0.5MG/ALBUTEROL 2.5MG INH SOL UD 3ML (DUONEB) NEB PRN (12:35)
[2023-10-25] MEDS: AZITHROMYCIN 250MG TABLET PO ONE (12:57)
[2023-10-25] MEDS: cefTRIAXone SOD 2 GM in D5W MINI-BAG PLUS 50 ML IV SCH (12:59)
[2023-10-25] MEDS ORDERED: ALBU8.5H INH (13:03)
[2023-10-25] MEDS ORDERED: COMBAER6 INH (13:03)
[2023-10-25] MEDS ORDERED: HOME MED LIST COMPLETE! XX SCH (13:10)
[2023-10-25 14:12] VITALS: BP 115/80; TEMP 97.5; O2SAT 98
[2023-10-25] MEDS: METHADONE 10MG TAB PO SCH (14:47)
[2023-10-25] MEDS ORDERED: ISOVUE-370 76% 100ML VIAL As Ordered ONE (15:10)
[2023-10-25] MEDS: TIOTROPIUM INHALER/CAPSULE (SPIRIVA) INH SCH (15:24)
[2023-10-25] MEDS: IPRATROPIUM 0.5MG/ALBUTEROL 2.5MG INH SOL UD 3ML (DUONEB) NEB SCH (15:24)
[2023-10-25] MEDS: GABAPENTIN 400MG CAP PO SCH (16:00)
[2023-10-25] MEDS: SERTRALINE HCL 50 MG TAB PO SCH (16:00)
[2023-10-25] MEDS: GABAPENTIN 100 MG CAP PO SCH (16:00)
[2023-10-25] MEDS: methylPREDNISolone 125MG 2ML VIAL IV SCH (18:11)
[2023-10-25] MEDS: SYMBICORT 160/4.5MCG INHALER 6GM INH SCH (19:50)
[2023-10-25 20:41] VITALS: BP 127/80; TEMP 97.7; O2SAT 90
[2023-10-25] MEDS: APIXABAN 5 MG TAB (ELIQUIS) PO SCH (21:02)
[2023-10-25] MEDS: ROSUVASTATIN 10 MG TAB (CRESTOR) PO SCH (21:02)
[2023-10-25] MEDS: QUEtiapine FUMARATE 50MG TAB PO SCH (21:02)
[2023-10-26 06:36] VITALS: BP 122/79; TEMP 97.5; O2SAT 91
[2023-10-26] MEDS ORDERED: MUCI600T31 PO (07:12)
[2023-10-26] MEDS ORDERED: ALBU8.5H INH (07:15)
[2023-10-26] MEDS ORDERED: PRED10TA2 PO (07:15)
[2023-10-26] MEDS ORDERED: PRED20TA PO (07:15)
[2023-10-26] MEDS ORDERED: CEFD300CAP PO (07:15)
[2023-10-26] MEDS ORDERED: AZIT-12 PO ×2 (07:15)
[2023-10-26 07:52] VITALS: O2SAT 92
[2023-10-26] MEDS ORDERED: TIOTROPIUM INHALER/CAPSULE (SPIRIVA) INH SCH (08:00)
[2023-10-26] MEDS: AZITHROMYCIN 250MG TABLET PO SCH (08:15)
[2023-10-26 08:30] VITALS: O2SAT 92
[2023-10-26] MEDS ORDERED: ENTER DRUG NAME HERE (PATIENT'S OWN MED) INH SCH (09:00)
== END 2023-10-26 09:15 | disposition home health service (06) | DRG 133 ==
LOC: M ED 07:39 → M ED INP 12:31 → M MS5PR 14:10
PROVIDERS: ADMIT General Practice; ATTEND General Practice
DX: J96.01 Acute respiratory failure with hypoxia (principal); N17.9 Acute kidney failure, unspecified; J18.9 Pneumonia, unspecified organism; J44.1 Chronic obstructive pulmonary disease with (acute) exacerbation; I69.354 Hemiplegia and hemiparesis following cerebral infarction affecting left non-dominant side; G62.9 Polyneuropathy, unspecified; J44.0 Chronic obstructive pulmonary disease with (acute) lower respiratory infection; J44.9 Chronic obstructive pulmonary disease, unspecified; I10 Essential (primary) hypertension; E78.00 Pure hypercholesterolemia, unspecified; E03.9 Hypothyroidism, unspecified; F41.9 Anxiety disorder, unspecified; F32.A Depression, unspecified; K21.9 Gastro-esophageal reflux disease without esophagitis; N40.0 Benign prostatic hyperplasia without lower urinary tract symptoms; R07.89 Other chest pain; F10.10 Alcohol abuse, uncomplicated; F11.10 Opioid abuse, uncomplicated; G47.33 Obstructive sleep apnea (adult) (pediatric); J45.909 Unspecified asthma, uncomplicated; Z79.01 Long term (current) use of anticoagulants; Z87.891 Personal history of nicotine dependence; Z79.899 Other long term (current) drug therapy

== ENCOUNTER → 2023-12-02 | Outpatient (CLI) | payer OTHER ==
[~2023-12-02] MED LIST changes: +ALBU8.5H INH; +AZIT-12 PO; +CEFD300CAP PO; +FLUT1BLS8 INH; +MUCI600T31 PO; +QUET50TA4 PO; +SERT50TA29 PO
== END ==
LOC: M PLAIMG 15:01
PROVIDERS: ATTEND Physician Assistant Medical
DX: Z09 Encounter for follow-up examination after completed treatment for conditions other than malignant neoplasm (principal)

== ENCOUNTER → 2024-01-31 | Outpatient (CLI) | payer OTHER ==
[~2024-01-31] MED LIST changes: +GABA-1635 PO; -GABA800T4 PO; -ROSU40TA63 PO; +ROSU40TA81 PO
[2024-01-31 15:38] LABS: CHOLESTEROL RISK RATIO 2.59 (<5); HDL CHOLESTEROL 67.8 MG/DL (>40); LDL CHOLESTEROL 93.8 MG/DL (<100); NON-HDL-C 108.2 MG/DL
[2024-01-31 15:40] LABS: FREE T4 0.9 NG/DL (0.89-1.76)
[2024-01-31 15:41] LABS: THYROID STIMULATING HORMONE 3.354 uIU/ML (0.55-4.78)
== END ==
LOC: M PLALAB 12:42
PROVIDERS: ATTEND Physician Assistant Medical
DX: E78.2 Mixed hyperlipidemia (principal); E03.9 Hypothyroidism, unspecified

== ENCOUNTER → 2024-06-07 | Outpatient (CLI) | payer OTHER ==
[~2024-06-07] MED LIST changes: -SIME180C25 PO; +SIME1CAP4 PO
[2024-06-07 13:14] LABS: BASO % 0.6 % (0.0-1.0); EOS # 0.3 10^3/uL (0.0-0.5); EOS % 4.7 % (0.0-3.0); HEMATOCRIT 43.4 % (42.0-52.0); HEMOGLOBIN 15.3 g/dl (13.5-17.5); LYMPH # 1.7 10^3/uL (1.5-5.0); LYMPH % 25.6 % (24.0-44.0); MEAN CORPUSCULAR HEMOGLOBIN 33.7 pg (27.0-33.0); MEAN CORPUSCULAR HGB CONC 35.3 g/dl (32.0-36.5); MEAN CORPUSCULAR VOLUME 95.6 fl (80.0-96.0); MONO # 0.5 10^3/uL (0.0-0.8); MONO % 7.3 % (2.0-8.0); NEUTROPHILS % 61.2 % (36.0-66.0); PLATELET COUNT, AUTOMATED 198 10^3/uL (150-450); RED BLOOD COUNT 4.54 10^6/uL (4.30-6.10); WHITE BLOOD COUNT 6.6 10^3/uL (4.0-10.0)
[2024-06-07 13:40] LABS: HEMOGLOBIN A1c 4.9 % (4.0-6.0)
[2024-06-07 13:46] LABS: ALBUMIN 3.9 G/DL (3.2-5.2); ALKALINE PHOSPHATASE 64 U/L (40-129); ALT/SGPT 31 U/L (7.0-40); AST/SGOT 33 U/L (<34); BILIRUBIN,TOTAL 0.5 MG/DL (0.3-1.2); BLOOD UREA NITROGEN 20 MG/DL (9-23); CALCIUM LEVEL 9.9 MG/DL (8.5-10.1); CARBON DIOXIDE LEVEL 26 MMOL/L (20-31); CHLORIDE LEVEL 103 MMOL/L (98-107); CREATININE FOR GFR 0.82 MG/DL (0.70-1.30); GLOMERULAR FILTRATION RATE > 60.0 (>56); GLUCOSE, FASTING 126 MG/DL (60-100); POTASSIUM SERUM 4.1 MMOL/L (3.5-5.1); SODIUM LEVEL 137 MMOL/L (136-145); TOTAL PROTEIN 7.7 G/DL (5.7-8.2)
[2024-06-07 13:48] LABS: FREE T4 0.93 NG/DL (0.89-1.76)
[2024-06-07 13:49] LABS: THYROID STIMULATING HORMONE 7.503 uIU/ML (0.55-4.78)
== END ==
LOC: M LAB 12:46
PROVIDERS: ATTEND Physician Assistant Medical
DX: I10 Essential (primary) hypertension (principal)

== ENCOUNTER → 2024-06-17 | Outpatient (CLI) | payer OTHER ==
[2024-06-17 19:20] LABS: FREE T4 0.95 NG/DL (0.89-1.76)
[2024-06-17 19:21] LABS: THYROID STIMULATING HORMONE 3.36 uIU/ML (0.55-4.78)
== END ==
LOC: M PLALAB 15:17
PROVIDERS: ATTEND Physician Assistant Medical
DX: E03.9 Hypothyroidism, unspecified (principal)

== ENCOUNTER → 2024-08-11 | Outpatient (CLI) | payer OTHER ==
[2024-08-11 14:11] LABS: HEMATOCRIT 43.5 % (42.0-52.0); HEMOGLOBIN 14.6 g/dl (13.5-17.5); MEAN CORPUSCULAR HGB CONC 33.6 g/dl (32.0-36.5); MEAN CORPUSCULAR VOLUME 98.2 fl (80.0-96.0); PLATELET COUNT, AUTOMATED 192 10^3/uL (150-450); RED BLOOD COUNT 4.43 10^6/uL (4.30-6.10); WHITE BLOOD COUNT 6.3 10^3/uL (4.0-10.0)
[2024-08-11 14:18] LABS: ALBUMIN 3.8 G/DL (3.2-5.2); ALKALINE PHOSPHATASE 57 U/L (40-129); ALT/SGPT 28 U/L (7.0-40); AST/SGOT 25 U/L (<34); BILIRUBIN,TOTAL 0.4 MG/DL (0.3-1.2); BLOOD UREA NITROGEN 26 MG/DL (9-23); CARBON DIOXIDE LEVEL 26 MMOL/L (20-31); CHLORIDE LEVEL 108 MMOL/L (98-107); CREATININE FOR GFR 0.76 MG/DL (0.70-1.30); GLOMERULAR FILTRATION RATE > 60.0 (>56); GLUCOSE, FASTING 105 MG/DL (60-100); POTASSIUM SERUM 4.2 MMOL/L (3.5-5.1); SODIUM LEVEL 139 MMOL/L (136-145); TOTAL PROTEIN 7.2 G/DL (5.7-8.2)
[2024-08-11 14:38] LABS: HEPATITIS B SURFACE ANTIGEN NEGATIVE (NEGATIVE)
[2024-08-11 14:51] LABS: HIV 1&2 SCREEN NEGATIVE (NEGATIVE)
[2024-08-11 14:59] LABS: HEPATITIS C VIRUS ABY INDEX 0.03 INDEX (<0.8)
[2024-08-11 15:18] LABS: GC DNA AMPLIFICATION NEGATIVE (NEGATIVE)
== END ==
LOC: M PLALAB 11:52
PROVIDERS: ATTEND Family Medicine
DX: F11.20 Opioid dependence, uncomplicated (principal)

== ENCOUNTER → 2024-08-25 | Outpatient (CLI) | payer OTHER ==
[2024-08-25 18:51] LABS: FREE T4 1.07 NG/DL (0.89-1.76); THYROID STIMULATING HORMONE 2.85 uIU/ML (0.55-4.78)
== END ==
LOC: M PLALAB 15:27
PROVIDERS: ATTEND Physician Assistant Medical
DX: I10 Essential (primary) hypertension (principal)

== ENCOUNTER → 2025-02-04 | Outpatient (CLI) | payer OTHER ==
[~2025-02-04] MED LIST changes: -FLOM0.4C39 PO; +TAMS-18 PO
[2025-02-04 16:00] LABS: BASO # 0.0 10^3/uL (0.0-0.2); BASO % 0.6 % (0.0-1.0); EOS # 0.2 10^3/uL (0.0-0.5); EOS % 3.3 % (0.0-3.0); LYMPH # 1.4 10^3/uL (1.5-5.0); LYMPH % 20.8 % (24.0-44.0); MONO # 0.6 10^3/uL (0.0-0.8); MONO % 8.0 % (2.0-8.0); NEUTROPHILS # 4.6 10^3/uL (1.5-8.5); NEUTROPHILS % 66.3 % (36.0-66.0); PLATELET COUNT, AUTOMATED 233 10^3/uL (150-450)
[2025-02-04 16:06] LABS: ALT/SGPT 39 U/L (7.0-40); AST/SGOT 36 U/L (<34); CALCIUM LEVEL 10.0 MG/DL (8.5-10.1); CARBON DIOXIDE LEVEL 29 MMOL/L (20-31); CHLORIDE LEVEL 103 MMOL/L (98-107); CHOLESTEROL LEVEL 235 MG/DL (<200); CHOLESTEROL RISK RATIO 3.08 (<5); CREATININE FOR GFR 0.83 MG/DL (0.70-1.30); GLOMERULAR FILTRATION RATE > 90.0 (>56); LDL CHOLESTEROL 128.9 MG/DL (<100); LUTEINIZING HORMONE 1.1 mIU/ML (1.5-9.3); NON-HDL-C 158.9 MG/DL; POTASSIUM SERUM 5.0 MMOL/L (3.5-5.1); PROLACTIN 2.20 NG/ML (2.1-17.7); SODIUM LEVEL 141 MMOL/L (136-145); TRIGLYCERIDES LEVEL 150 MG/DL (<150)
[2025-02-04 16:07] LABS: FREE T4 0.99 NG/DL (0.89-1.76)
== END ==
LOC: M PLALAB 13:10
PROVIDERS: ATTEND Physician Assistant Medical
DX: N52.9 Male erectile dysfunction, unspecified (principal); F41.9 Anxiety disorder, unspecified; E29.1 Testicular hypofunction; J30.2 Other seasonal allergic rhinitis

== ENCOUNTER → 2025-04-20 | Outpatient (CLI) | payer OTHER ==
[2025-04-20 15:53] LABS: PSA SCREENING 0.24 NG/ML (< 4.00)
[2025-04-20 15:56] LABS: ALT/SGPT 36 U/L (7.0-40); AST/SGOT 37 U/L (<34); CALCIUM LEVEL 9.1 MG/DL (8.5-10.1); CARBON DIOXIDE LEVEL 31 MMOL/L (20-31); CHLORIDE LEVEL 106 MMOL/L (98-107); CREATININE FOR GFR 0.87 MG/DL (0.70-1.30); GLOMERULAR FILTRATION RATE > 90.0 (>56); POTASSIUM SERUM 4.3 MMOL/L (3.5-5.1); SODIUM LEVEL 142 MMOL/L (136-145)
[2025-04-20 15:58] LABS: FREE T4 0.91 NG/DL (0.89-1.76)
== END ==
LOC: M PLALAB 13:51
PROVIDERS: ATTEND Physician Assistant Medical
DX: Z12.5 Encounter for screening for malignant neoplasm of prostate (principal); E03.9 Hypothyroidism, unspecified

== ENCOUNTER → 2025-04-28 | Outpatient (CLI) | payer OTHER ==
[2025-04-28 16:01] LABS: BASO # 0.0 10^3/uL (0.0-0.2); BASO % 0.6 % (0.0-1.0); EOS # 0.2 10^3/uL (0.0-0.5); EOS % 3.2 % (0.0-3.0); LYMPH # 1.4 10^3/uL (1.5-5.0); LYMPH % 20.3 % (24.0-44.0); MONO # 0.6 10^3/uL (0.0-0.8); MONO % 8.4 % (2.0-8.0); NEUTROPHILS # 4.6 10^3/uL (1.5-8.5); NEUTROPHILS % 66.9 % (36.0-66.0); PLATELET COUNT, AUTOMATED 186 10^3/uL (150-450)
== END ==
LOC: M PLALAB 12:50
PROVIDERS: ATTEND Physician Assistant Medical
DX: I10 Essential (primary) hypertension (principal)